=== PATIENT | female | born 1930 | race Caucasian/White ===

== ENCOUNTER 2017-04-05 16:43 | Emergency (ER) | payer MEDICARE, MEDICAID ==
[2017-04-05 16:43] VITALS: PULSE 71; BMI 23.8
[2017-04-05 16:47] VITALS: BP 130/72; TEMP 97.9; O2SAT 98
--- NOTE | 2017-04-05 17:04 | C.PDOC ---
History Of Present Illness 86 y/o female presents to ED with complaints of left ankle pain for 5 days. Patient states she twisted ankle, has been taking Aleve and applying ice to area. Patients states pain is worse when walking and noted swelling which prompted visit to ED today. Patient denies numbness, calf pain, other injury or any other associated complaints at this time. Time Seen by Provider: 04/05/17 16:59 Chief Complaint (Nursing): Lower Extremity Problem/Injury History Per: Patient History/Exam Limitations: no limitations Onset/Duration Of Symptoms: Days Current Symptoms Are (Timing): Still Present - Ankle/Foot Description Of Injury: Twisted Alleviating Factor(s): Ice Therapy, OTC Pain Medication Past Medical History Reviewed: Historical Data, Nursing Documentation, Vital Signs Vital Signs: Last Vital Signs Temp 97.9 F 04/05/17 16:44 Pulse 75 04/05/17 18:44 Resp 18 04/05/17 18:44 BP 130/72 04/05/17 16:44 Pulse Ox 98 04/05/17 20:04 - Medical History PMH: Asthma, Atrial Fibrillation, CHF, Diabetes, HTN, Hypercholesterolemia Surgical History: Coronary Stent - [facility] Procedures ASSISTANCE WITH RESPIRATORY VENTILATION, 24-96 HRS, CPAP (11/17/15) ASSISTANCE WITH RESPIRATORY VENTILATION, <24 HRS, CPAP (05/02/16) Family History: States: Unknown Family Hx - Social History Hx Tobacco Use: No Hx Alcohol Use: No Hx Substance Use: No - Immunization History Hx Tetanus Toxoid Vaccination: No Hx Influenza Vaccination: Yes Hx Pneumococcal Vaccination: No Review Of Systems Eyes: Negative for: Vision Change Respiratory: Negative for: Shortness of Breath Musculoskeletal: Positive for: Leg Pain, Foot Pain. Negative for: Back Pain Skin: Negative for: Rash Physical Exam - Physical Exam Appears: Non-toxic, No Acute Distress Skin: Warm, Dry, No Rash, No Ecchymosis Head: Atraumatic, Normacephalic Eye(s): bilateral: Normal Inspection Neck: Normal ROM Chest: Symmetrical Extremity: Normal ROM, Tenderness (To left ankle below lateral malleolus), No Calf Tenderness, Capillary Refill (<2 seconds), No Deformity, Swelling (To left lateral ankle) Pulses: Left Dorsalis Pedis: Normal, Right Dorsalis Pedis: Normal Neurological/Psych: Oriented x3, Normal Speech, Normal Motor, Normal Sensation Gait: Other (uses cane) ED Course And Treatment O2 Sat by Pulse Oximetry: 98 (RA) Pulse Ox Interpretation: Normal Orthopedic Time Out: Side verified, Site verified Procedure: Splint Type: Posterior Location: Left, Leg Consent obtained: Verbal Performed by: Mid-level Provider Diagnosis: Fracture Type: Closed, Non-displaced Location: Left, Distal Bone: Fibula Capillary refill: Normal Distal Sensation: Normal Compartment: Normal Distal Sensation: Normal Patient tolerated procedure: Well Medical Decision Making Medical Decision Making: Impression: Ankle injury, suspect fx Plan: * Ankle xray Progress, Reassess and Dispo: Ankle xray shows comminuted distal fibula fx. Posterior splint applied by me. Rx given for walker, she does not want crutches. Patient instructed on follow up care with podiatry or orthopedic in timely manner. Family member at bedside accompany patient and understands importance of follow up Disposition Counseled Patient/Family Regarding: Studies Performed, Diagnosis, Need For Followup, Rx Given - Disposition Referrals: Podiatry Clinic [Outside] Elaine Wolfe DPM [Staff Provider] - Catrachita Patel MD [Staff Provider] - Disposition: HOME/ ROUTINE Disposition Time: 17:49 Condition: STABLE Additional Instructions: Your xray shows a fracture. It is very important you follow up with orthopedic within 1-4 days. A splint has been applied which is a temporary cast. Do not wet splint, keep out of bath, and consider plastic bag. Take pain medication as needed. Seek medical attention if develop any numbness or pins and needle sensation. Prescriptions: Walker [Rolling Walker] 1 dev XX PRN #1 dev Instructions: Ankle Fracture (ED), Splint Care (ED) Forms: [facility] (Greek) - POA Present On Arrival: None - Clinical Impression Clinical Impression: Ankle fracture, left - PA / INDEPENDENT DRIVER / Resident Statement MD/DO has reviewed & agrees with the documentation as recorded. - Scribe Statement The provider has reviewed the documentation as recorded by the Aric Mclain All medical record entries made by the Kaceyibcelestine were at my direction and personally dictated by me. I have reviewed the chart and agree that the record accurately reflects my personal performance of the history, physical exam, medical decision making, and the department course for this patient. I have also personally directed, reviewed, and agree with the discharge instructions and disposition.
[2017-04-05 18:44] VITALS: PULSE 75; RESP 18
--- NOTE | 2017-04-05 18:57 | RAD ---
PROCEDURE: Left Ankle Radiographs. HISTORY: pain to ankle s.p injury COMPARISON: None available. FINDINGS: BONES: Intra-articular comminuted fracture of the distal fibula. Degenerative changes. Calcaneal enthesophyte. Heel spur. JOINTS: No dislocation. SOFT TISSUES: Soft tissue swelling. No evidence of radiopaque foreign body. OTHER FINDINGS: None. IMPRESSION: Intra-articular comminuted fracture of the distal fibula with associated soft tissue swelling.
== END 2017-04-05 18:45 | disposition home or self-care (01) ==
LOC: C.ER 16:43
DX: S82.452A Displaced comminuted fracture of shaft of left fibula, initial encounter for closed fracture (principal); X50.1XXA Overexertion from prolonged static or awkward postures, initial encounter; Y92.9 Unspecified place or not applicable

== ENCOUNTER 2017-05-19 02:47 | Inpatient (IN) | payer MEDICARE, MEDICAID ==
[2017-05-19 02:47] VITALS: PULSE 71; BMI 23.8
--- NOTE | 2017-05-19 03:09 | C.PDOC ---
History Of Present Illness 86 year old female was brought to the ED by family for evaluation of left sided weakness for two days. Patient denies any pain, nausea, or vomiting. Chief Complaint (Nursing): Weakness/Neurological Deficit History Per: Family History/Exam Limitations: no limitations Onset/Duration Of Symptoms: Days (2 days ) Current Symptoms Are (Timing): Still Present Seizure Or Post-ictal Symptoms: None Fall Associated With With Symptoms: No Severity: None Pain Scale Rating Of: 0 Recent travel outside of the [place]: No Additional History Per: Patient Past Medical History Reviewed: Historical Data, Nursing Documentation, Vital Signs Vital Signs: Last Vital Signs Temp 97.7 F 05/19/17 07:30 Pulse 71 05/19/17 15:20 Resp 14 05/19/17 15:20 BP 125/63 05/19/17 15:20 Pulse Ox 95 05/19/17 17:56 - Medical History PMH: Asthma, Atrial Fibrillation, CHF, Diabetes, HTN, Hypercholesterolemia Surgical History: Coronary Stent - [facility] Procedures ASSISTANCE WITH RESPIRATORY VENTILATION, 24-96 HRS, CPAP (11/17/15) ASSISTANCE WITH RESPIRATORY VENTILATION, <24 HRS, CPAP (05/02/16) Family History: States: Unknown Family Hx - Social History Hx Tobacco Use: No Hx Alcohol Use: No Hx Substance Use: No - Immunization History Hx Tetanus Toxoid Vaccination: No Hx Influenza Vaccination: Yes Hx Pneumococcal Vaccination: No Review Of Systems Constitutional: Negative for: Fever, Chills Cardiovascular: Negative for: Chest Pain, Palpitations Respiratory: Negative for: Cough, Shortness of Breath Gastrointestinal: Negative for: Nausea, Vomiting, Abdominal Pain, Diarrhea Neurological: Positive for: Weakness (left sided ) Physical Exam - Physical Exam Appears: Non-toxic, No Acute Distress Skin: Warm, Dry Head: Atraumatic, Normacephalic Eye(s): bilateral: Normal Inspection, PERRL, EOMI Oral Mucosa: Moist Neck: Supple Chest: Symmetrical, No Deformity Cardiovascular: Rhythm Regular, No Murmur Respiratory: Normal Breath Sounds, No Rales, No Rhonchi, No Wheezing Gastrointestinal/Abdominal: Soft, No Tenderness, No Distention, No Guarding, No Rebound Extremity: Normal ROM, No Tenderness, No Pedal Edema, No Calf Tenderness, Capillary Refill (good capillary refill, less than two seconds ), No Deformity, No Swelling Neurological/Psych: Oriented x3, Normal Speech, Normal Cognition, Normal Cranial Nerves, No Cerebellar Signs, Normal Motor, Normal Sensation Gait: Steady ED Course And Treatment - Laboratory Results Result Diagrams: 05/19/17 03:25 05/19/17 03:25 O2 Sat by Pulse Oximetry: 95 (RA ) - CT Scan/US CT Head Without Intravenous Contrast Other Rad Studies (CT/US): Read By Radiologist, Radiology Report Reviewed CT/US Interpretation: FINDINGS: Brain: Moderate atrophy. No intracranial hemorrhage. No mass. Few scattered subtle foci of. decreased attenuation within periventricular/subcortical white matter. Chronic lacunar infarct within. RIGHT basal ganglia. No definite edema. Ventricles: No hydrocephalus. Bones/joints: No acute fracture. Soft tissues: Unremarkable. Vasculature: Atherosclerotic disease of intracranial arteries. Sinuses: No acute sinusitis. Mastoid air cells: No mastoid effusion. Orbits: Unremarkable as visualized. IMPRESSION: 1. Nonspecific white matter changes. Acute infarction may be CT occult within first 24 hours. If a. focal deficit persists, consider followup CT or MRI for further evaluation. 2. Incidental/non-acute findings are described above. Chest CT Other Rad Studies (CT/US): Read By Radiologist, Radiology Report Reviewed Progress Note: Head Ct, EKG, and labs were ordered. Patient was given IV fluids. NIHSS Stroke Scale - Date/Time Evaluation Performed Date Performed: 05/19/17 Time Performed: 03:17 When Was NIHSS Performed: Baseline - How Severe is the Stoke Level of Consciousness: 0=Alert LOC to Questions: 0=Both comments correct LOC to commands: 0=Obeys both correctly Best Gaze: 0=Normal Visual: 0=No visual loss Facial: 0=Normal Motor Arm - Left: 0=No drift Motor Arm - Right: 0=No drift Motor Leg - Left: 0=No drift Motor Leg - Right: 0=No drift Limb Ataxia: 0=Absent Sensory: 0=Normal Best Language: 0=No aphasia Dysarthia: 0=Normal articulation Extinction & Inattention (Neglect): 0=Normal, no object Score: 0 Severity Of Stroke: 0= No Stroke Disposition Discussed With : Garcia Menendez Doctor Will See Patient In The: Hospital Counseled Patient/Family Regarding: Diagnosis - Disposition Disposition: HOSPITALIZED Disposition Time: 06:20 Condition: STABLE - POA Present On Arrival: None - Clinical Impression Clinical Impression: TIA (transient ischemic attack), Respiratory infection - Scribe Statement The provider has reviewed the documentation as recorded by the Scribe Christine Kelley All medical record entries made by the Kaceyibcelestine were at my direction and personally dictated by me. I have reviewed the chart and agree that the record accurately reflects my personal performance of the history, physical exam, medical decision making, and the department course for this patient. I have also personally directed, reviewed, and agree with the discharge instructions and disposition.
[2017-05-19] MEDS ORDERED: Sodium Chloride 0.9% 1,000 ML IV ONE (03:15)
[2017-05-19] MEDS ORDERED: Sodium Chloride 0.9% 1,000 ML ONE (03:22)
[2017-05-19 03:28] LABS: BASO # 0.1 K/uL (0.0-0.2); BASO % 0.3 % (0.0-2.0); EOS # 0.1 K/uL (0.0-0.7); EOS % 0.4 % (0.0-4.0); LYMPH # 2.8 K/uL (1.0-4.3); LYMPH % 14.6 % (20.0-40.0); MEAN CELL VOLUME 75.6 fL (81.0-99.0); MEAN CORPUSCULAR HEMOGLOBIN 23.6 pg (27.0-31.0); MEAN CORPUSCULAR HGB CONC 31.3 g/dL (33.0-37.0); MEAN PLATELET VOLUME 10.4 fL (7.2-11.7); MONO # 1.3 K/uL (0.0-0.8); MONO % 6.9 % (0.0-10.0); RED CELL DISTRIBUTION WIDTH 18.3 % (11.5-14.5); WHITE BLOOD COUNT 18.8 K/uL (4.8-10.8)
[2017-05-19 03:38] LABS: POTASSIUM 4.6 mmol/L (3.6-5.2)
[2017-05-19 03:40] LABS: BILIRUBIN,TOTAL 0.6 mg/dL (0.2-1.3)
[2017-05-19 03:41] LABS: ALB/GLOB RATIO 1.3 (1.0-2.1); CALCIUM 8.8 mg/dl (8.6-10.4); TOTAL PROTEIN 6.4 g/dL (6.3-8.3)
--- NOTE | 2017-05-19 05:05 | CT ---
EXAM: CT Head Without Intravenous Contrast CLINICAL HISTORY: 86 years old, female; Pain; Headache TECHNIQUE: Axial computed tomography images of the head/brain without intravenous contrast. All CT scans at this facility use one or more dose reduction techniques, viz.: automated exposure control; ma/kV adjustment per patient size (including targeted exams where dose is matched to indication; i.e. head); or iterative reconstruction technique. Coronal and sagittal reformatted images were created and reviewed. COMPARISON: No relevant prior studies available. FINDINGS: Brain: Moderate atrophy. No intracranial hemorrhage. No mass. Few scattered subtle foci of decreased attenuation within periventricular/subcortical white matter. Chronic lacunar infarct within RIGHT basal ganglia. No definite edema. Ventricles: No hydrocephalus. Bones/joints: No acute fracture. Soft tissues: Unremarkable. Vasculature: Atherosclerotic disease of intracranial arteries. Sinuses: No acute sinusitis. Mastoid air cells: No mastoid effusion. Orbits: Unremarkable as visualized. IMPRESSION: 1. Nonspecific white matter changes. Acute infarction may be CT occult within first 24 hours. If a focal deficit persists, consider followup CT or MRI for further evaluation. 2. Incidental/non-acute findings are described above.
--- NOTE | 2017-05-19 05:20 | CT ---
EXAM: CT Chest Without Intravenous Contrast CLINICAL HISTORY: 86 years old, female; Pain; Chest pain; Patient HX: 06-19-16. Images sent already; Additional info: Leucocytosis TECHNIQUE: Axial computed tomography images of the chest without intravenous contrast. All CT scans at this facility use one or more dose reduction techniques, viz.: automated exposure control; ma/kV adjustment per patient size (including targeted exams where dose is matched to indication; i.e. head); or iterative reconstruction technique. Coronal and sagittal reformatted images were created and reviewed. COMPARISON: CT - CHEST W/O CONTRAST 06/19/2016 10:17:59 AM FINDINGS: Limitations: Lack of intravenous contrast. Motion artifact - mild. Lungs: Minimal mosaic pattern of lung parenchyma. Minimal atelectasis/scarring. No consolidation. Pleural space: No pneumothorax. No significant effusion. Heart: No cardiomegaly. No significant pericardial effusion. Bones/joints: Degenerative changes of spine. No acute fracture. Soft tissues: Unremarkable. Vasculature: Hhsd-he-olhsrvze atherosclerotic disease. No aneurysm. Enlargement pulmonary trunk. Lymph nodes: No pathologically enlarged lymph nodes. Adrenals: Mild hypertrophy of adrenal glands. IMPRESSION: 1. Minimal mosaic pattern of lung parenchyma, nonspecific. 2. Incidental/non-acute findings are described above.
[2017-05-19 06:00] LABS: URINE COLOR YELLOW (YELLOW); URINE GLUCOSE (UA) NEGATIVE (Normal)
[2017-05-19 06:01] LABS: PH,URINE 5.5 (5.0-8.0); RBC URINE 1 /hpf (0-3); URINE BILIRUBIN NEGATIVE (NEGATIVE); URINE BLOOD NEGATIVE (NEGATIVE); URINE KETONE NEGATIVE (NEGATIVE); URINE LEUKOCYTE ESTERASE NEGATIVE Leu/uL (Negative); URINE PROTEIN NEGATIVE (NEGATIVE); URINE UROBILINOGEN 0.2 mg/dL (0.2-1.0)
[2017-05-19 06:02] LABS: WBC URINE 1 /hpf (0-5)
[2017-05-19] MEDS ORDERED: Azithromycin 500mg/250ML NS 500 MG/250 ML BAG IV STA (06:19)
[2017-05-19] MEDS ORDERED: cefTRIAXone IV 1 gm in Dextros 50 ML IVPB ONE (06:29)
[2017-05-19 08:17] LABS: IRON 18 ug/dL (37-170)
[2017-05-19 09:24] LABS: FOLATE 8.3 ng/mL
[2017-05-19] MEDS ORDERED: cefTRIAXone IV 1 gm in Dextros 50 ML IVPB SCH (10:00)
[2017-05-19] MEDS: Azithromycin 500mg/250ML NS 500 MG/250 ML BAG IVPB SCH (13:51)
--- NOTE | 2017-05-19 14:32 | CP.PCM.HP ---
History of Present Illness - History of Present Illness History of Present Illness: An 86-year-old female with PMHasthma, atrial fibrillation, CHF, DM, HTN and hypercholesterolemia presents to the ER for C/O - left-sided weakness for 2 days. C/O - weakness of left side of the body for 2 days, acute in onset, occurred when she was doing routine activities, all of a sudden had dropping the order for left hand and leg. Since then she has slight improvement in power, but still feels her hands and legs are weak. No C/Oheadache, vertigo, tinnitus, vomiting, fever, no other disturbance. Past Patient History - Infectious Disease Hx of Infectious Diseases: None - Past Medical History & Family History Past Medical History?: Yes - Past Social History Smoking Status: Never Smoked - CARDIAC Hx Atrial Fibrillation: Yes Hx Congestive Heart Failure: Yes Hx Hypercholesterolemia: Yes Hx Hypertension: Yes - PULMONARY Hx Asthma: Yes - NEUROLOGICAL Hx Neurological Disorder: Yes - HEENT Hx HEENT Problems: No - RENAL Hx Chronic Kidney Disease: No - ENDOCRINE/METABOLIC Hx Endocrine Disorders: Yes Hx Diabetes Mellitus Type 2: Yes - HEMATOLOGICAL/ONCOLOGICAL Hx Blood Disorders: No - INTEGUMENTARY Hx Dermatological Problems: No - MUSCULOSKELETAL/RHEUMATOLOGICAL Hx Falls: No - GASTROINTESTINAL Hx Gastrointestinal Disorders: No - GENITOURINARY/GYNECOLOGICAL Hx Genitourinary Disorders: No - PSYCHIATRIC Hx Substance Use: No - SURGICAL HISTORY Hx Coronary Stent: Yes - ANESTHESIA Hx Anesthesia: No Hx Anesthesia Reactions: No Meds Home Medications: Home Medication List Medication Instructions Recorded Confirmed Type Apixaban [Eliquis] 2.5 mg PO BID #60 tab 05/22/17 Rx Allergies/Adverse Reactions: Allergies Allergy/AdvReac Type Severity Reaction Status Date / Time diltiazem HCl [From Cardizem] Allergy RASH Verified 05/19/17 02:58 Physical Exam - Constitutional Appears: Well - Head Exam Head Exam: ATRAUMATIC, NORMAL INSPECTION, NORMOCEPHALIC - Eye Exam Eye Exam: EOMI, Normal appearance, PERRL Pupil Exam: NORMAL ACCOMODATION, PERRL - ENT Exam ENT Exam: Mucous Membranes Moist, Normal Exam - Neck Exam Neck exam: Positive for: Normal Inspection - Respiratory Exam Respiratory Exam: Decreased Breath Sounds - Cardiovascular Exam Cardiovascular Exam: REGULAR RHYTHM, +S1, +S2 - GI/Abdominal Exam GI & Abdominal Exam: Diminished Bowel Sounds, Soft - Rectal Exam Rectal Exam: Deferred Results - Vital Signs Recent Vital Signs: Last Vital Signs Temp 97.7 F 05/19/17 07:30 Pulse 83 05/19/17 11:57 Resp 15 05/19/17 11:57 BP 122/59 L 05/19/17 11:57 Pulse Ox 99 05/19/17 11:57 - Labs Result Diagrams: 05/22/17 11:59 05/22/17 11:59 Labs: Laboratory Results - last 24 hr 05/19/17 05/19/17 05/19/17 03:25 03:25 04:58 WBC 18.8 H RBC 3.70 L Hgb 8.7 L Hct 28.0 L MCV 75.6 L D MCH 23.6 L MCHC 31.3 L RDW 18.3 H Plt Count 184 MPV 10.4 Neut % (Auto) 77.8 H Lymph % (Auto) 14.6 L [place] % (Auto) 6.9 Eos % (Auto) 0.4 Baso % (Auto) 0.3 Neut # 14.6 H Lymph # 2.8 [place] # 1.3 H Eos # 0.1 Baso # 0.1 Sodium 138 Potassium 4.6 Chloride 98 Carbon Dioxide 23 Anion Gap 21 H BUN 46 H Creatinine 1.6 H Est GFR ( Amer) 37 Est GFR (Non-Af Amer) 31 POC Glucose (mg/dL) Random Glucose 120 H Calcium 8.8 Iron TIBC % Saturation Total Bilirubin 0.6 AST 17 ALT 25 Alkaline Phosphatase 48 Total Protein 6.4 Albumin 3.6 Globulin 2.8 Albumin/Globulin Ratio 1.3 Vitamin B12 Folate Urine Color Yellow Urine Clarity Clear Urine pH 5.5 Ur Specific [place] 1.010 Urine Protein Negative Urine Glucose (UA) Negative Urine Ketones Negative Urine Blood Negative Urine Nitrate Negative Urine Bilirubin Negative Urine Urobilinogen 0.2 Ur Leukocyte Esterase Negative Urine WBC (Auto) 1 Urine RBC (Auto) 1 Ur Squamous Epith Cells 1 Stool Occult Blood Blood Type Blood Type Confirm Antibody Screen 05/19/17 05/19/17 05/19/17 07:12 07:12 07:12 WBC RBC Hgb Hct MCV MCH MCHC RDW Plt Count MPV Neut % (Auto) Lymph % (Auto) [place] % (Auto) Eos % (Auto) Baso % (Auto) Neut # Lymph # [place] # Eos # Baso # Sodium Potassium Chloride Carbon Dioxide Anion Gap BUN Creatinine Est GFR ( Amer) Est GFR (Non-Af Amer) POC Glucose (mg/dL) Random Glucose Calcium Iron 18 L TIBC 408 % Saturation 4 L Total Bilirubin AST ALT Alkaline Phosphatase Total Protein Albumin Globulin Albumin/Globulin Ratio Vitamin B12 420 Folate 8.3 Urine Color Urine Clarity Urine pH Ur Specific [place] Urine Protein Urine Glucose (UA) Urine Ketones Urine Blood Urine Nitrate Urine Bilirubin Urine Urobilinogen Ur Leukocyte Esterase Urine WBC (Auto) Urine RBC (Auto) Ur Squamous Epith Cells Stool Occult Blood Blood Type A POSITIVE Blood Type Confirm A POSITIVE Antibody Screen Negative 05/19/17 05/19/17 05/19/17 07:18 07:39 11:29 WBC RBC Hgb Hct MCV MCH MCHC RDW Plt Count MPV Neut % (Auto) Lymph % (Auto) [place] % (Auto) Eos % (Auto) Baso % (Auto) Neut # Lymph # [place] # Eos # Baso # Sodium Potassium Chloride Carbon Dioxide Anion Gap BUN Creatinine Est GFR ( Amer) Est GFR (Non-Af Amer) POC Glucose (mg/dL) 163 H 177 H Random Glucose Calcium Iron TIBC % Saturation Total Bilirubin AST ALT Alkaline Phosphatase Total Protein Albumin Globulin Albumin/Globulin Ratio Vitamin B12 Folate Urine Color Urine Clarity Urine pH Ur Specific [place] Urine Protein Urine Glucose (UA) Urine Ketones Urine Blood Urine Nitrate Urine Bilirubin Urine Urobilinogen Ur Leukocyte Esterase Urine WBC (Auto) Urine RBC (Auto) Ur Squamous Epith Cells Stool Occult Blood Negative Blood Type Blood Type Confirm Antibody Screen
[2017-05-19] MEDS: Ranolazine 500 mg Extended Release Tablets PO SCH (18:13)
[2017-05-20 08:58] LABS: CHOLESTEROL 130 mg/dL (0-199)
[2017-05-20] MEDS: cefTRIAXone IV 1 gm in Dextros 50 ML IVPB SCH (09:30)
[2017-05-20] MEDS ORDERED: Home Med 1 UNIT (Metformin 500 mg) PO SCH (10:00)
[2017-05-20] MEDS: Ranolazine 500 mg Extended Release Tablets PO SCH ×2 (10:30→18:33)
[2017-05-20] MEDS: Potassium Chloride 10 mEq ER Tab PO SCH (11:13)
[2017-05-20] MEDS: Azithromycin 500mg/250ML NS 500 MG/250 ML BAG IVPB SCH (13:55)
--- NOTE | 2017-05-20 20:33 | CP.PCM.PN ---
Subjective - Date & Time of Evaluation Date of Evaluation: 05/20/17 Time of Evaluation: 12:20 - Subjective Subjective: clinically same Objective - Vital Signs/Intake and Output Vital Signs (last 24 hours): Temp Pulse Resp BP Pulse Ox 98.2 F 77 18 161/83 H 98 05/20/17 16:00 05/20/17 16:00 05/20/17 16:00 05/20/17 18:34 05/20/17 16:00 - Medications Medications: Current Medications Apixaban (Eliquis) 2.5 mg PO BID [facility] Last Admin: 05/20/17 18:33 Dose: 2.5 mg Aspirin (Ecotrin) 81 mg PO DAILY [facility] Last Admin: 05/20/17 11:13 Dose: 81 mg Carvedilol (Coreg) 12.5 mg PO BID [facility] Last Admin: 05/20/17 18:34 Dose: 12.5 mg Furosemide (Lasix) 40 mg PO BID [facility] Last Admin: 05/20/17 18:34 Dose: 40 mg Home Med (Dexlansoprazole [Dexilant]) 60 mg PO DAILY [facility] Home Med (Metformin) 500 mg PO DAILY [facility] Ceftriaxone Sodium (Rocephin Iv 1 Gm Duplex) 50 mls @ 100 mls/hr IVPB DAILY [facility] Last Admin: 05/20/17 09:30 Dose: 100 mls/hr Azithromycin (Zithromax 500mg In Ns Addvantage) 500 mg in 250 mls @ 167 mls/hr IVPB Q24H [facility] Last Admin: 05/20/17 13:55 Dose: 167 mls/hr Losartan Potassium (Cozaar) 50 mg PO BID [facility] Last Admin: 05/20/17 18:33 Dose: 50 mg Potassium Chloride (Klor-Con 10) 10 meq PO DAILY [facility] Last Admin: 05/20/17 11:13 Dose: 10 meq Ranolazine (Ranexa) 500 mg PO BID [facility] Last Admin: 05/20/17 18:33 Dose: 500 mg Rosuvastatin Calcium (Crestor) 5 mg PO HS [facility] Last Admin: 05/19/17 22:26 Dose: 5 mg - Labs Labs: 05/19/17 03:25 05/19/17 03:25 - Constitutional Appears: Well - Head Exam Head Exam: ATRAUMATIC, NORMAL INSPECTION, NORMOCEPHALIC - Eye Exam Eye Exam: EOMI, Normal appearance, PERRL Pupil Exam: NORMAL ACCOMODATION, PERRL - ENT Exam ENT Exam: Mucous Membranes Moist, Normal Exam - Neck Exam Neck Exam: Full ROM, Normal Inspection. absent: Lymphadenopathy - Respiratory Exam Respiratory Exam: Decreased Breath Sounds - Cardiovascular Exam Cardiovascular Exam: REGULAR RHYTHM, +S1, +S2 - GI/Abdominal Exam GI & Abdominal Exam: Soft, Diminished Bowel Sounds - Rectal Exam Rectal Exam: Deferred - Back Exam Back Exam: NORMAL INSPECTION - Neurological Exam Neurological Exam: Alert, Awake, CN II-XII Intact, Normal Gait, Oriented x3 - Psychiatric Exam Psychiatric exam: Normal Affect, Normal Mood - Skin Skin Exam: Dry, Intact, Normal Color, Warm Assessment and Plan (1) Ankle fracture, left Status: Acute (2) Atrial fibrillation with RVR Status: Acute (3) Atrial fibrillation with slow ventricular response Status: Acute (4) Chronic obstructive lung disease Status: Acute (5) Flash pulmonary edema Status: Acute (6) Prophylactic measure Status: Acute (7) Respiratory distress Status: Acute (8) Respiratory infection Status: Acute (9) TIA (transient ischemic attack) Status: Acute (10) Atrial fibrillation Status: Chronic (11) CHF (congestive heart failure) Status: Chronic (12) Chronic congestive heart failure Status: Chronic (13) Diabetes Status: Chronic (14) HTN (hypertension) Status: Chronic (15) Hyperlipidemia Status: Chronic - Assessment and Plan (Free Text) Plan: CT scan chest suggestive of minimal mosaic pattern of lung parenchyma. Nonspecific changes. CT scan had suggestive of nonspecific white matter changes. EKG suggestive of AF with premature ventricle contractions or aberrantly conducted complexes. Low voltage QRS complex. Left posterior fascicular block. Possible inferior infarct. Continue aspirin, ranolazine, supportive medications.
--- NOTE | 2017-05-21 03:56 | CON ---
DATE: HISTORY OF PRESENT ILLNESS: An 86-year-old female brought to the hospital with left-sided weakness. The patient is complaining of a little shaking of the left upper extremity. Denies any weakness. CAT scan of the head was done, which was reported negative. Called to evaluate the patient. PAST MEDICAL HISTORY: Asthma, atrial fibrillation, CHF, diabetes, hypertension, high cholesterol, status post coronary stents. REVIEW OF SYSTEMS: A 10-point review of systems was negative. PHYSICAL EXAMINATION: VITAL SIGNS: Blood pressure was 125/53. HEENT: Normocephalic and atraumatic. NECK: Supple. NEUROLOGIC: Alert, awake, and oriented x3. No aphasia. Cranial nerves II through XII are tested. Pupils reactive to light. EOM intact. Visual lira full. No facial asymmetry. Tongue midline. Motor examination, moves all the extremities equally. Tone normal. Deep tendon reflexes 1+. Both plantars are downgoing. Sensory appears intact. Cerebellar and gait was deferred. IMPRESSION: Headache, possibly migraine-type headache and possibly transient ischemic attack. CAT scan of the head was negative. We will do carotid Doppler and continue present management. We will follow up. Pedro Logan MD
[2017-05-21] MEDS: Ranolazine 500 mg Extended Release Tablets PO SCH ×2 (09:30→22:40)
[2017-05-21] MEDS: cefTRIAXone IV 1 gm in Dextros 50 ML IVPB SCH (09:31)
[2017-05-21] MEDS: Potassium Chloride 10 mEq ER Tab PO SCH (09:33)
--- NOTE | 2017-05-21 11:01 | CP.PCM.PN ---
<Kike Segal - Last Filed: 05/21/17 13:51> Subjective - Date & Time of Evaluation Date of Evaluation: 05/21/17 Time of Evaluation: 11:01 - Subjective Subjective: Patient seen and examined at bedside this AM; states she slept well and in no pain; will be going for carotid doppler studies today Objective - Vital Signs/Intake and Output Vital Signs (last 24 hours): Temp Pulse Resp BP Pulse Ox 98.3 F 76 18 131/70 95 05/21/17 07:25 05/21/17 09:27 05/21/17 07:25 05/21/17 09:30 05/21/17 07:25 Intake and Output: 05/21/17 05/21/17 06:59 18:59 Intake Total 358 Balance 358 - Medications Medications: Current Medications Apixaban (Eliquis) 2.5 mg PO BID [facility] Last Admin: 05/21/17 09:30 Dose: 2.5 mg Aspirin (Ecotrin) 81 mg PO DAILY [facility] Last Admin: 05/21/17 09:30 Dose: 81 mg Carvedilol (Coreg) 12.5 mg PO BID [facility] Last Admin: 05/21/17 09:30 Dose: 12.5 mg Furosemide (Lasix) 40 mg PO BID [facility] Last Admin: 05/21/17 09:30 Dose: 40 mg Home Med (Dexlansoprazole [Dexilant]) 60 mg PO DAILY [facility] Home Med (Metformin) 500 mg PO DAILY [facility] Ceftriaxone Sodium (Rocephin Iv 1 Gm Duplex) 50 mls @ 100 mls/hr IVPB DAILY [facility] Last Admin: 05/21/17 09:31 Dose: 100 mls/hr Azithromycin (Zithromax 500mg In Ns Addvantage) 500 mg in 250 mls @ 167 mls/hr IVPB Q24H [facility] Last Admin: 05/20/17 13:55 Dose: 167 mls/hr Losartan Potassium (Cozaar) 50 mg PO BID [facility] Last Admin: 05/21/17 09:30 Dose: 50 mg Potassium Chloride (Klor-Con 10) 10 meq PO DAILY [facility] Last Admin: 05/21/17 09:33 Dose: 10 meq Ranolazine (Ranexa) 500 mg PO BID [facility] Last Admin: 05/21/17 09:30 Dose: 500 mg Rosuvastatin Calcium (Crestor) 5 mg PO HS [facility] Last Admin: 05/20/17 21:52 Dose: 5 mg - Labs Labs: 05/19/17 03:25 05/19/17 03:25 - Constitutional Appears: Non-toxic - Head Exam Head Exam: ATRAUMATIC - Eye Exam Eye Exam: EOMI Pupil Exam: PERRL - ENT Exam ENT Exam: Mucous Membranes Moist - Neck Exam Neck Exam: Full ROM. absent: Lymphadenopathy - Respiratory Exam Respiratory Exam: Clear to Ausculation Bilateral, NORMAL BREATHING PATTERN. absent: Rales, Rhonchi, Wheezes - Cardiovascular Exam Cardiovascular Exam: Irregular Rhythm, +S1, +S2, Murmur. absent: REGULAR RHYTHM - GI/Abdominal Exam GI & Abdominal Exam: Soft, Normal Bowel Sounds - Extremities Exam Extremities Exam: Full ROM. absent: Calf Tenderness - Back Exam Back Exam: NORMAL INSPECTION. absent: CVA tenderness (L), CVA tenderness (R) - Neurological Exam Neurological Exam: Alert, Awake, Oriented x3 - Skin Skin Exam: Warm Assessment and Plan - Assessment and Plan (Free Text) Assessment: 86yo F admitted for weakness for 2 days TIA vs Migraine -Neuro Consult; Dr. Guzmán, appreciate recs -patient has multiple risk factors for stroke; HLD, HTN; DM; already on anticoagulation -will f/u carotid doppler ordered and echo results pending -patient has no complaints today; ANOx3, speaking clearly in her language, praying in bed c/w all other medical management for chronic medical issues All management as per Dr. Ester Segal PGY2 <Garcia Menendez - Last Filed: 06/25/17 17:51> Objective - Vital Signs/Intake and Output Vital Signs (last 24 hours): Temp Pulse Resp BP Pulse Ox 98.1 F 73 20 130/74 99 05/22/17 15:01 05/22/17 15:01 05/22/17 15:01 05/22/17 15:01 05/22/17 15:01 - Labs Labs: 05/22/17 11:59 05/22/17 11:59 Attending/Attestation - Attestation I have personally seen and examined this patient.: Yes I have fully participated in the care of the patient.: Yes I have reviewed all pertinent clinical information, including history, physical exam and plan: Yes Notes (Text): Patient. No fresh complaints. Plan carotid Doppler. Continue all supportive medications.
--- NOTE | 2017-05-21 11:42 | CP.PCM.PCO ---
Physician Communication Note - Physician Communication Note Physician Communication Note: c/w with elquis and baby asa. f/u in office.
[2017-05-21] MEDS: Azithromycin 500mg/250ML NS 500 MG/250 ML BAG IVPB SCH (14:00)
[2017-05-21] MEDS: Pantoprazole 40 mg EC Tab PO SCH (14:37)
[2017-05-21 18:54] VITALS: RESP 20
--- NOTE | 2017-05-21 19:43 | CP.PCM.PN ---
Subjective - Date & Time of Evaluation Date of Evaluation: 05/21/17 Time of Evaluation: 12:20 - Subjective Subjective: clinically same Objective - Vital Signs/Intake and Output Vital Signs (last 24 hours): Temp Pulse Resp BP Pulse Ox 98.2 F 74 20 102/62 96 05/21/17 15:10 05/21/17 15:10 05/21/17 15:10 05/21/17 15:10 05/21/17 15:10 Intake and Output: 05/21/17 05/22/17 18:59 06:59 Intake Total 500 Balance 500 - Medications Medications: Current Medications Apixaban (Eliquis) 2.5 mg PO BID [facility] Last Admin: 05/21/17 09:30 Dose: 2.5 mg Aspirin (Ecotrin) 81 mg PO DAILY [facility] Last Admin: 05/21/17 09:30 Dose: 81 mg Carvedilol (Coreg) 12.5 mg PO BID [facility] Last Admin: 05/21/17 09:30 Dose: 12.5 mg Furosemide (Lasix) 40 mg PO BID [facility] Last Admin: 05/21/17 09:30 Dose: 40 mg Ceftriaxone Sodium (Rocephin Iv 1 Gm Duplex) 50 mls @ 100 mls/hr IVPB DAILY [facility] Last Admin: 05/21/17 09:31 Dose: 100 mls/hr Azithromycin (Zithromax 500mg In Ns Addvantage) 500 mg in 250 mls @ 167 mls/hr IVPB Q24H [facility] Last Admin: 05/21/17 14:00 Dose: 167 mls/hr Losartan Potassium (Cozaar) 50 mg PO BID [facility] Last Admin: 05/21/17 09:30 Dose: 50 mg Pantoprazole Sodium (Protonix Ec Tab) 40 mg PO DAILY [facility] Last Admin: 05/21/17 14:37 Dose: 40 mg Potassium Chloride (Klor-Con 10) 10 meq PO DAILY [facility] Last Admin: 05/21/17 09:33 Dose: 10 meq Ranolazine (Ranexa) 500 mg PO BID [facility] Last Admin: 05/21/17 09:30 Dose: 500 mg Rosuvastatin Calcium (Crestor) 5 mg PO HS [facility] Last Admin: 05/20/17 21:52 Dose: 5 mg - Labs Labs: 05/19/17 03:25 05/19/17 03:25 - Constitutional Appears: Well - Head Exam Head Exam: ATRAUMATIC, NORMAL INSPECTION, NORMOCEPHALIC - Eye Exam Eye Exam: EOMI, Normal appearance, PERRL Pupil Exam: NORMAL ACCOMODATION, PERRL - ENT Exam ENT Exam: Mucous Membranes Moist, Normal Exam - Neck Exam Neck Exam: Full ROM, Normal Inspection. absent: Lymphadenopathy - Respiratory Exam Respiratory Exam: Decreased Breath Sounds - Cardiovascular Exam Cardiovascular Exam: REGULAR RHYTHM, +S1, +S2 - GI/Abdominal Exam GI & Abdominal Exam: Soft, Diminished Bowel Sounds - Rectal Exam Rectal Exam: Deferred - Back Exam Back Exam: NORMAL INSPECTION - Neurological Exam Neurological Exam: Alert, Awake, CN II-XII Intact, Normal Gait, Oriented x3 - Psychiatric Exam Psychiatric exam: Normal Affect, Normal Mood - Skin Skin Exam: Dry, Intact, Normal Color, Warm Assessment and Plan (1) Ankle fracture, left Status: Acute (2) Atrial fibrillation with RVR Status: Acute (3) Atrial fibrillation with slow ventricular response Status: Acute (4) Chronic obstructive lung disease Status: Acute (5) Flash pulmonary edema Status: Acute (6) Prophylactic measure Status: Acute (7) Respiratory distress Status: Acute (8) Respiratory infection Status: Acute (9) TIA (transient ischemic attack) Status: Acute (10) Atrial fibrillation Status: Chronic (11) CHF (congestive heart failure) Status: Chronic (12) Chronic congestive heart failure Status: Chronic (13) Diabetes Status: Chronic (14) HTN (hypertension) Status: Chronic (15) Hyperlipidemia Status: Chronic - Assessment and Plan (Free Text) Plan: Patient clinically the same. No fresh complaints. Continue aspirin, carvedilol, ranolazine, supportive medications.
[2017-05-22 09:03] VITALS: O2SAT 99
[2017-05-22] MEDS: Ranolazine 500 mg Extended Release Tablets PO SCH (09:50)
[2017-05-22] MEDS: Pantoprazole 40 mg EC Tab PO SCH (09:50)
--- NOTE | 2017-05-22 10:13 | CP.PCM.PN ---
<Maynor Wharton - Last Filed: 05/22/17 15:23> Subjective - Date & Time of Evaluation Date of Evaluation: 05/22/17 Time of Evaluation: 10:10 - Subjective Subjective: PGY-[address] Menendez's service: Pt seen and examined at bedside. Nursing reports no acute events overnight. Seen with attending, patient resting comfortably in bed eating dinner. Marked for discharge today, will follow up at Dr. Menendez's office on Sunday. Objective - Vital Signs/Intake and Output Vital Signs (last 24 hours): Temp Pulse Resp BP Pulse Ox 98.8 F 87 20 127/73 99 05/22/17 09:01 05/22/17 09:49 05/22/17 09:01 05/22/17 09:50 05/22/17 09:01 - Medications Medications: Current Medications Apixaban (Eliquis) 2.5 mg PO BID [facility] Last Admin: 05/22/17 09:50 Dose: 2.5 mg Aspirin (Ecotrin) 81 mg PO DAILY [facility] Last Admin: 05/22/17 09:50 Dose: 81 mg Carvedilol (Coreg) 12.5 mg PO BID [facility] Last Admin: 05/22/17 09:50 Dose: 12.5 mg Furosemide (Lasix) 40 mg PO BID [facility] Last Admin: 05/22/17 09:50 Dose: 40 mg Ceftriaxone Sodium (Rocephin Iv 1 Gm Duplex) 50 mls @ 100 mls/hr IVPB DAILY [facility] Last Admin: 05/21/17 09:31 Dose: 100 mls/hr Azithromycin (Zithromax 500mg In Ns Addvantage) 500 mg in 250 mls @ 167 mls/hr IVPB Q24H [facility] Last Admin: 05/21/17 14:00 Dose: 167 mls/hr Losartan Potassium (Cozaar) 50 mg PO BID [facility] Last Admin: 05/21/17 22:43 Dose: Not Given Pantoprazole Sodium (Protonix Ec Tab) 40 mg PO DAILY [facility] Last Admin: 05/22/17 09:50 Dose: 40 mg Potassium Chloride (Klor-Con 10) 10 meq PO DAILY [facility] Last Admin: 05/21/17 09:33 Dose: 10 meq Ranolazine (Ranexa) 500 mg PO BID [facility] Last Admin: 05/22/17 09:50 Dose: 500 mg Rosuvastatin Calcium (Crestor) 5 mg PO HS [facility] Last Admin: 05/21/17 22:39 Dose: 5 mg - Labs Labs: 05/19/17 03:25 05/19/17 03:25 - Constitutional Appears: Non-toxic, No Acute Distress - Head Exam Head Exam: ATRAUMATIC - Eye Exam Eye Exam: EOMI, PERRL - ENT Exam ENT Exam: Mucous Membranes Moist - Neck Exam Neck Exam: Full ROM - Respiratory Exam Respiratory Exam: Clear to Ausculation Bilateral, NORMAL BREATHING PATTERN. absent: Rales, Rhonchi, Wheezes - Cardiovascular Exam Cardiovascular Exam: Irregular Rhythm, +S1, +S2, Murmur - GI/Abdominal Exam GI & Abdominal Exam: Soft, Normal Bowel Sounds. absent: Tenderness - Extremities Exam Extremities Exam: Normal Inspection. absent: Pedal Edema - Neurological Exam Neurological Exam: Alert, Awake, Oriented x3 - Psychiatric Exam Psychiatric exam: Normal Affect, Normal Mood - Skin Skin Exam: Normal Color, Warm Assessment and Plan - Assessment and Plan (Free Text) Plan: 86yo F admitted for weakness for 2 days TIA vs Migraine -Neuro Consult; Dr. Logan, appreciate recs - pt on eliquis 2.5mg PO BID, and baby ASA; f/u in office -patient has multiple risk factors for stroke; HLD, HTN; DM; already on anticoagulation -carotid doppler: WNL - echo results pending -patient has no complaints today; ANOx3, speaking clearly in her language, praying in bed c/w all other medical management for chronic medical issues Maynor Wharton PGY-2 All management as per Dr. Ester Menendez <Garcia Menendez - Last Filed: 06/25/17 15:31> Objective - Vital Signs/Intake and Output Vital Signs (last 24 hours): Temp Pulse Resp BP Pulse Ox 98.1 F 73 20 130/74 99 05/22/17 15:01 05/22/17 15:01 05/22/17 15:01 05/22/17 15:01 05/22/17 15:01 - Labs Labs: 05/22/17 11:59 05/22/17 11:59 Attending/Attestation - Attestation I have personally seen and examined this patient.: Yes I have fully participated in the care of the patient.: Yes I have reviewed all pertinent clinical information, including history, physical exam and plan: Yes Notes (Text): patient currently asymptomatic. Discharge today. Patient on Eliquis 2.5 mg oral twice daily and baby aspirin. Continue antihypertensive and other supportive medications.
[2017-05-22] MEDS: cefTRIAXone IV 1 gm in Dextros 50 ML IVPB SCH (11:00)
[2017-05-22 12:10] LABS: BASO # 0.1 K/uL (0.0-0.2); BASO % 0.8 % (0.0-2.0); EOS # 0.2 K/uL (0.0-0.7); EOS % 1.8 % (0.0-4.0); HEMATOCRIT 29.9 % (34.0-47.0); LYMPH # 3.5 K/uL (1.0-4.3); LYMPH % 38.4 % (20.0-40.0); MEAN CORPUSCULAR HGB CONC 31.5 g/dL (33.0-37.0); MEAN PLATELET VOLUME 11.4 fL (7.2-11.7); MONO # 0.8 K/uL (0.0-0.8); MONO % 8.4 % (0.0-10.0); NRBC % 0.1 % (0.0-2.0); RED CELL DISTRIBUTION WIDTH 18.1 % (11.5-14.5)
[2017-05-22 12:31] LABS: WHITE BLOOD COUNT 9.1 K/uL (4.8-10.8)
[2017-05-22 12:40] LABS: POTASSIUM 4.5 mmol/L (3.6-5.2)
[2017-05-22 12:42] LABS: ALB/GLOB RATIO 1.2 (1.0-2.1); BILIRUBIN,TOTAL 0.5 mg/dL (0.2-1.3); CALCIUM 9.2 mg/dl (8.6-10.4); TOTAL PROTEIN 7.2 g/dL (6.3-8.3)
[2017-05-22 12:43] LABS: MAGNESIUM 1.8 mg/dL (1.6-2.3)
[2017-05-22] MEDS: Potassium Chloride 10 mEq ER Tab PO SCH (14:00)
[2017-05-22] MEDS: Azithromycin 500mg/250ML NS 500 MG/250 ML BAG IVPB SCH (14:00)
--- NOTE | 2017-05-22 14:03 | CARD ---
APPROVED REPORT EKG Measurement Heart [id number] <Conclusion> Atrial fibrillation with premature ventricular or aberrantly conducted complexes Low voltage QRS Left posterior fascicular block Possible Inferior infarct, age undetermined Cannot rule out Anteroseptal infarct, age undetermined Abnormal ECG
--- NOTE | 2017-05-22 15:42 | VASCLAB ---
PROCEDURE: HISTORY: TIA COMPARISON: None available. TECHNIQUE: Grayscale and duplex Doppler evaluation of the cervical carotid and vertebral arteries were performed. The common carotid, carotid bifurcations and cervical Internal Carotid Artery (ICA) and proximal External Carotid Artery (ECA) were evaluated. The vertebral arteries were evaluated for gross patency and flow direction. Report prepared by GO Flores FINDINGS: RIGHT CAROTID ARTERIES: 1. Common Carotid Artery: No significant focal plaque formation of the right common carotid artery. Maximum Peak Systolic velocity: 59 cm/sec: End-diastolic velocity 10 cm/sec. 2. Carotid Bifurcation: plaque formation. Maximum Peak Systolic velocity: 37 cm/sec: End-diastolic velocity 8 cm/sec. 3. Internal Carotid Artery: Plaque description: Minimal calcific 3.1. Proximal Segment: Peak systolic velocity 71 cm/sec: End-diastolic velocity 15 cm/sec - % stenosis 0-15% 3.2. Middle Segment: Peak systolic velocity 71 cm/sec: End-diastolic velocity 19 cm/sec - % stenosis 0-15% 3.3. Distal Segment: Peak systolic velocity 47 cm/sec: End-diastolic velocity 10 cm/sec - % stenosis 0-15% 4. External Carotid Artery: No significant focal plaque formation. Peak systolic velocity 56 cm/sec 5. ICA/CCA Ratio: 1.4 LEFT CAROTID ARTERIES: 1. Common Carotid Artery: No significant focal plaque formation of the left common carotid artery. Maximum Peak Systolic velocity: 77 cm/sec: End-diastolic velocity 12 cm/sec. 2. Carotid Bifurcation: Calcific plaque formation. Maximum Peak Systolic velocity: 63 cm/sec: End-diastolic velocity 11 cm/sec. 3. Internal Carotid Artery: Plaque description: Calcific 3.1. Proximal Segment: Peak systolic velocity 77 cm/sec: End-diastolic velocity 22 cm/sec - % stenosis 0-15% 3.2. Middle Segment: Peak systolic velocity 99 cm/sec: End-diastolic velocity 25 cm/sec - % stenosis 0-15% 3.3. Distal Segment: Peak systolic velocity 97 cm/sec: End-diastolic velocity 25 cm/sec - % stenosis 0-15% 4. External Carotid Artery: No significant focal plaque formation. Peak systolic velocity 60 cm/sec 5. ICA/CCA Ratio: 1.6 VERTEBRAL ARTERIES: 1. Right Vertebral Artery: The right vertebral artery flow direction is antegrade. 2. Left Vertebral Artery: The left vertebral artery flow direction is antegrade. OTHER FINDINGS: 1. Right Brachial Blood pressure: 100 mmHg. 2. Left Brachial Blood pressure: 110 mmHg. IMPRESSION: RIGHT: Duplex scan does not suggest hemodynamically significant stenosis of the right extracranial carotid arteries. LEFT: Duplex scan does not suggest hemodynamically significant stenosis of the left extracranial carotid arteries.
[2017-05-22 18:02] VITALS: BP 130/74; PULSE 73; TEMP 98.1
== END 2017-05-22 16:45 | disposition home or self-care (01) | DRG 69 ==
LOC: C.ER 02:47 → C.9E 06:21 → C.6T 18:47
PROVIDERS: ADMIT Internal Medicine Nephrology; ATTEND Internal Medicine Nephrology
DX: G45.9 Transient cerebral ischemic attack, unspecified (principal); I11.0 Hypertensive heart disease with heart failure; I48.91 Unspecified atrial fibrillation; I50.9 Heart failure, unspecified; E11.9 Type 2 diabetes mellitus without complications; J45.909 Unspecified asthma, uncomplicated; J98.8 Other specified respiratory disorders; G43.909 Migraine, unspecified, not intractable, without status migrainosus; R53.1 Weakness; E78.00 Pure hypercholesterolemia, unspecified; Z95.5 Presence of coronary angioplasty implant and graft; Z79.01 Long term (current) use of anticoagulants

== ENCOUNTER 2017-12-22 08:41 | Observation (INO) | payer MEDICARE, MEDICAID ==
[2017-12-22 08:41] VITALS: PULSE 71
[2017-12-22 08:45] VITALS: BMI 15.4
--- NOTE | 2017-12-22 08:52 | C.PDOC ---
History Of Present Illness As per Family, [id number] female presents to ED for recurrence of SOB onset [employer]. Patient has Hx of CHF with similar prior episodes. Per EMS, patient had severe SOB retractions tripod. S/P lasix 40, NG x2, BIPAP and has not improved. Denies fever or chest pain. Patient is complaint with medication. LIMITED DUE TO CLIN COND HX PER EMS, FAMILY RECUR SOB ONSET [employer]. HO CHF, SIM PRIOR EPISODES. PER EMS, PT SEVERE SOB RETRACTIONS TRIPOD. S/P LASIX 40, NG X 2, BIPAP NOW MUCH IMPROVED PER EMS. NO FEVER, CP. COMPLIANT W MEDS. ROS LIMITED EXAM MOD RESP DIST NONTOXIC BIPAP IN PROGRESS LUNGS RETRACTIONS B/L BASILAR RALES EXP WHEEZE NO EDEMA WARM DRY REMAINDER NEG Time Seen by Provider: 12/22/17 08:48 Chief Complaint (Nursing): Respiratory Distress History Per: EMS, Family History/Exam Limitations: clinical condition Onset/Duration Of Symptoms: Hrs Current Symptoms Are (Timing): Still Present Current Respiratory Medications: See Home Med List Associated Symptoms: denies: Fever, Chills, Chest Pain Recent travel outside of the [place]: No Past Medical History Reviewed: Historical Data, Nursing Documentation, Vital Signs Vital Signs: Last Vital Signs Temp 98.3 F 12/22/17 08:45 Pulse 78 12/22/17 12:00 Resp 20 12/22/17 12:00 BP 116/62 12/22/17 12:00 Pulse Ox 100 12/22/17 12:00 - Medical History PMH: Asthma, Atrial Fibrillation, CHF, Diabetes, HTN, Hypercholesterolemia Surgical History: Coronary Stent - [facility] Procedures ASSISTANCE WITH RESPIRATORY VENTILATION, 24-96 HRS, CPAP (11/17/15) ASSISTANCE WITH RESPIRATORY VENTILATION, <24 HRS, CPAP (05/02/16) Family History: States: Unknown Family Hx - Social History Hx Tobacco Use: No Hx Alcohol Use: No Hx Substance Use: No - Immunization History Hx Tetanus Toxoid Vaccination: No Hx Influenza Vaccination: Yes Hx Pneumococcal Vaccination: No Review Of Systems Review Of Systems: ROS cannot be obtained secondary to pt's inabilty to answer questions. (Limited due to clinical condition) Physical Exam - Physical Exam Appears: Non-toxic Skin: Warm, Dry Head: Atraumatic, Normacephalic Eye(s): bilateral: Normal Inspection, PERRL, EOMI Oral Mucosa: Moist Neck: Supple Chest: Symmetrical, No Tenderness Cardiovascular: Rhythm Regular Respiratory: Rales (Basilar), No Rhonchi, Wheezing (Expiratory), Other ( Moderate distention; Lungs retractions B/L ) Gastrointestinal/Abdominal: Soft, No Tenderness Extremity: Normal ROM, No Pedal Edema, No Deformity Neurological/Psych: Oriented x3, Normal Speech, Normal Cognition ED Course And Treatment - Laboratory Results Result Diagrams: 12/22/17 09:23 12/22/17 10:15 - Radiology CXR: Interpreted by Me CXR Interpretation: Yes: Other (CHF) - Other Rad CXR X-Ray: Viewed By Me, Read By Radiologist Interpretation: PROCEDURE: CHEST RADIOGRAPH, 1 VIEW. HISTORY: SOB. COMPARISON: Comparison chest dated 07/10/2016. FINDINGS: LUNGS: Findings in most likely represent mild asymmetric pulmonary vascular congestive changes left greater than right. There may also be small bilateral effusions left larger than right. PLEURA: As above. No apparent pneumothorax. CARDIOVASCULAR : Mild cardiomegaly. OSSEOUS STRUCTURES: No significant abnormalities. VISUALIZED UPPER ABDOMEN: Normal. OTHER FINDINGS: None. IMPRESSION: Findings in most likely represent mild asymmetric pulmonary vascular congestive changes left greater than right. There may also be small bilateral effusions left larger than right Progress - Re-Evaluation Re-evaluation Note: 12/22/17 11:00 IMPROVED COMPARED TO INITIAL. VSS NARD ON VAPOTHERM. D/W DR Ester COSTA C/F PMD AWARE OF ER FINDINGS WILL ADMIT - Data Reviewed Data Reviewed: Lab, Diagnostic imaging, EKG, Old records - Critical Care Citical Care: Excluding Proc Time Critical Care Time: 90 minutes - Continuity of Care Discussed patient case with:: Patient, Family-HIPPA compliant Medical Decision Making Medical Decision Making: Ordered EKG, blood work, and CXR. Administered Albuterol Nebulizer. EKG Results: - Afib at 81 bpm Disposition Counseled Patient/Family Regarding: Studies Performed, Diagnosis - Disposition Disposition: HOSPITALIZED Disposition Time: 11:01 Condition: STABLE - POA Present On Arrival: None - Clinical Impression Clinical Impression: Atrial fibrillation, CHF, acute - Scribe Statement The provider has reviewed the documentation as recorded by the Aric Balderas All medical record entries made by the Kaceyibcelestine were at my direction and personally dictated by me. I have reviewed the chart and agree that the record accurately reflects my personal performance of the history, physical exam, medical decision making, and the department course for this patient. I have also personally directed, reviewed, and agree with the discharge instructions and disposition. Decision To Admit - Pt Status Changed To: Hospital Disposition Of: Observation - . Bed Request Type: Telemetry Admitting Physician: Garcia Costa Patient Diagnosis: Atrial fibrillation, CHF, acute
[2017-12-22] MEDS ORDERED: Albuterol 0.083% Inhal Sol (2.5 mg/3 mL) UD ONE (09:01)
[2017-12-22] MEDS: Albuterol 0.083% Inhal Sol (2.5 mg/3 mL) UD INH SCH ×3 (09:05→09:35)
[2017-12-22 09:30] LABS: BASO # 0.1 K/uL (0.0-0.2); BASO % 0.8 % (0.0-2.0); EOS # 0.2 K/uL (0.0-0.7); EOS % 1.4 % (0.0-4.0); HEMOGLOBIN 8.8 g/dL (11.0-16.0); LYMPH # 2.2 K/uL (1.0-4.3); LYMPH % 18.2 % (20.0-40.0); MEAN CELL VOLUME 69.1 fL (81.0-99.0); MEAN CORPUSCULAR HEMOGLOBIN 21.2 pg (27.0-31.0); MEAN CORPUSCULAR HGB CONC 30.7 g/dL (33.0-37.0); MEAN PLATELET VOLUME 10.6 fL (7.2-11.7); MONO # 0.8 K/uL (0.0-0.8); MONO % 6.5 % (0.0-10.0); NEUT # 8.7 K/uL (1.8-7.0); NEUT % 73.1 % (50.0-75.0); RBC 4.13 Mil/uL (3.80-5.20); RED CELL DISTRIBUTION WIDTH 22.4 % (11.5-14.5); WHITE BLOOD COUNT 11.9 K/uL (4.8-10.8)
[2017-12-22 10:33] LABS: ALB/GLOB RATIO 1.3 (1.0-2.1); ALBUMIN 4.2 g/dL (3.5-5.0); ALT/SGPT 27 U/L (9-52); AST/SGOT 45 U/L (14-36); BLOOD UREA NITROGEN 25 mg/dL (7-17); CALCIUM 9.2 mg/dl (8.6-10.4); GFR AFRICAN-AMERICAN 52; GFR NON-AFRICAN AMERICAN 43
[2017-12-22 10:45] LABS: B-TYPE NATRIURETIC PEPTIDE 2030 pg/mL (0-900)
--- NOTE | 2017-12-22 12:40 | RAD ---
PROCEDURE: CHEST RADIOGRAPH, 1 VIEW HISTORY: SOB COMPARISON: Comparison chest dated 07/10/2016 FINDINGS: LUNGS: Findings in most likely represent mild asymmetric pulmonary vascular congestive changes left greater than right. There may also be small bilateral effusions left larger than right PLEURA: As above. No apparent pneumothorax CARDIOVASCULAR: Mild cardiomegaly OSSEOUS STRUCTURES: No significant abnormalities. VISUALIZED UPPER ABDOMEN: Normal. OTHER FINDINGS: None. IMPRESSION: Findings in most likely represent mild asymmetric pulmonary vascular congestive changes left greater than right. There may also be small bilateral effusions left larger than right
[2017-12-22] MEDS: Albuterol-Ipratrop 3 mg / 0.5 (3 ml) UD INH SCH ×2 (14:00→19:56)
--- NOTE | 2017-12-22 16:29 | CP.PCM.CON ---
History of Present Illness - History of Present Illness History of Present Illness: 87 y/o woman + SOB acute since 1 week Overall activity is mild at baseline and mostly indoors. Denies fevers, chills, CP, N/V or change in bowel/bladder habits. Cardiac: No Hx of TX or CVA Reports history of valve problems in past Review of Systems - Review of Systems All systems: reviewed and no additional remarkable complaints except Past Patient History - Infectious Disease Hx of Infectious Diseases: None - Past Medical History & Family History Past Medical History?: Yes - Past Social History Smoking Status: Never Smoked - CARDIAC Hx Atrial Fibrillation: Yes Hx Congestive Heart Failure: Yes Hx Hypercholesterolemia: Yes Hx Hypertension: Yes - PULMONARY Hx Asthma: Yes - NEUROLOGICAL Hx Neurological Disorder: Yes - HEENT Hx HEENT Problems: No - RENAL Hx Chronic Kidney Disease: No - ENDOCRINE/METABOLIC Hx Endocrine Disorders: Yes Hx Diabetes Mellitus Type 2: Yes - HEMATOLOGICAL/ONCOLOGICAL Hx Blood Disorders: No - INTEGUMENTARY Hx Dermatological Problems: No - MUSCULOSKELETAL/RHEUMATOLOGICAL Hx Falls: Yes - GASTROINTESTINAL Hx Gastrointestinal Disorders: No - GENITOURINARY/GYNECOLOGICAL Hx Genitourinary Disorders: No - PSYCHIATRIC Hx Substance Use: No - SURGICAL HISTORY Hx Coronary Stent: Yes - ANESTHESIA Hx Anesthesia: No Hx Anesthesia Reactions: No Meds Allergies/Adverse Reactions: Allergies Allergy/AdvReac Type Severity Reaction Status Date / Time diltiazem HCl [From Cardizem] Allergy RASH Verified 12/22/17 13:10 - Medications Medications: Current Medications Albuterol/Ipratropium (Duoneb 3 Mg/0.5 Mg (3 Ml) Ud) 3 ml INH RQ6 [facility] Last Admin: 12/22/17 14:00 Dose: 3 ml Amlodipine Besylate (Norvasc) 5 mg PO DAILY [facility] Aspirin (Ecotrin) 81 mg PO DAILY [facility] Furosemide (Lasix) 40 mg IVP BID [facility] Heparin Sodium (Porcine) (Heparin) 5,000 units SC Q12 [facility] Isosorbide Mononitrate (Imdur Er) 30 mg PO DAILY [facility] Losartan Potassium (Cozaar) 50 mg PO BID [facility] Metformin HCl (Glucophage) 500 mg PO BIDCC [facility] Pantoprazole Sodium (Protonix Ec Tab) 40 mg PO DAILY [facility] Pregabalin (Lyrica) 50 mg PO BID [facility] Ranolazine (Ranexa) 500 mg PO BID [facility] Physical Exam - Constitutional Appears: No Acute Distress, Chronically Ill - Head Exam Head Exam: ATRAUMATIC, NORMAL INSPECTION, NORMOCEPHALIC - Eye Exam Eye Exam: EOMI, Normal appearance, PERRL - ENT Exam ENT Exam: Mucous Membranes Moist, Normal Oropharynx - Neck Exam Neck exam: Positive for: Full Rom. Negative for: Tenderness - Respiratory Exam Respiratory Exam: Clear to Auscultation Bilateral, NORMAL BREATHING PATTERN. absent: Rhonchi, Wheezes - Cardiovascular Exam Cardiovascular Exam: Diastolic murmur, Irregular Rhythm, +S1, +S2, Systolic Murmur - GI/Abdominal Exam GI & Abdominal Exam: Normal Bowel Sounds, Soft. absent: Tenderness - Extremities Exam Extremities exam: Positive for: normal inspection. Negative for: calf tenderness, pedal edema - Neurological Exam Neurological exam: Alert, Oriented x3 - Psychiatric Exam Psychiatric exam: Normal Affect, Normal Mood - Skin Skin Exam: Normal Color, Warm Results - Vital Signs Recent Vital Signs: Last Vital Signs Temp 97.7 F 12/22/17 13:28 Pulse 89 12/22/17 13:36 Resp 18 12/22/17 13:53 BP 135/72 12/22/17 13:28 Pulse Ox 97 12/22/17 13:28 - Labs Result Diagrams: 12/22/17 09:23 12/22/17 10:15 Labs: Laboratory Results - last 24 hr 12/22/17 12/22/17 09:23 10:15 WBC 11.9 H RBC 4.13 Hgb 8.8 L Hct 28.5 L MCV 69.1 L D MCH 21.2 L MCHC 30.7 L RDW 22.4 H Plt Count 212 MPV 10.6 Neut % (Auto) 73.1 Lymph % (Auto) 18.2 L [place] % (Auto) 6.5 Eos % (Auto) 1.4 Baso % (Auto) 0.8 Neut # (Auto) 8.7 H Lymph # (Auto) 2.2 [place] # (Auto) 0.8 Eos # (Auto) 0.2 Baso # (Auto) 0.1 Sodium 145 Potassium 5.2 Chloride 106 Carbon Dioxide 27 Anion Gap 17 BUN 25 H Creatinine 1.2 Est GFR ( Amer) 52 Est GFR (Non-Af Amer) 43 Random Glucose 122 H Calcium 9.2 Total Bilirubin 0.5 AST 45 H D ALT 27 Alkaline Phosphatase 70 Troponin I < 0.0120 NT-Pro-B Natriuret Pep 2030 H Total Protein 7.5 Albumin 4.2 Globulin 3.3 Albumin/Globulin Ratio 1.3 - EKG Data EKG Interpreted by: Myself - Imaging and Cardiology Chest x-ray Status: Image reviewed by me Assessment & Plan - Assessment and Plan (Free Text) Assessment: 87 y/o PROBLEMS SOB AFIB (although 12/21/17 EKG of poor quality) CXR: Mild congestion, small effusions leukocytosis mild Anemia with low MCV PLAN - echo 05/2016: directly viewed by me: Normal EF, LVH, MAC, aortic calcification : Mild MS, Mild (V,ax 2.41 m/s) Repeat echo to eval for progression of MILD MS and Mild (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 * Rate is controlled: will add metoprolol 25 if rate control needed.
[2017-12-22] MEDS: Ranolazine 500 mg Extended Release Tablets PO SCH (17:23)
--- NOTE | 2017-12-22 19:38 | CP.PCM.HP ---
Past Patient History - Infectious Disease Hx of Infectious Diseases: None - Past Medical History & Family History Past Medical History?: Yes - Past Social History Smoking Status: Never Smoked - CARDIAC Hx Atrial Fibrillation: Yes Hx Congestive Heart Failure: Yes Hx Hypercholesterolemia: Yes Hx Hypertension: Yes - PULMONARY Hx Asthma: Yes - NEUROLOGICAL Hx Neurological Disorder: Yes - HEENT Hx HEENT Problems: No - RENAL Hx Chronic Kidney Disease: No - ENDOCRINE/METABOLIC Hx Endocrine Disorders: Yes Hx Diabetes Mellitus Type 2: Yes - HEMATOLOGICAL/ONCOLOGICAL Hx Blood Disorders: No - INTEGUMENTARY Hx Dermatological Problems: No - MUSCULOSKELETAL/RHEUMATOLOGICAL Hx Falls: Yes - GASTROINTESTINAL Hx Gastrointestinal Disorders: No - GENITOURINARY/GYNECOLOGICAL Hx Genitourinary Disorders: No - PSYCHIATRIC Hx Substance Use: No - SURGICAL HISTORY Hx Coronary Stent: Yes - ANESTHESIA Hx Anesthesia: No Hx Anesthesia Reactions: No Meds Allergies/Adverse Reactions: Allergies Allergy/AdvReac Type Severity Reaction Status Date / Time diltiazem HCl [From Cardizem] Allergy RASH Verified 12/22/17 13:10 Physical Exam - Constitutional Appears: Well - Head Exam Head Exam: ATRAUMATIC, NORMAL INSPECTION, NORMOCEPHALIC - Eye Exam Eye Exam: EOMI, Normal appearance, PERRL Pupil Exam: NORMAL ACCOMODATION, PERRL - ENT Exam ENT Exam: Mucous Membranes Moist, Normal Exam - Neck Exam Neck exam: Positive for: Normal Inspection - Respiratory Exam Respiratory Exam: Decreased Breath Sounds - Cardiovascular Exam Cardiovascular Exam: REGULAR RHYTHM, +S1, +S2 - GI/Abdominal Exam GI & Abdominal Exam: Diminished Bowel Sounds, Soft - Rectal Exam Rectal Exam: Deferred Results - Vital Signs Recent Vital Signs: Last Vital Signs Temp 97.9 F 12/22/17 15:00 Pulse 84 12/22/17 15:00 Resp 20 12/22/17 15:00 BP 135/69 12/22/17 17:23 Pulse Ox 100 12/22/17 15:00 - Labs Result Diagrams: 12/22/17 09:23 12/22/17 10:15 Labs: Laboratory Results - last 24 hr 12/22/17 12/22/17 12/22/17 09:23 10:15 16:32 WBC 11.9 H RBC 4.13 Hgb 8.8 L Hct 28.5 L MCV 69.1 L D MCH 21.2 L MCHC 30.7 L RDW 22.4 H Plt Count 212 MPV 10.6 Neut % (Auto) 73.1 Lymph % (Auto) 18.2 L [place] % (Auto) 6.5 Eos % (Auto) 1.4 Baso % (Auto) 0.8 Neut # (Auto) 8.7 H Lymph # (Auto) 2.2 [place] # (Auto) 0.8 Eos # (Auto) 0.2 Baso # (Auto) 0.1 Sodium 145 Potassium 5.2 Chloride 106 Carbon Dioxide 27 Anion Gap 17 BUN 25 H Creatinine 1.2 Est GFR ( Amer) 52 Est GFR (Non-Af Amer) 43 POC Glucose (mg/dL) 168 H Random Glucose 122 H Calcium 9.2 Total Bilirubin 0.5 AST 45 H D ALT 27 Alkaline Phosphatase 70 Troponin I < 0.0120 NT-Pro-B Natriuret Pep 2030 H Total Protein 7.5 Albumin 4.2 Globulin 3.3 Albumin/Globulin Ratio 1.3
[2017-12-23] MEDS: Albuterol-Ipratrop 3 mg / 0.5 (3 ml) UD INH SCH ×4 (01:03→19:36)
[2017-12-23 07:53] LABS: BASO # 0.1 K/uL (0.0-0.2); BASO % 0.7 % (0.0-2.0); EOS # 0.2 K/uL (0.0-0.7); EOS % 1.8 % (0.0-4.0); HEMOGLOBIN 8.6 g/dL (11.0-16.0); LYMPH # 2.9 K/uL (1.0-4.3); MEAN CELL VOLUME 68.9 fL (81.0-99.0); MEAN CORPUSCULAR HEMOGLOBIN 21.7 pg (27.0-31.0); MEAN CORPUSCULAR HGB CONC 31.5 g/dL (33.0-37.0); MEAN PLATELET VOLUME 11.1 fL (7.2-11.7); MONO # 0.7 K/uL (0.0-0.8); MONO % 7.6 % (0.0-10.0); NEUT # 5.4 K/uL (1.8-7.0); NEUT % 58.9 % (50.0-75.0); NRBC % 0.1 % (0.0-2.0); RBC 3.97 Mil/uL (3.80-5.20); RED CELL DISTRIBUTION WIDTH 21.6 % (11.5-14.5); WHITE BLOOD COUNT 9.2 K/uL (4.8-10.8)
[2017-12-23 08:00] LABS: CALCIUM 9.3 mg/dl (8.6-10.4)
[2017-12-23] MEDS: Pantoprazole 40 mg EC Tab PO SCH (09:40)
[2017-12-23] MEDS: Ranolazine 500 mg Extended Release Tablets PO SCH ×2 (09:40→17:46)
--- NOTE | 2017-12-23 16:36 | CP.PCM.PN ---
Subjective - Date & Time of Evaluation Date of Evaluation: 12/23/17 Time of Evaluation: 11:00 - Subjective Subjective: clinically same Objective - Vital Signs/Intake and Output Vital Signs (last 24 hours): Temp Pulse Resp BP Pulse Ox 98.4 F 120 H 18 113/53 L 98 12/23/17 07:50 12/23/17 14:17 12/23/17 07:50 12/23/17 09:41 12/23/17 13:17 Intake and Output: 12/23/17 12/23/17 06:59 18:59 Intake Total 250 480 Output Total 200 Balance 250 280 - Medications Medications: Current Medications Albuterol/Ipratropium (Duoneb 3 Mg/0.5 Mg (3 Ml) Ud) 3 ml INH RQ6 [facility] Last Admin: 12/23/17 13:31 Dose: 3 ml Amlodipine Besylate (Norvasc) 5 mg PO DAILY [facility] Last Admin: 12/23/17 09:40 Dose: 5 mg Aspirin (Ecotrin) 81 mg PO DAILY [facility] Last Admin: 12/23/17 09:43 Dose: 81 mg Furosemide (Lasix) 40 mg IVP BID [facility] Last Admin: 12/23/17 09:41 Dose: 40 mg Heparin Sodium (Porcine) (Heparin) 5,000 units SC Q12 [facility] Last Admin: 12/23/17 09:41 Dose: 5,000 units Isosorbide Mononitrate (Imdur Er) 30 mg PO DAILY [facility] Last Admin: 12/23/17 09:40 Dose: 30 mg Losartan Potassium (Cozaar) 50 mg PO BID [facility] Last Admin: 12/23/17 09:40 Dose: 50 mg [facility] Last Admin: 12/23/17 09:40 Dose: 500 mg Metoprolol Tartrate (Lopressor) 25 mg PO DAILY [facility] Last Admin: 12/23/17 09:41 Dose: 25 mg Pantoprazole Sodium (Protonix Ec Tab) 40 mg PO DAILY [facility] Last Admin: 12/23/17 09:40 Dose: 40 mg Pregabalin (Lyrica) 50 mg PO BID [facility] Last Admin: 12/23/17 09:41 Dose: 50 mg Ranolazine (Ranexa) 500 mg PO BID [facility] Last Admin: 12/23/17 09:40 Dose: 500 mg - Labs Labs: 12/23/17 07:39 12/23/17 07:39 - Constitutional Appears: Well - Head Exam Head Exam: ATRAUMATIC, NORMAL INSPECTION, NORMOCEPHALIC - Eye Exam Eye Exam: EOMI, Normal appearance, PERRL Pupil Exam: NORMAL ACCOMODATION, PERRL - ENT Exam ENT Exam: Mucous Membranes Moist, Normal Exam - Neck Exam Neck Exam: Full ROM, Normal Inspection. absent: Lymphadenopathy - Respiratory Exam Respiratory Exam: Decreased Breath Sounds - Cardiovascular Exam Cardiovascular Exam: REGULAR RHYTHM, +S1, +S2 - GI/Abdominal Exam GI & Abdominal Exam: Soft, Diminished Bowel Sounds - Rectal Exam Rectal Exam: Deferred
[2017-12-24] MEDS: Albuterol-Ipratrop 3 mg / 0.5 (3 ml) UD INH SCH ×4 (06:41→19:11)
[2017-12-24 07:32] LABS: BASO # 0.1 K/uL (0.0-0.2); BASO % 0.8 % (0.0-2.0); EOS # 0.3 K/uL (0.0-0.7); EOS % 2.7 % (0.0-4.0); HEMOGLOBIN 8.7 g/dL (11.0-16.0); LYMPH # 3.1 K/uL (1.0-4.3); LYMPH % 31.5 % (20.0-40.0); MEAN CELL VOLUME 68.8 fL (81.0-99.0); MEAN CORPUSCULAR HEMOGLOBIN 21.7 pg (27.0-31.0); MEAN CORPUSCULAR HGB CONC 31.6 g/dL (33.0-37.0); MEAN PLATELET VOLUME 11.5 fL (7.2-11.7); MONO # 0.8 K/uL (0.0-0.8); MONO % 7.8 % (0.0-10.0); NEUT # 5.7 K/uL (1.8-7.0); NEUT % 57.2 % (50.0-75.0); RBC 3.99 Mil/uL (3.80-5.20); RED CELL DISTRIBUTION WIDTH 21.8 % (11.5-14.5); WHITE BLOOD COUNT 9.9 K/uL (4.8-10.8)
[2017-12-24 08:15] LABS: CALCIUM 9.7 mg/dl (8.6-10.4)
[2017-12-24] MEDS: Ranolazine 500 mg Extended Release Tablets PO SCH ×2 (10:10→18:18)
--- NOTE | 2017-12-24 12:14 | CP.PCM.PN ---
Subjective - Date & Time of Evaluation Date of Evaluation: 12/24/17 Time of Evaluation: 08:10 - Subjective Subjective: PGY2 Resident - Medicine Progress Note Patient seen and examined at bedside. No acute distress. No overnight events. Patient reports mild lethargy. Still with mild SOB, although she admits she is breathing better than when first admitted. Last BM yesterday. Denies f/c, chest pain, overt SOB, palpitations, n/v, or d/c. 12-point review of systems is otherwise negative without any additional acute complaints. Objective - Vital Signs/Intake and Output Vital Signs (last 24 hours): Temp Pulse Resp BP Pulse Ox 97.5 F L 73 18 138/72 100 12/24/17 07:15 12/24/17 09:11 12/24/17 07:15 12/24/17 10:10 12/24/17 09:11 Intake and Output: 12/24/17 12/24/17 06:59 18:59 Intake Total 120 Output Total 500 Balance -380 - Medications Medications: Current Medications Albuterol/Ipratropium (Duoneb 3 Mg/0.5 Mg (3 Ml) Ud) 3 ml INH RQ6 [facility] Last Admin: 12/24/17 07:35 Dose: 3 ml Amlodipine Besylate (Norvasc) 5 mg PO DAILY [facility] Last Admin: 12/24/17 10:10 Dose: 5 mg Aspirin (Ecotrin) 81 mg PO DAILY [facility] Last Admin: 12/24/17 10:10 Dose: 81 mg Furosemide (Lasix) 40 mg IVP BID [facility] Last Admin: 12/24/17 10:10 Dose: 40 mg Heparin Sodium (Porcine) (Heparin) 5,000 units SC Q12 [facility] Last Admin: 12/24/17 10:10 Dose: 5,000 units Isosorbide Mononitrate (Imdur Er) 30 mg PO DAILY [facility] Last Admin: 12/24/17 10:11 Dose: 30 mg Losartan Potassium (Cozaar) 50 mg PO BID [facility] Last Admin: 12/24/17 10:10 Dose: 50 mg Metformin HCl (Glucophage) 500 mg PO BIDCC [facility] Last Admin: 12/24/17 08:15 Dose: 500 mg Metoprolol Tartrate (Lopressor) 25 mg PO DAILY [facility] Last Admin: 12/24/17 10:10 Dose: 25 mg Pantoprazole Sodium (Protonix Ec Tab) 40 mg PO DAILY [facility] Last Admin: 12/23/17 09:40 Dose: 40 mg Pregabalin (Lyrica) 50 mg PO BID [facility] Last Admin: 12/24/17 10:10 Dose: 50 mg Ranolazine (Ranexa) 500 mg PO BID [facility] Last Admin: 12/24/17 10:10 Dose: 500 mg - Labs Labs: 12/24/17 06:58 12/24/17 06:58 - Additional Findings Additional findings: - Constitutional Appears: No Acute Distress - Head Exam Head Exam: ATRAUMATIC, NORMAL INSPECTION, NORMOCEPHALIC - Eye Exam Eye Exam: EOMI, Normal appearance, PERRL - ENT Exam ENT Exam: Mucous Membranes Moist, Normal Oropharynx - Neck Exam Neck Exam: Full ROM. absent: Tenderness - Respiratory Exam Respiratory Exam: Clear to Ausculation Bilateral, NORMAL BREATHING PATTERN. absent: Rhonchi, Wheezes - Cardiovascular Exam Cardiovascular Exam: Irregular Rhythm, +S1, +S2, Murmur (SM 2/6 RUSB normal A2) - GI/Abdominal Exam GI & Abdominal Exam: Normal Bowel Sounds. absent: Guarding, Organomegaly, Rebound - Extremities Exam Extremities Exam: Normal Inspection. absent: Calf Tenderness, Pedal Edema - Neurological Exam Neurological Exam: Alert, Awake, Oriented x3 - Psychiatric Exam Psychiatric exam: Normal Affect, Normal Mood - Skin Skin Exam: Normal Color, Warm Assessment and Plan - Assessment and Plan (Free Text) Assessment: CHF Exacerbation Cardio consult, Dr. 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 ------> There is no surgical indication at this point, ideally coumadin given rheumatic MS but inability to monitor INR and concerns can use eliquis 2.5 BID for CVA risk reduction ( [id number] score >5) Lasix) 40 mg IVP BID [facility] Ranexa) 500 mg PO BID [facility] Imdur Er) 30 mg PO DAILY [facility] Atrial Fibrillation 12/24: start eliquis 2.5mg PO BID TELE suggest AFIB with controlled rate on current meds. Lopressor) 25 mg PO DAILY [facility] Hypertension Norvasc) 5 mg PO DAILY [facility] Cozaar) 50 mg PO BID [facility] Lopressor) 25 mg PO DAILY [facility] Dyspnea likely 2/2 CHF exacerbation Duoneb 3 Mg/0.5 Mg (3 Ml) Ud) 3 ml INH RQ6 [facility] Diabetes Glucophage) 500 mg PO BIDCC [facility] Anemia 12/24: f/u FE, TIBC, %Sat, Ferritin anemia of chronic dz, low MCV Stable, Hgb 8.7 Patient reports no GI/ bleeding and MCV is low: iron fortified diet. Prophylaxis Heparin) 5,000 units SC Q12 [facility] Protonix Ec Tab) 40 mg PO DAILY [facility] Lyrica) 50 mg PO BID [facility] Disposition: possible DC tomorrow pending echo results and BW. Case discussed with attending. All medical management as per Dr. Ester Menendez.
[2017-12-24] MEDS: Pantoprazole 40 mg EC Tab PO SCH (12:18)
--- NOTE | 2017-12-24 12:23 | CP.PCM.PN ---
Subjective - Date & Time of Evaluation Date of Evaluation: 12/24/17 Time of Evaluation: 12:32 - Subjective Subjective: Patient comfortable No cardiopulmonary distress Denies any CP, SOB, fevers, chills, cough Eating by self. No edema patient denies any history of prior /GI bleeding Objective - Vital Signs/Intake and Output Vital Signs (last 24 hours): Temp Pulse Resp BP Pulse Ox 97.5 F L 73 18 138/72 100 12/24/17 07:15 12/24/17 09:11 12/24/17 07:15 12/24/17 10:10 12/24/17 09:11 Intake and Output: 12/24/17 12/24/17 06:59 18:59 Intake Total 120 Output Total 500 Balance -380 - Medications Medications: Current Medications Albuterol/Ipratropium (Duoneb 3 Mg/0.5 Mg (3 Ml) Ud) 3 ml INH RQ6 [facility] Last Admin: 12/24/17 07:35 Dose: 3 ml Amlodipine Besylate (Norvasc) 5 mg PO DAILY [facility] Last Admin: 12/24/17 10:10 Dose: 5 mg Aspirin (Ecotrin) 81 mg PO DAILY [facility] Last Admin: 12/24/17 10:10 Dose: 81 mg Furosemide (Lasix) 40 mg IVP BID [facility] Last Admin: 12/24/17 10:10 Dose: 40 mg Heparin Sodium (Porcine) (Heparin) 5,000 units SC Q12 [facility] Last Admin: 12/24/17 10:10 Dose: 5,000 units Isosorbide Mononitrate (Imdur Er) 30 mg PO DAILY [facility] Last Admin: 12/24/17 10:11 Dose: 30 mg Losartan Potassium (Cozaar) 50 mg PO BID [facility] Last Admin: 12/24/17 10:10 Dose: 50 mg Metformin HCl (Glucophage) 500 mg PO BIDCC [facility] Last Admin: 12/24/17 08:15 Dose: 500 mg Metoprolol Tartrate (Lopressor) 25 mg PO DAILY [facility] Last Admin: 12/24/17 10:10 Dose: 25 mg Pantoprazole Sodium (Protonix Ec Tab) 40 mg PO DAILY [facility] Last Admin: 12/24/17 12:18 Dose: 40 mg Pregabalin (Lyrica) 50 mg PO BID [facility] Last Admin: 12/24/17 10:10 Dose: 50 mg Ranolazine (Ranexa) 500 mg PO BID [facility] Last Admin: 12/24/17 10:10 Dose: 500 mg - Labs Labs: 12/24/17 06:58 12/24/17 06:58 - Constitutional Appears: No Acute Distress - Head Exam Head Exam: ATRAUMATIC, NORMAL INSPECTION, NORMOCEPHALIC - Eye Exam Eye Exam: EOMI, Normal appearance, PERRL - ENT Exam ENT Exam: Mucous Membranes Moist, Normal Oropharynx - Neck Exam Neck Exam: Full ROM. absent: Tenderness - Respiratory Exam Respiratory Exam: Clear to Ausculation Bilateral, NORMAL BREATHING PATTERN. absent: Rhonchi, Wheezes - Cardiovascular Exam Cardiovascular Exam: Irregular Rhythm, +S1, +S2, Murmur (SM 2/6 RUSB normal A2) - GI/Abdominal Exam GI & Abdominal Exam: Normal Bowel Sounds. absent: Guarding, Organomegaly, Rebound - Extremities Exam Extremities Exam: Normal Inspection. absent: Calf Tenderness, Pedal Edema - Neurological Exam Neurological Exam: Alert, Awake, Oriented x3 Neuro motor strength exam: Left Upper Extremity: 5, Right Upper Extremity: 5, Left Lower Extremity: 5, Right Lower Extremity: 5 - Psychiatric Exam Psychiatric exam: Normal Affect, Normal Mood - Skin Skin Exam: Normal Color, Warm Assessment and Plan - Assessment and Plan (Free Text) Assessment: 87 y/o PROBLEMS SOB AFIB (although 12/21/17 EKG of poor quality) CXR: Mild congestion, small effusions leukocytosis mild Anemia with low MCV PLAN - echo 05/2016: directly viewed by me: Normal EF, LVH, MAC, aortic calcification : Mild MS, Mild (V,ax 2.41 m/s) Repeat echo 12/22/17 continues to show 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 ------> There is no surgical indication at this point, ideally coumadin given rheumatic MS but inability to monitor INR and concerns can use eliquis 2.5 BID for CVA risk reduction ( [id number] score >5) w/u anemia as cause of SOB---> most likely JEROME: Patient reports no GI/ bleeding and MCV is low: iron fortified diet. TELE suggest AFIB with controlled rate on current meds. * Rate is controlled: D/C planning, PT
--- NOTE | 2017-12-24 12:26 | CARD ---
APPROVED REPORT EKG Measurement Heart [id number] <Conclusion> Atrial fibrillation with premature ventricular or aberrantly conducted complexes Low voltage QRS Septal infarct, age undetermined Possible Lateral infarct, age undetermined Abnormal ECG
--- NOTE | 2017-12-24 17:36 | CARD ---
APPROVED REPORT EXAM: Two-dimensional and M-mode echocardiogram with Doppler and color Doppler. Other Information Quality : GoodRhythm : INDICATION CVA/TIA Atrial Fibrillation HX OF MS, RISK FACTORS Hypertension Hyperlipidemia Diabetes 2D DIMENSIONS IVSd1.1 (0.7-1.1cm)LVDd3.0 (3.9-5.9cm) LVOT Diameter2.0 (1.8-2.4cm)PWd1.1 (0.7-1.1cm) LVDs2.1 (2.5-4.0cm)FS (%) 29.3 % LVEF (%)57.7 (>50%) M-Mode DIMENSIONS Left Atrium (MM)5.53 (2.5-4.0cm)Aortic Root2.89 (2.2-3.7cm) Aortic Cusp Exc.1.78 (1.5-2.0cm) Aortic Valve AoV Peak Tktqyltv958.1cm/sAoV VTI43.1cmAO Peak GR.22mmHg LVOT Peak Cnqqumzs992.9cm/sLVOT VTI22.19cmAO Mean GR.12mmHg ALEKSANDAR (VMAX)1.27cp6TPC (VTI)1.58cm2 Mitral Valve MV E Potuousc251.6cm/sMV E Peak Gr.18mmHgMV A Cucwsvzs21.3cm/s MV E Mean Gr.6mmHgMV DLE48beJ/A ratio3.7 MVA (PHT)2.22cm2 TDI E/Lateral E'0.0E/Medial E'0.0 Tricuspid Valve TR Peak Qaecmvqn626ih/sTR Peak Gr.40mmHg LEFT VENTRICLE The left ventricle is normal size. There is normal left ventricular wall thickness. The Ejection Fraction is 65-70%. There is normal LV segmental wall motion. Transmitral Doppler flow pattern is Grade III-reversible restrictive diastolic dysfunction. The left atrial pressure is severely elevated. moderately elevated la volume index. RIGHT VENTRICLE The right ventricle is normal size. The right ventricular systolic function is normal. ATRIA The left atrium is severely dilated. The right atrium size is normal. The interatrial septum is intact with no evidence for an atrial septal defect. AORTIC VALVE The aortic valve is trileaflet. The aortic valve is moderately sclerotic. There is mild aortic regurgitation. MITRAL VALVE The mitral valve leaflets are thickened and calcified. anterior mitral leaflet appears partialy flail. Mitral regurgitation is atleast moderate. TRICUSPID VALVE The tricuspid valve is normal in structure. There is moderate tricuspid regurgitation. Right ventricular systolic pressure is estimated at 50 mmHg. There is moderate pulmonary hypertension. PULMONIC VALVE The pulmonary valve is normal in structure. There is trace pulmonic valvular regurgitation. GREAT VESSELS The aortic root is normal size. The aortic root displays moderate sclerocalcific changes of the aortic root. The IVC is normal in size and collapses >50% with inspiration. PERICARDIAL EFFUSION There is no pericardial effusion. <Conclusion> The left ventricle is normal size. There is normal left ventricular wall thickness. The Ejection Fraction is 65-70%. Transmitral Doppler flow pattern is Grade III-reversible restrictive diastolic dysfunction. The left atrial pressure is severely elevated. moderately elevated la volume index. The left atrium is severely dilated. The aortic valve is trileaflet. The aortic valve is moderately sclerotic. There is mild aortic regurgitation. The mitral valve leaflets are thickened and calcified. anterior mitral leaflet appears partialy flail. Mitral regurgitation is atleast moderate. There is moderate tricuspid regurgitation. Right ventricular systolic pressure is estimated at 50 mmHg. There is moderate pulmonary hypertension. The aortic root is normal size. The aortic root displays moderate sclerocalcific changes of the aortic root. suggest [place].
--- NOTE | 2017-12-24 21:38 | CP.PCM.PN ---
Subjective - Date & Time of Evaluation Date of Evaluation: 12/24/17 Time of Evaluation: 11:40 - Subjective Subjective: clinically same Objective - Vital Signs/Intake and Output Vital Signs (last 24 hours): Temp Pulse Resp BP Pulse Ox 97.5 F L 77 20 115/65 100 12/24/17 15:20 12/24/17 15:20 12/24/17 15:20 12/24/17 18:21 12/24/17 15:20 Intake and Output: 12/24/17 12/25/17 18:59 06:59 Intake Total 600 Balance 600 - Medications Medications: Current Medications Albuterol/Ipratropium (Duoneb 3 Mg/0.5 Mg (3 Ml) Ud) 3 ml INH RQ6 [facility] Last Admin: 12/24/17 19:11 Dose: 3 ml Amlodipine Besylate (Norvasc) 5 mg PO DAILY [facility] Last Admin: 12/24/17 10:10 Dose: 5 mg Apixaban (Eliquis) 2.5 mg PO BID [facility] Last Admin: 12/24/17 18:18 Dose: 2.5 mg Aspirin (Ecotrin) 81 mg PO DAILY [facility] Last Admin: 12/24/17 10:10 Dose: 81 mg Furosemide (Lasix) 40 mg IVP BID [facility] Last Admin: 12/24/17 18:21 Dose: 40 mg Isosorbide Mononitrate (Imdur Er) 30 mg PO DAILY [facility] Last Admin: 12/24/17 10:11 Dose: 30 mg Losartan Potassium (Cozaar) 50 mg PO BID [facility] Last Admin: 12/24/17 10:10 Dose: [facility] mg [facility] Admin: 12/24/17 18:00 Dose: 500 mg Metoprolol Tartrate (Lopressor) 25 mg PO DAILY [facility] Last Admin: 12/24/17 10:10 Dose: 25 mg Pantoprazole Sodium (Protonix Ec Tab) 40 mg PO DAILY [facility] Last Admin: 12/24/17 12:18 Dose: 40 mg Pregabalin (Lyrica) 50 mg PO BID [facility] Last Admin: 12/24/17 18:18 Dose: 50 mg Ranolazine (Ranexa) 500 mg PO BID [facility] Last Admin: 12/24/17 18:18 Dose: 500 mg - Labs Labs: 12/24/17 06:58 12/24/17 06:58 - Constitutional Appears: Well - Head Exam Head Exam: ATRAUMATIC, NORMAL INSPECTION, NORMOCEPHALIC - Eye Exam Eye Exam: EOMI, Normal appearance, PERRL Pupil Exam: NORMAL ACCOMODATION, PERRL - ENT Exam ENT Exam: Mucous Membranes Moist, Normal Exam - Neck Exam Neck Exam: Full ROM, Normal Inspection. absent: Lymphadenopathy - Respiratory Exam Respiratory Exam: Decreased Breath Sounds - Cardiovascular Exam Cardiovascular Exam: REGULAR RHYTHM, +S1, +S2 - GI/Abdominal Exam GI & Abdominal Exam: Soft, Diminished Bowel Sounds - Rectal Exam Rectal Exam: Deferred
[2017-12-25] MEDS: Albuterol-Ipratrop 3 mg / 0.5 (3 ml) UD INH SCH ×3 (01:12→13:14)
[2017-12-25 07:19] LABS: BASO # 0.1 K/uL (0.0-0.2); BASO % 0.5 % (0.0-2.0); EOS # 0.3 K/uL (0.0-0.7); EOS % 2.9 % (0.0-4.0); HEMOGLOBIN 8.6 g/dL (11.0-16.0); LYMPH # 2.5 K/uL (1.0-4.3); MEAN CELL VOLUME 68.9 fL (81.0-99.0); MEAN CORPUSCULAR HEMOGLOBIN 21.5 pg (27.0-31.0); MEAN CORPUSCULAR HGB CONC 31.2 g/dL (33.0-37.0); MEAN PLATELET VOLUME 10.3 fL (7.2-11.7); MONO # 0.8 K/uL (0.0-0.8); MONO % 7.7 % (0.0-10.0); NEUT # 6.5 K/uL (1.8-7.0); NEUT % 63.9 % (50.0-75.0); RBC 3.98 Mil/uL (3.80-5.20); RED CELL DISTRIBUTION WIDTH 21.9 % (11.5-14.5); WHITE BLOOD COUNT 10.2 K/uL (4.8-10.8)
[2017-12-25 07:33] LABS: IRON 20 ug/dL (37-170)
[2017-12-25 07:35] LABS: ALB/GLOB RATIO 1.3 (1.0-2.1); ALBUMIN 3.9 g/dL (3.5-5.0); ALT/SGPT < 6 U/L (9-52); AST/SGOT 21 U/L (14-36); BLOOD UREA NITROGEN 27 mg/dL (7-17); CALCIUM 9.2 mg/dl (8.6-10.4); GFR AFRICAN-AMERICAN 52; GFR NON-AFRICAN AMERICAN 43
[2017-12-25 07:44] LABS: % IRON SATURATION 5 (20-55); TOTAL IRON BINDING CAPACITY 391 ug/dL (250-450)
--- NOTE | 2017-12-25 07:46 | CP.PCM.PN ---
Subjective - Date & Time of Evaluation Date of Evaluation: 12/25/17 Time of Evaluation: 08:30 - Subjective Subjective: PGY2 Resident - Medicine Progress Note Patient seen and examined at bedside. No acute distress. No overnight events. Starting Iron and Vit C 2/2 iron deficient anemia. Patient reports she is feeling better today with improvement in breathing. Last BM 2 days ago, will give laxative. Denies f/c, chest pain, overt SOB, palpitations, n/v, or d/c. 12- point review of systems is otherwise negative without any additional acute complaints. ----- Patient is stable for discharge per Dr. Ester Menendez. Patient should resume all medications as outlined in this document. Additionally, patient should take the new medications listed below (scripts provided). 1. Please make an appointment and follow up with your Primary Doctor, Dr. Ester Menendez within one week of discharge. 2. Please follow up with your cotton stripper Dr. Martinez within one week of discharge. 3. Due to low iron in your blood, please take your prescribed Iron with Vitamin C as this help you to better absorb the iron. Iron may cause constipation. If this occurs, please take an OTC laxative such as Colace (you can buy this from any pharmacy). Patient should return to ED immediately if symptoms return or worsen. Instructions discussed with patient who understood and agreed. Newly prescribed medications: Elequis 2.5mg PO BID #60 Lasix 40mg Oral Once a day #30 (used to be twice a day) Metoprolol 25mg PO daily #30 Feosol 325mg PO daily #30 Vitamin C 500mg PO daily #30 Objective - Vital Signs/Intake and Output Vital Signs (last 24 hours): Temp Pulse Resp BP Pulse Ox 97.6 F 101 H 20 131/76 97 12/24/17 23:35 12/24/17 23:35 12/24/17 23:35 12/24/17 23:35 12/24/17 23:35 Intake and Output: 12/25/17 12/25/17 06:59 18:59 Intake Total 480 Output Total 600 Balance -120 - Medications Medications: Current Medications Albuterol/Ipratropium (Duoneb 3 Mg/0.5 Mg (3 Ml) Ud) 3 ml INH RQ6 [facility] Last Admin: 12/25/17 07:35 Dose: 3 ml Amlodipine Besylate (Norvasc) 5 mg PO DAILY [facility] Last Admin: 12/24/17 10:10 Dose: 5 mg Apixaban (Eliquis) 2.5 mg PO BID [facility] Last Admin: 12/24/17 18:18 Dose: 2.5 mg Aspirin (Ecotrin) 81 mg PO DAILY [facility] Last Admin: 12/24/17 10:10 Dose: 81 mg Furosemide (Lasix) 40 mg IVP BID [facility] Last Admin: 12/24/17 18:21 Dose: 40 mg Isosorbide Mononitrate (Imdur Er) 30 mg PO DAILY [facility] Last Admin: 12/24/17 10:11 Dose: 30 mg Losartan Potassium (Cozaar) 50 mg PO BID [facility] Last Admin: 12/24/17 22:15 Dose: 50 mg [facility] Last Admin: 12/24/17 18:00 Dose: 500 mg Metoprolol Tartrate (Lopressor) 25 mg PO DAILY [facility] Last Admin: 12/24/17 10:10 Dose: 25 mg Pantoprazole Sodium (Protonix Ec Tab) 40 mg PO DAILY [facility] Last Admin: 12/24/17 12:18 Dose: 40 mg Pregabalin (Lyrica) 50 mg PO BID [facility] Last Admin: 12/24/17 18:18 Dose: 50 mg Ranolazine (Ranexa) 500 mg PO BID [facility] Last Admin: 12/24/17 18:18 Dose: 500 mg - Labs Labs: 12/25/17 07:12 12/25/17 07:12 - Additional Findings Additional findings: - Constitutional Appears: No Acute Distress - Head Exam Head Exam: ATRAUMATIC, NORMAL INSPECTION, NORMOCEPHALIC - Eye Exam Eye Exam: EOMI, Normal appearance, PERRL - ENT Exam ENT Exam: Mucous Membranes Moist, Normal Oropharynx - Neck Exam Neck Exam: Full ROM. absent: Tenderness - Respiratory Exam Respiratory Exam: Clear to Ausculation Bilateral, NORMAL BREATHING PATTERN. absent: Rhonchi, Wheezes - Cardiovascular Exam Cardiovascular Exam: Regular Rhythm, +S1, +S2, Murmur - GI/Abdominal Exam GI & Abdominal Exam: Normal Bowel Sounds. absent: Guarding, Organomegaly, Rebound - Extremities Exam Extremities Exam: Normal Inspection. absent: Calf Tenderness, Pedal Edema - Neurological Exam Neurological Exam: Alert, Awake, Oriented x3 - Psychiatric Exam Psychiatric exam: Normal Affect, Normal Mood - Skin Skin Exam: Normal Color, Warm Assessment and Plan - Assessment and Plan (Free Text) Assessment: CHF Exacerbation Cardio consult, Dr. 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 ------> There is no surgical indication at this point, ideally coumadin given rheumatic MS but inability to monitor INR and concerns can use eliquis 2.5 BID for CVA risk reduction ( [id number] score >5) Lasix) 40 mg IVP BID [facility] Ranexa) 500 mg PO BID [facility] Imdur Er) 30 mg PO DAILY [facility] Echo 12/22/17 official read - EF 65-70%, L atrium severely dilated, mild aortic regurg, mod mitral regurg, moderate pulm HTN, see full report. Atrial Fibrillation 12/25: continue eliquis 12/24: start eliquis 2.5mg PO BID TELE suggest AFIB with controlled rate on current meds. Lopressor) 25 mg PO DAILY [facility] Hypertension Norvasc) 5 mg PO DAILY [facility] Cozaar) 50 mg PO BID [facility] Lopressor) 25 mg PO DAILY [facility] Dyspnea likely 2/2 CHF exacerbation Duoneb 3 Mg/0.5 Mg (3 Ml) Ud) 3 ml INH RQ6 [facility] Iron Deficient Anemia 12/25: Fe 20L, %Sat 5L - start feosol and vit C. 12/24: f/u FE, TIBC, %Sat, Ferritin anemia of chronic dz, low MCV Stable, Hgb 8.7 Patient reports no GI/ bleeding and MCV is low: iron fortified diet. Prophylaxis Heparin) 5,000 units SC Q12 [facility] Protonix Ec Tab) 40 mg PO DAILY [facility] Lyrica) 50 mg PO BID [facility] Disposition: possible DC tomorrow pending echo results and BW. Case discussed with attending. All medical management as per Dr. Ester Menendez.
[2017-12-25 08:15] LABS: FERRITIN 6.8 ng/mL
[2017-12-25] MEDS: Pantoprazole 40 mg EC Tab PO SCH (09:37)
[2017-12-25] MEDS: Ranolazine 500 mg Extended Release Tablets PO SCH (09:37)
[2017-12-25] MEDS ORDERED: POLYETHYLENE GLYCOL 3350 17 GM/Dose PACKET PO ONE (11:08)
--- NOTE | 2017-12-25 13:26 | CP.PCM.PN ---
Subjective - Date & Time of Evaluation Date of Evaluation: 12/25/17 Time of Evaluation: 10:20 - Subjective Subjective: clinically same Objective - Vital Signs/Intake and Output Vital Signs (last 24 hours): Temp Pulse Resp BP Pulse Ox 97.8 F 88 18 122/75 96 12/25/17 07:15 12/25/17 09:35 12/25/17 09:35 12/25/17 09:37 12/25/17 07:15 Intake and Output: 12/25/17 12/25/17 06:59 18:59 Intake Total 480 Output Total 600 Balance -120 - Medications Medications: Current Medications Albuterol/Ipratropium (Duoneb 3 Mg/0.5 Mg (3 Ml) Ud) 3 ml INH RQ6 [facility] Last Admin: 12/25/17 13:14 Dose: 3 ml Amlodipine Besylate (Norvasc) 5 mg PO DAILY [facility] Last Admin: 12/25/17 09:37 Dose: 5 mg Apixaban (Eliquis) 2.5 mg PO BID [facility] Last Admin: 12/25/17 10:02 Dose: 2.5 mg Ascorbic Acid (Vitamin C 500 Mg Tab) 500 mg PO DAILY [facility] Aspirin (Ecotrin) 81 mg PO DAILY [facility] Last Admin: 12/25/17 09:37 Dose: 81 mg Ferrous Sulfate (Feosol) 325 mg PO DAILY [facility] Furosemide (Lasix) 40 mg IVP BID [facility] Last Admin: 12/25/17 09:37 Dose: 40 mg Isosorbide Mononitrate (Imdur Er) 30 mg PO DAILY [facility] Last Admin: 12/25/17 10:02 Dose: 30 mg Losartan Potassium (Cozaar) 50 mg PO BID [facility] Last Admin: 12/25/17 09:37 Dose: 50 mg Metformin HCl (Glucophage) 500 mg PO BIDCC [facility] Last Admin: 12/25/17 08:31 Dose: 500 mg Metoprolol Tartrate (Lopressor) 25 mg PO DAILY [facility] Last Admin: 12/25/17 09:37 Dose: 25 mg Pantoprazole Sodium (Protonix Ec Tab) 40 mg PO DAILY [facility] Last Admin: 12/25/17 09:37 Dose: 40 mg Pregabalin (Lyrica) 50 mg PO BID [facility] Last Admin: 12/25/17 09:37 Dose: 50 mg Ranolazine (Ranexa) 500 mg PO BID [facility] Last Admin: 12/25/17 09:37 Dose: 500 mg - Labs Labs: 12/25/17 07:12 12/25/17 07:12 - Constitutional Appears: Well - Head Exam Head Exam: ATRAUMATIC, NORMAL INSPECTION, NORMOCEPHALIC - Eye Exam Eye Exam: EOMI, Normal appearance, PERRL Pupil Exam: NORMAL ACCOMODATION, PERRL - ENT Exam ENT Exam: Mucous Membranes Moist, Normal Exam - Neck Exam Neck Exam: Full ROM, Normal Inspection. absent: Lymphadenopathy - Respiratory Exam Respiratory Exam: Decreased Breath Sounds - Cardiovascular Exam Cardiovascular Exam: REGULAR RHYTHM, +S1, +S2 - GI/Abdominal Exam GI & Abdominal Exam: Soft, Diminished Bowel Sounds - Rectal Exam Rectal Exam: Deferred
[2017-12-25 16:00] VITALS: BP 113/67; RESP 20; TEMP 98; O2SAT 100
[2017-12-25 16:26] VITALS: PULSE 156
== END 2017-12-25 17:45 | disposition home or self-care (01) ==
LOC: C.ER 08:41 → C.9E 11:01 → C.6T 12:13
PROVIDERS: ADMIT Internal Medicine Nephrology; ATTEND Internal Medicine Nephrology
DX: I11.0 Hypertensive heart disease with heart failure (principal); I48.91 Unspecified atrial fibrillation; D50.9 Iron deficiency anemia, unspecified; D72.829 Elevated white blood cell count, unspecified; I50.9 Heart failure, unspecified; E11.9 Type 2 diabetes mellitus without complications; E78.00 Pure hypercholesterolemia, unspecified; I08.0 Rheumatic disorders of both mitral and aortic valves; I27.20 Pulmonary hypertension, unspecified; J45.909 Unspecified asthma, uncomplicated; I25.10 Atherosclerotic heart disease of native coronary artery without angina pectoris; Z95.5 Presence of coronary angioplasty implant and graft; Z79.01 Long term (current) use of anticoagulants; Z79.84 Long term (current) use of oral hypoglycemic drugs
CPT/HCPCS: 36415; 71045; 80048; 80053; 82728; 82948; 83540; 83550; 83735; 83880; 84100; 84484; 85025; 93005; 93306; 94640; 94660; 97110; 97116; 97162; 97166; 97530; 99285; G0378; G8978; G8979; G8987; G8988; J1644; J1940

== ENCOUNTER 2017-12-27 04:04 | Inpatient (IN) | payer MEDICARE, MEDICAID ==
--- NOTE | 2017-12-27 04:10 | C.PDOC ---
History Of Present Illness Pt woke up short of breath. No chest pain. Received 3 sl ntg by ems. Speaking in 1-2 word sentences. No f/c/n/v. Pt was just discharged from [facility] yesterday Time Seen by Provider: 12/27/17 04:09 History Per: Patient, EMS, Family History/Exam Limitations: no limitations Onset/Duration Of Symptoms: Hrs Current Symptoms Are (Timing): Still Present Initiating Event: Other Quality: Dull Exacerbating Factor(s): Exertion, Laying Flat Current Respiratory Medications: See Home Med List Severity: Severe Pain Scale Rating Of: 8 Associated Symptoms: denies: Chest Pain Reports Recently: Seen In ED, Treated By A Physician, Hospitalized Recent travel outside of the [place]: No Additional History Per: Family Past Medical History Reviewed: Historical Data, Nursing Documentation, Vital Signs Vital Signs: Last Vital Signs Temp 98.1 F 12/27/17 04:12 Pulse 76 12/27/17 05:01 Resp 22 12/27/17 05:01 BP 122/42 L 12/27/17 05:01 Pulse Ox 100 12/27/17 05:07 - Medical History PMH: Asthma, Atrial Fibrillation, CHF, Diabetes, HTN, Hypercholesterolemia Denies: Chronic Kidney Disease Surgical History: Coronary Stent - [facility] Procedures ASSISTANCE WITH RESPIRATORY VENTILATION, 24-96 HRS, CPAP (11/17/15) ASSISTANCE WITH RESPIRATORY VENTILATION, <24 HRS, CPAP (05/02/16) Family History: States: Unknown Family Hx - Social History Hx Tobacco Use: No Hx Alcohol Use: No Hx Substance Use: No - Immunization History Hx Tetanus Toxoid Vaccination: No Hx Influenza Vaccination: Yes Hx Pneumococcal Vaccination: No Physical Exam - Physical Exam Appears: In Acute Distress Skin: Diaphoretic Head: Normacephalic Eye(s): bilateral: Normal Inspection Oral Mucosa: Moist Neck: Supple Chest: Symmetrical Cardiovascular: Rhythm Irregular Respiratory: Rales, No Rhonchi, No Wheezing Gastrointestinal/Abdominal: Soft, No Tenderness, No Distention Back: No CVA Tenderness Extremity: Pedal Edema (trace) Extremity: Bilateral: Atraumatic Pulses: Left Dorsalis Pedis: Normal, Right Dorsalis Pedis: Normal Neurological/Psych: Oriented x3 Gait: Unable To Assess ED Course And Treatment - Laboratory Results Result Diagrams: 12/27/17 04:43 12/27/17 04:43 ECG: Interpreted By Me, Viewed By Me ECG Rhythm: Atrial Fibrillation (90), Nonspecific Changes O2 Sat by Pulse Oximetry: 100 Pulse Ox Interpretation: Normal - Radiology CXR: Interpreted by Me, Viewed By Me CXR Interpretation: Yes: Cardiomegaly, Other (mild chf). No: Infiltrates, Fracture Critical Care Time - Critical Care Note Total Time (in mins): 30 Documented critical care: time excludes all time spent performing seperately billable procedures. Disposition Discussed With Dr.: Garcia Menendez Comment: accepted the pt on his service and took over the care at 5:17AM Doctor Will See Patient In The: Hospital Counseled Patient/Family Regarding: Studies Performed, Diagnosis - Disposition Disposition: HOSPITALIZED Disposition Time: 04:10 Condition: FAIR - POA Present On Arrival: Poor Glycemic Control - Clinical Impression Clinical Impression: Dyspnea, Respiratory distress, CHF, acute Decision To Admit - Pt Status Changed To: Hospital Disposition Of: Inpatient - Admit Certification Admit to Inpatient:: After my assessment, the patient will require hospitalization for at least two midnights. This is because of the severity of symptoms shown, intensity of services needed, and/or the medical risk in this patient being treated as an outpatient. - InPatient: Physician Admission Certification: I certify that this patient requires 2 or more midnights of care for the following reason:: After my assessment, the patient will require hospitalization for at least two midnights. This is because of the severity of symptoms shown, intensity of services needed, and/or the medical risk in this patient being treated as an outpatient. - . Bed Request Type: Telemetry Admitting Physician: Garcia Menendez Patient Diagnosis: Dyspnea, Respiratory distress, CHF, acute
[2017-12-27 04:11] VITALS: BMI 36.6
[2017-12-27] MEDS ORDERED: Aspirin 325 mg EC Tablets PO STA (04:16)
[2017-12-27] MEDS ORDERED: Aspirin 325 mg EC Tablets PO ONE (04:22)
[2017-12-27 04:36] LABS: ABG ALLEN TEST POS; ARTERIAL BLOOD GAS HCO3 24.8 mmol/L (21-28); ARTERIAL BLOOD GAS O2 SAT 100.2 % (95-98); ARTERIAL BLOOD GAS PCO2 47 mm/Hg (35-45); ARTERIAL BLOOD GAS PH 7.35 (7.35-7.45); ARTERIAL BLOOD GAS PO2 190 mm/Hg (80-100); ARTERIAL BLOOD GAS TCO2 27.3 mmol/L (22-28)
[2017-12-27 04:52] LABS: BASO # 0.1 K/uL (0.0-0.2); BASO % 0.8 % (0.0-2.0); EOS # 0.2 K/uL (0.0-0.7); EOS % 1.8 % (0.0-4.0); HEMOGLOBIN 8.6 g/dL (11.0-16.0); LYMPH # 2.5 K/uL (1.0-4.3); LYMPH % 20.1 % (20.0-40.0); MEAN CELL VOLUME 69.7 fL (81.0-99.0); MEAN CORPUSCULAR HEMOGLOBIN 21.1 pg (27.0-31.0); MEAN CORPUSCULAR HGB CONC 30.3 g/dL (33.0-37.0); MEAN PLATELET VOLUME 10.7 fL (7.2-11.7); MONO # 0.9 K/uL (0.0-0.8); MONO % 7.4 % (0.0-10.0); NEUT # 8.5 K/uL (1.8-7.0); NEUT % 69.9 % (50.0-75.0); NRBC % 0.1 % (0.0-2.0); RBC 4.05 Mil/uL (3.80-5.20); RED CELL DISTRIBUTION WIDTH 22.2 % (11.5-14.5); WHITE BLOOD COUNT 12.2 K/uL (4.8-10.8)
[2017-12-27 04:53] LABS: INR 1.2; PROTHROMBIN TIME 13.2 SECONDS (9.7-12.2)
[2017-12-27 05:11] LABS: B-TYPE NATRIURETIC PEPTIDE 2460 pg/mL (0-900)
[2017-12-27 05:12] LABS: ALB/GLOB RATIO 1.2 (1.0-2.1); ALBUMIN 4.1 g/dL (3.5-5.0); ALT/SGPT 74 U/L (9-52); AST/SGOT 141 U/L (14-36); BLOOD UREA NITROGEN 28 mg/dL (7-17); CALCIUM 9.2 mg/dl (8.6-10.4); GFR AFRICAN-AMERICAN 52; GFR NON-AFRICAN AMERICAN 43
[2017-12-27 06:00] LABS: SQUAMOUS EPITHIAL < 1 /hpf (0-5); URINE BACTERIA RARE (<OCC); URINE BILIRUBIN NEGATIVE (NEGATIVE); URINE BLOOD NEGATIVE (NEGATIVE); URINE CLARITY Clear (Clear); URINE COLOR Straw (YELLOW); URINE GLUCOSE (UA) NORMAL (Normal); URINE LEUKOCYTE ESTERASE NEG Leu/uL (Negative); URINE PROTEIN NEGATIVE (NEGATIVE); URINE UROBILINOGEN NORMAL mg/dL (0.2-1.0)
--- NOTE | 2017-12-27 08:18 | RAD ---
Chest x-ray single frontal History: Shortness of breath. Comparison: 07/10/2016 Findings: Diffuse increased interstitial lung markings suggestive for edema versus infiltrate versus venous congestion. Right hilar prominence. Biapical pleural thickening with upper lobe granulomatous changes. Patchy increased markings at the left lung base. Question trace bilateral pleural effusions. Tortuous ectatic aorta. Mild cardiomegaly. Degenerative changes in the spine and shoulders. Impression: Diffuse increased interstitial lung markings suggestive for edema versus infiltrate versus venous congestion. Right hilar prominence. Biapical pleural thickening with upper lobe granulomatous changes. Patchy increased markings at the left lung base. Question trace bilateral pleural effusions. Tortuous ectatic aorta. Mild cardiomegaly. Degenerative changes in the spine and shoulders.
[2017-12-27] MEDS ORDERED: Home Med 1 UNIT (Dexlansoprazole [Dexilant] 60 MG) PO SCH (10:00)
[2017-12-27] MEDS: Potassium Chloride 10 mEq ER Tab PO SCH (10:21)
[2017-12-27] MEDS: Multiple Vitamins Tab PO SCH (10:29)
[2017-12-27] MEDS: Pantoprazole 40 mg EC Tab PO SCH (10:30)
[2017-12-27] MEDS: Ranolazine 500 mg Extended Release Tablets PO SCH ×2 (10:30→17:27)
--- NOTE | 2017-12-27 15:05 | CP.PCM.HP ---
Past Patient History - Infectious Disease Hx of Infectious Diseases: None - Past Medical History & Family History Past Medical History?: Yes - Past Social History Smoking Status: Never Smoked - CARDIAC Hx Atrial Fibrillation: Yes Hx Congestive Heart Failure: Yes Hx Hypercholesterolemia: Yes Hx Hypertension: Yes - PULMONARY Hx Asthma: Yes - NEUROLOGICAL Hx Neurological Disorder: Yes - HEENT Hx HEENT Problems: No - RENAL Hx Chronic Kidney Disease: No - ENDOCRINE/METABOLIC Hx Diabetes Mellitus Type 2: Yes - HEMATOLOGICAL/ONCOLOGICAL Hx Blood Disorders: No - INTEGUMENTARY Hx Dermatological Problems: No - MUSCULOSKELETAL/RHEUMATOLOGICAL Hx Falls: No - GASTROINTESTINAL Hx Gastrointestinal Disorders: No - GENITOURINARY/GYNECOLOGICAL Hx Genitourinary Disorders: No - PSYCHIATRIC Hx Substance Use: No - SURGICAL HISTORY Hx Coronary Stent: Yes - ANESTHESIA Hx Anesthesia: No Hx Anesthesia Reactions: No Hx Malignant Hyperthermia: No Has any member of the family had a problem w/ anesthesia?: No Meds Allergies/Adverse Reactions: Allergies Allergy/AdvReac Type Severity Reaction Status Date / Time diltiazem HCl [From Cardizem] Allergy RASH Verified 12/27/17 04:10 garlic AdvReac Verified 12/27/17 04:33 onion AdvReac Verified 12/27/17 04:33 Physical Exam - Constitutional Appears: Well - Head Exam Head Exam: ATRAUMATIC, NORMAL INSPECTION, NORMOCEPHALIC - Eye Exam Eye Exam: EOMI, Normal appearance, PERRL Pupil Exam: NORMAL ACCOMODATION, PERRL - ENT Exam ENT Exam: Mucous Membranes Moist, Normal Exam - Neck Exam Neck exam: Positive for: Normal Inspection - Respiratory Exam Respiratory Exam: Decreased Breath Sounds - Cardiovascular Exam Cardiovascular Exam: REGULAR RHYTHM, +S1, +S2 - GI/Abdominal Exam GI & Abdominal Exam: Diminished Bowel Sounds, Soft - Rectal Exam Rectal Exam: Deferred Results - Vital Signs Recent Vital Signs: Last Vital Signs Temp 98.1 F 12/27/17 10:00 Pulse 83 12/27/17 14:00 Resp 22 12/27/17 14:00 BP 117/65 12/27/17 14:00 Pulse Ox 100 12/27/17 14:00 - Labs Result Diagrams: 12/27/17 04:43 12/27/17 04:43 Labs: Laboratory Results - last 24 hr 12/27/17 12/27/17 12/27/17 04:13 04:30 04:43 WBC 12.2 H RBC 4.05 Hgb 8.6 L Hct 28.2 L MCV 69.7 L MCH 21.1 L MCHC 30.3 L RDW 22.2 H Plt Count 214 MPV 10.7 Neut % (Auto) 69.9 Lymph % (Auto) 20.1 [place] % (Auto) 7.4 Eos % (Auto) 1.8 Baso % (Auto) 0.8 Neut # (Auto) 8.5 H Lymph # (Auto) 2.5 [place] # (Auto) 0.9 H Eos # (Auto) 0.2 Baso # (Auto) 0.1 PT INR APTT Puncture Site R rad pCO2 47 H pO2 190 H HCO3 24.8 ABG pH 7.35 ABG Total CO2 27.3 ABG O2 Saturation 100.2 H ABG Base Excess -0.2 Benitez Test Pos ABG Potassium 4.8 A-a O2 Difference 108.0 Respiratory Index 0.6 Sodium 140.0 Chloride 110.0 H Glucose 134 H Lactate 1.0 Vent Mode Bipap FiO2 50.0 Inspiratory BiPAP 10 Expiratory BiPAP 5 Potassium Carbon Dioxide Anion Gap BUN Creatinine Est GFR ( Amer) Est GFR (Non-Af Amer) POC Glucose (mg/dL) 119 H Random Glucose Calcium Magnesium Total Bilirubin AST ALT Alkaline Phosphatase Troponin I NT-Pro-B Natriuret Pep Total Protein Albumin Globulin Albumin/Globulin Ratio Arterial Blood Potassium 4.8 Urine Color Urine Clarity Urine pH Ur Specific [place] Urine Protein Urine Glucose (UA) Urine Ketones Urine Blood Urine Nitrate Urine Bilirubin Urine Urobilinogen Ur Leukocyte Esterase Urine WBC (Auto) Ur Squamous Epith Cells Urine Bacteria 12/27/17 12/27/17 12/27/17 04:43 04:43 05:55 WBC RBC Hgb Hct MCV MCH MCHC RDW Plt Count MPV Neut % (Auto) Lymph % (Auto) [place] % (Auto) Eos % (Auto) Baso % (Auto) Neut # (Auto) Lymph # (Auto) [place] # (Auto) Eos # (Auto) Baso # (Auto) PT 13.2 H INR 1.2 APTT 39 H Puncture Site pCO2 pO2 HCO3 ABG pH ABG Total CO2 ABG O2 Saturation ABG Base Excess Benitez Test ABG Potassium A-a O2 Difference Respiratory Index Sodium 143 Chloride 105 Glucose Lactate Vent Mode FiO2 Inspiratory BiPAP Expiratory BiPAP Potassium 5.8 H Carbon Dioxide 28 Anion Gap 16 BUN 28 H Creatinine 1.2 Est GFR ( Amer) 52 Est GFR (Non-Af Amer) 43 POC Glucose (mg/dL) Random Glucose 119 H Calcium 9.2 Magnesium 2.1 Total Bilirubin 0.5 AST 141 H D ALT 74 H D Alkaline Phosphatase 99 Troponin I < 0.0120 NT-Pro-B Natriuret Pep 2460 H Total Protein 7.4 Albumin 4.1 Globulin 3.3 Albumin/Globulin Ratio 1.2 Arterial Blood Potassium Urine Color Straw Urine Clarity Clear Urine pH 5.0 Ur Specific [place] 1.005 Urine Protein Negative Urine Glucose (UA) Normal Urine Ketones Negative Urine Blood Negative Urine Nitrate Negative Urine Bilirubin Negative Urine Urobilinogen Normal Ur Leukocyte Esterase Neg Urine WBC (Auto) < 1 Ur Squamous Epith Cells < 1 Urine Bacteria Rare 12/27/17 12:47 WBC RBC Hgb Hct MCV MCH MCHC RDW Plt Count MPV Neut % (Auto) Lymph % (Auto) [place] % (Auto) Eos % (Auto) Baso % (Auto) Neut # (Auto) Lymph # (Auto) [place] # (Auto) Eos # (Auto) Baso # (Auto) PT INR APTT Puncture Site pCO2 pO2 HCO3 ABG pH ABG Total CO2 ABG O2 Saturation ABG Base Excess Benitez Test ABG Potassium A-a O2 Difference Respiratory Index Sodium Chloride Glucose Lactate Vent Mode FiO2 Inspiratory BiPAP Expiratory BiPAP Potassium Carbon Dioxide Anion Gap BUN Creatinine Est GFR ( Amer) Est GFR (Non-Af Amer) POC Glucose (mg/dL) 142 H Random Glucose Calcium Magnesium Total Bilirubin AST ALT Alkaline Phosphatase Troponin I NT-Pro-B Natriuret Pep Total Protein Albumin Globulin Albumin/Globulin Ratio Arterial Blood Potassium Urine Color Urine Clarity Urine pH Ur Specific [place] Urine Protein Urine Glucose (UA) Urine Ketones Urine Blood Urine Nitrate Urine Bilirubin Urine Urobilinogen Ur Leukocyte Esterase Urine WBC (Auto) Ur Squamous Epith Cells Urine Bacteria
[2017-12-27] MEDS: (Novolog) Insulin Aspart, Recombinant 100 u/ml 10 ml vial SC SCH ×2 (16:38→22:00)
--- NOTE | 2017-12-27 20:08 | CP.PCM.CON ---
History of Present Illness - History of Present Illness History of Present Illness: Recently dc'd from hospital Returns with c/o acute SOB with exertion Patient with Mild /MS Moderate Pulmonary HTN Afib recently started on eliquis Anemia Currently feeling better Clear lungs no LE edema AFIB with controlled VR No fever or chills Normal appetite No CP, N/V A&O x3 Past Patient History - Infectious Disease Hx of Infectious Diseases: None - Past Medical History & Family History Past Medical History?: Yes - Past Social History Smoking Status: Never Smoked - CARDIAC Hx Atrial Fibrillation: Yes Hx Congestive Heart Failure: Yes Hx Hypercholesterolemia: Yes Hx Hypertension: Yes - PULMONARY Hx Asthma: Yes - NEUROLOGICAL Hx Neurological Disorder: Yes - HEENT Hx HEENT Problems: No - RENAL Hx Chronic Kidney Disease: No - ENDOCRINE/METABOLIC Hx Diabetes Mellitus Type 2: Yes - HEMATOLOGICAL/ONCOLOGICAL Hx Blood Disorders: No - INTEGUMENTARY Hx Dermatological Problems: No - MUSCULOSKELETAL/RHEUMATOLOGICAL Hx Falls: No - GASTROINTESTINAL Hx Gastrointestinal Disorders: No - GENITOURINARY/GYNECOLOGICAL Hx Genitourinary Disorders: No - PSYCHIATRIC Hx Substance Use: No - SURGICAL HISTORY Hx Coronary Stent: Yes - ANESTHESIA Hx Anesthesia: No Hx Anesthesia Reactions: No Hx Malignant Hyperthermia: No Has any member of the family had a problem w/ anesthesia?: No Meds Allergies/Adverse Reactions: Allergies Allergy/AdvReac Type Severity Reaction Status Date / Time diltiazem HCl [From [facility]] Allergy RASH Verified 12/27/17 04:10 garlic AdvReac Verified 12/27/17 04:33 onion AdvReac Verified 12/27/17 04:33 - Medications Medications: Current Medications Amlodipine Besylate (Norvasc) 5 mg PO DAILY [facility] Last Admin: 12/27/17 10:29 Dose: 5 mg Apixaban (Eliquis) 2.5 mg PO BID [facility] Last Admin: 12/27/17 17:27 Dose: 2.5 mg Ascorbic Acid (Vitamin C 500 Mg Tab) 500 mg PO DAILY [facility] Last Admin: 12/27/17 10:30 Dose: 500 mg Aspirin (Ecotrin) 81 mg PO DAILY [facility] Last Admin: 12/27/17 10:20 Dose: Not Given Ferrous Sulfate (Feosol) 325 mg PO DAILY [facility] Last Admin: 12/27/17 10:28 Dose: 325 mg Furosemide (Lasix) 40 mg IVP DAILY [facility] Last Admin: 12/27/17 10:21 Dose: Not Given Insulin Aspart (Novolog) 0 unit SC ACHS [facility] PRN Reason: Protocol Last Admin: 12/27/17 16:38 Dose: Not Given Isosorbide Mononitrate (Imdur Er) 30 mg PO DAILY [facility] Last Admin: 12/27/17 10:29 Dose: 30 mg Losartan Potassium (Cozaar) 50 mg PO BID [facility] Last Admin: 12/27/17 17:29 Dose: 50 mg [facility] Last Admin: 12/27/17 17:27 Dose: 500 mg Metoprolol Tartrate (Lopressor) 25 mg PO DAILY [facility] Last Admin: 12/27/17 10:29 Dose: 25 mg Multivitamins (Hexavitamin) 1 tab PO DAILY [facility] Last Admin: 12/27/17 10:29 Dose: 1 tab Pantoprazole Sodium (Protonix Ec Tab) 40 mg PO DAILY [facility] Last Admin: 12/27/17 10:30 Dose: 40 mg Potassium Chloride (Klor-Con 10) 10 meq PO DAILY [facility] Last Admin: 12/27/17 10:21 Dose: Not Given Pregabalin (Lyrica) 50 mg PO BID [facility] Last Admin: 12/27/17 17:27 Dose: 50 mg Ranolazine (Ranexa) 500 mg PO BID [facility] Last Admin: 12/27/17 17:27 Dose: 500 mg Rosuvastatin Calcium (Crestor) 5 mg PO [facility] Physical Exam - Constitutional Appears: No Acute Distress - Head Exam Head Exam: ATRAUMATIC, NORMAL INSPECTION, NORMOCEPHALIC - Eye Exam Eye Exam: EOMI, Normal appearance, PERRL - ENT Exam ENT Exam: Mucous Membranes Moist, Normal Oropharynx - Neck Exam Neck exam: Positive for: Normal Inspection. Negative for: Tenderness, Thyromegaly - Respiratory Exam Respiratory Exam: Clear to Auscultation Bilateral. absent: Rhonchi, Wheezes - Cardiovascular Exam Cardiovascular Exam: Irregular Rhythm, +S1, +S2, Systolic Murmur. absent: Gallop, Rubs - GI/Abdominal Exam GI & Abdominal Exam: Normal Bowel Sounds, Soft. absent: Tenderness - Extremities Exam Extremities exam: Positive for: normal inspection, pedal pulses present. Negative for: calf tenderness, pedal edema, tenderness - Neurological Exam Neurological exam: Alert, CN II-XII Intact, Oriented x3 - Psychiatric Exam Psychiatric exam: Normal Affect, Normal Mood - Skin Skin Exam: Normal Color, Warm Results - Vital Signs Recent Vital Signs: Last Vital Signs Temp 98.1 F 12/27/17 10:00 Pulse 90 12/27/17 18:00 Resp 22 12/27/17 14:00 BP 117/65 12/27/17 14:00 Pulse Ox 100 12/27/17 14:00 - Labs Result Diagrams: 12/28/17 06:16 12/28/17 06:17 Labs: Laboratory Results - last 24 hr 12/27/17 12/27/17 12/27/17 04:13 04:30 04:43 WBC 12.2 H RBC 4.05 Hgb 8.6 L Hct 28.2 L MCV 69.7 L MCH 21.1 L MCHC 30.3 L RDW 22.2 H Plt Count 214 MPV 10.7 Neut % (Auto) 69.9 Lymph % (Auto) 20.1 [place] % (Auto) 7.4 Eos % (Auto) 1.8 Baso % (Auto) 0.8 Neut # (Auto) 8.5 H Lymph # (Auto) 2.5 [place] # (Auto) 0.9 H Eos # (Auto) 0.2 Baso # (Auto) 0.1 PT INR APTT Puncture Site R rad pCO2 47 H pO2 190 H HCO3 24.8 ABG pH 7.35 ABG Total CO2 27.3 ABG O2 Saturation 100.2 H ABG Base Excess -0.2 Benitez Test Pos ABG Potassium 4.8 A-a O2 Difference 108.0 Respiratory Index 0.6 Sodium 140.0 Chloride 110.0 H Glucose 134 H Lactate 1.0 Vent Mode Bipap FiO2 50.0 Inspiratory BiPAP 10 Expiratory BiPAP 5 Potassium Carbon Dioxide Anion Gap BUN Creatinine Est GFR ( Amer) Est GFR (Non-Af Amer) POC Glucose (mg/dL) 119 H Random Glucose Calcium Magnesium Total Bilirubin AST ALT Alkaline Phosphatase Troponin I NT-Pro-B Natriuret Pep Total Protein Albumin Globulin Albumin/Globulin Ratio Arterial Blood Potassium 4.8 Urine Color Urine Clarity Urine pH Ur Specific [place] Urine Protein Urine Glucose (UA) Urine Ketones Urine Blood Urine Nitrate Urine Bilirubin Urine Urobilinogen Ur Leukocyte Esterase Urine WBC (Auto) Ur Squamous Epith Cells Urine Bacteria 12/27/17 12/27/17 12/27/17 04:43 04:43 05:55 WBC RBC Hgb Hct MCV MCH MCHC RDW Plt Count MPV Neut % (Auto) Lymph % (Auto) [place] % (Auto) Eos % (Auto) Baso % (Auto) Neut # (Auto) Lymph # (Auto) [place] # (Auto) Eos # (Auto) Baso # (Auto) PT 13.2 H INR 1.2 APTT 39 H Puncture Site pCO2 pO2 HCO3 ABG pH ABG Total CO2 ABG O2 Saturation ABG Base Excess Benitez Test ABG Potassium A-a O2 Difference Respiratory Index Sodium 143 Chloride 105 Glucose Lactate Vent Mode FiO2 Inspiratory BiPAP Expiratory BiPAP Potassium 5.8 H Carbon Dioxide 28 Anion Gap 16 BUN 28 H Creatinine 1.2 Est GFR ( Amer) 52 Est GFR (Non-Af Amer) 43 POC Glucose (mg/dL) Random Glucose 119 H Calcium 9.2 Magnesium 2.1 Total Bilirubin 0.5 AST 141 H D ALT 74 H D Alkaline Phosphatase 99 Troponin I < 0.0120 NT-Pro-B Natriuret Pep 2460 H Total Protein 7.4 Albumin 4.1 Globulin 3.3 Albumin/Globulin Ratio 1.2 Arterial Blood Potassium Urine Color Straw Urine Clarity Clear Urine pH 5.0 Ur Specific [place] 1.005 Urine Protein Negative Urine Glucose (UA) Normal Urine Ketones Negative Urine Blood Negative Urine Nitrate Negative Urine Bilirubin Negative Urine Urobilinogen Normal Ur Leukocyte Esterase Neg Urine WBC (Auto) < 1 Ur Squamous Epith Cells < 1 Urine Bacteria Rare 12/27/17 12/27/17 12:47 16:35 WBC RBC Hgb Hct MCV MCH MCHC RDW Plt Count MPV Neut % (Auto) Lymph % (Auto) [place] % (Auto) Eos % (Auto) Baso % (Auto) Neut # (Auto) Lymph # (Auto) [place] # (Auto) Eos # (Auto) Baso # (Auto) PT INR APTT Puncture Site pCO2 pO2 HCO3 ABG pH ABG Total CO2 ABG O2 Saturation ABG Base Excess [place]z Test ABG Potassium A-a O2 Difference Respiratory Index Sodium Chloride Glucose Lactate Vent Mode FiO2 Inspiratory BiPAP Expiratory BiPAP Potassium Carbon Dioxide Anion Gap BUN Creatinine Est GFR ( Amer) Est GFR (Non-Af Amer) POC Glucose (mg/dL) 142 H 139 H Random Glucose Calcium Magnesium Total Bilirubin AST ALT Alkaline Phosphatase Troponin I NT-Pro-B Natriuret Pep Total Protein Albumin Globulin Albumin/Globulin Ratio Arterial Blood Potassium Urine Color Urine Clarity Urine pH Ur Specific [place] Urine Protein Urine Glucose (UA) Urine Ketones Urine Blood Urine Nitrate Urine Bilirubin Urine Urobilinogen Ur Leukocyte Esterase Urine WBC (Auto) Ur Squamous Epith Cells Urine Bacteria - EKG Data EKG Interpreted by: Myself (AFIB, no acute ischemic changes) Assessment & Plan - Assessment and Plan (Free Text) Assessment: - echo 05/2016: directly viewed by me: Normal EF, LVH, MAC, aortic calcification : Mild MS, Mild (V,ax 2.41 m/s) Repeat echo 12/22/17 continues to show 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 ------> There is no surgical indication at this point, ideally coumadin given rheumatic MS but inability to monitor INR and concerns can use eliquis 2.5 BID for CVA risk reduction ( [id number] score >5) w/u anemia as cause of SOB---> most likely JEROME: Patient reports no GI/ bleeding and MCV is low: iron fortified diet. TELE suggest AFIB with controlled rate on current meds Meds reviewed Add digoxin 0.125 daily Cont metoprolol 25 consider inc to 50 if tolerated cont eliquis 2.5 BID cont lasix 20-40md po daily ---> I have though of trying amiodarone 200 daily but feel it may be to aggressive for her at this age and with associated CXRAY findings...therfeore DIG and metoprolol may be a reasonable option for now...monitor for slow heart rates After 1-2 weeks of rate control and AC will discuss R&B of electrical cardioversion with JOSE DANIEL gudance as an outpatient. D/c planning
[2017-12-28 06:22] LABS: BASO % 0.5 % (0.0-2.0); EOS # 0.2 K/uL (0.0-0.7); EOS % 2.5 % (0.0-4.0); HEMOGLOBIN 8.2 g/dL (11.0-16.0); LYMPH # 3.1 K/uL (1.0-4.3); LYMPH % 34.6 % (20.0-40.0); MEAN CORPUSCULAR HEMOGLOBIN 21.6 pg (27.0-31.0); MEAN CORPUSCULAR HGB CONC 30.9 g/dL (33.0-37.0); MEAN PLATELET VOLUME 11.3 fL (7.2-11.7); MONO # 0.7 K/uL (0.0-0.8); MONO % 7.5 % (0.0-10.0); NEUT # 4.9 K/uL (1.8-7.0); NEUT % 54.9 % (50.0-75.0); NRBC % 0.1 % (0.0-2.0); RBC 3.81 Mil/uL (3.80-5.20); RED CELL DISTRIBUTION WIDTH 21.9 % (11.5-14.5); WHITE BLOOD COUNT 8.9 K/uL (4.8-10.8)
[2017-12-28 06:40] LABS: ALB/GLOB RATIO 1.2 (1.0-2.1); ALBUMIN 3.5 g/dL (3.5-5.0); CALCIUM 9.2 mg/dl (8.6-10.4)
[2017-12-28] MEDS: (Novolog) Insulin Aspart, Recombinant 100 u/ml 10 ml vial SC SCH ×4 (07:52→21:23)
[2017-12-28] MEDS: Multiple Vitamins Tab PO SCH (09:02)
[2017-12-28] MEDS: Ranolazine 500 mg Extended Release Tablets PO SCH ×2 (09:03→17:05)
[2017-12-28] MEDS: Pantoprazole 40 mg EC Tab PO SCH (09:03)
[2017-12-28] MEDS: Potassium Chloride 10 mEq ER Tab PO SCH (09:04)
--- NOTE | 2017-12-28 15:47 | CP.PCM.PN ---
Subjective - Date & Time of Evaluation Date of Evaluation: 12/28/17 Time of Evaluation: 13:40 - Subjective Subjective: clinically same Objective - Vital Signs/Intake and Output Vital Signs (last 24 hours): Temp Pulse Resp BP Pulse Ox 97.8 F 79 20 138/66 99 12/28/17 12:00 12/28/17 12:00 12/28/17 12:00 12/28/17 12:00 12/28/17 12:00 Intake and Output: 12/28/17 12/28/17 06:59 18:59 Intake Total 480 Output Total 650 Balance -170 - Medications Medications: Current Medications Amlodipine Besylate (Norvasc) 5 mg PO DAILY [facility] Last Admin: 12/28/17 09:02 Dose: 5 mg Apixaban (Eliquis) 2.5 mg PO BID [facility] Last Admin: 12/28/17 09:03 Dose: 2.5 mg Ascorbic Acid (Vitamin C 500 Mg Tab) 500 mg PO DAILY [facility] Last Admin: 12/28/17 09:02 Dose: 500 mg Aspirin (Ecotrin) 81 mg PO DAILY [facility] Last Admin: 12/28/17 09:02 Dose: 81 mg Digoxin (Digoxin) 0.125 mg PO DAILY@1800 [facility] Ferrous Sulfate (Feosol) 325 mg PO DAILY [facility] Last Admin: 12/28/17 09:02 Dose: 325 mg Furosemide (Lasix) 40 mg IVP DAILY [facility] Last Admin: 12/28/17 09:02 Dose: 40 mg Insulin Aspart (Novolog) 0 unit SC [facility] PRN Reason: Protocol Last Admin: 12/28/17 12:00 Dose: Not Given Isosorbide Mononitrate (Imdur Er) 30 mg PO DAILY [facility] Last Admin: 12/28/17 09:02 Dose: 30 mg Losartan Potassium (Cozaar) 50 mg PO BID [facility] Last Admin: 12/28/17 09:03 Dose: 50 mg [facility] Admin: 12/28/17 09:00 Dose: 500 mg Metoprolol Tartrate (Lopressor) 25 mg PO DAILY [facility] Last Admin: 12/28/17 09:03 Dose: 25 mg Multivitamins (Hexavitamin) 1 tab PO DAILY [facility] Last Admin: 12/28/17 09:02 Dose: 1 tab Pantoprazole Sodium (Protonix Ec Tab) 40 mg PO DAILY [facility] Last Admin: 12/28/17 09:03 Dose: 40 mg Potassium Chloride (Klor-Con 10) 10 meq PO DAILY [facility] Last Admin: 12/28/17 09:04 Dose: Not Given Pregabalin (Lyrica) 50 mg PO BID [facility] Last Admin: 12/28/17 09:03 Dose: 50 mg Ranolazine (Ranexa) 500 mg PO BID [facility] Last Admin: 12/28/17 09:03 Dose: 500 mg Rosuvastatin Calcium (Crestor) 5 mg PO [facility] Last Admin: 12/27/17 21:11 Dose: 5 mg - Labs Labs: 12/28/17 06:16 12/28/17 06:17 PT 13.2 SECONDS (9.7-12.2) H 12/27/17 04:43 INR 1.2 12/27/17 04:43 APTT 39 SECONDS (21-34) H 12/27/17 04:43 - Constitutional Appears: Well - Head Exam Head Exam: ATRAUMATIC, NORMAL INSPECTION, NORMOCEPHALIC - Eye Exam Eye Exam: EOMI, Normal appearance, PERRL Pupil Exam: NORMAL ACCOMODATION, PERRL - ENT Exam ENT Exam: Mucous Membranes Moist, Normal Exam - Neck Exam Neck Exam: Full ROM, Normal Inspection. absent: Lymphadenopathy - Respiratory Exam Respiratory Exam: Decreased Breath Sounds - Cardiovascular Exam Cardiovascular Exam: REGULAR RHYTHM, +S1, +S2 - GI/Abdominal Exam GI & Abdominal Exam: Soft, Diminished Bowel Sounds - Rectal Exam Rectal Exam: Deferred
[2017-12-28 17:05] VITALS: PULSE 76
[2017-12-28] MEDS ORDERED: Digoxin 125 mcg (0.125 mg) Tab PO SCH (18:00)
--- NOTE | 2017-12-28 19:25 | CARD ---
APPROVED REPORT EKG Measurement Heart [id number] <Conclusion> Atrial fibrillation Right axis deviation Low voltage QRS Cannot rule out Anteroseptal infarct, age undetermined Abnormal ECG
[2017-12-29 06:21] VITALS: O2SAT 100
[2017-12-29] MEDS: (Novolog) Insulin Aspart, Recombinant 100 u/ml 10 ml vial SC SCH (08:00)
[2017-12-29 08:18] VITALS: PULSE 70; RESP 18; TEMP 98.4
[2017-12-29 08:34] VITALS: BP 124/72
[2017-12-29] MEDS: Ranolazine 500 mg Extended Release Tablets PO SCH (09:00)
[2017-12-29] MEDS: Pantoprazole 40 mg EC Tab PO SCH (09:01)
[2017-12-29] MEDS: Multiple Vitamins Tab PO SCH (09:01)
[2017-12-29] MEDS: Potassium Chloride 10 mEq ER Tab PO SCH (09:09)
== END 2017-12-29 11:42 | disposition home or self-care (01) | DRG 293 ==
LOC: C.ER 04:04 → C.9E 05:16 → C.9I 09:28 → C.6T 12-29 10:22
PROVIDERS: ADMIT Internal Medicine Nephrology; ATTEND Internal Medicine Nephrology
DX: I11.0 Hypertensive heart disease with heart failure (principal); I50.9 Heart failure, unspecified; E11.9 Type 2 diabetes mellitus without complications; E78.00 Pure hypercholesterolemia, unspecified; I27.20 Pulmonary hypertension, unspecified; I48.91 Unspecified atrial fibrillation; J45.909 Unspecified asthma, uncomplicated; Z95.5 Presence of coronary angioplasty implant and graft; D64.9 Anemia, unspecified; I08.0 Rheumatic disorders of both mitral and aortic valves

== ENCOUNTER 2018-02-27 06:16 | Inpatient (IN) | payer MEDICARE, MEDICAID ==
[2018-02-27 06:16] VITALS: PULSE 76; BMI 36.6
--- NOTE | 2018-02-27 06:19 | C.PDOC ---
History Of Present Illness <Devan Salazar - Last Filed: 02/27/18 06:41> <Ebony Carrillo - Last Filed: 03/02/18 02:32> Patient presents to the ER via EMS after waking up SOB. Patient is currently speaking in 1-2 word sentences. Denies chest pain, fever, chills, nausea, or vomiting. Patient received 20 lasix and 2 sublingual nitro in the field. (Devan Salazar) History Per: Patient History/Exam Limitations: no limitations Onset/Duration Of Symptoms: Hrs Current Symptoms Are (Timing): Still Present Initiating Event: Other (Not known) Current Respiratory Medications: See Home Med List Severity: Moderate Pain Scale Rating Of: 4 Associated Symptoms: denies: Fever, Chills, Chest Pain, Other (Nausea, vomiting) Recent travel outside of the [place]: No <Devan Salazar - Last Filed: 02/27/18 06:41> <Ebony Carrillo - Last Filed: 03/02/18 02:32> Time Seen by Provider: 02/27/18 06:18 Chief Complaint (Nursing): Shortness Of Breath Past Medical History Reviewed: Historical Data, Nursing Documentation, Vital Signs - Medical History PMH: Asthma, Atrial Fibrillation, CHF, Diabetes, HTN, Hypercholesterolemia Surgical History: Coronary Stent Family History: States: No Known Family Hx - Social History Hx Tobacco Use: No Hx Alcohol Use: No Hx Substance Use: No - Immunization History Hx Tetanus Toxoid Vaccination: No Hx Influenza Vaccination: Yes Hx Pneumococcal Vaccination: No <Devan Salazar - Last Filed: 02/27/18 06:41> Vital Signs: Last Vital Signs Temp 97.9 F 03/01/18 07:00 Pulse 68 03/01/18 12:04 Resp 18 03/01/18 07:00 BP 143/81 03/01/18 11:21 Pulse Ox 100 03/01/18 07:00 - [facility] Procedures ASSISTANCE WITH RESPIRATORY VENTILATION, 24-96 HRS, CPAP (11/17/15) ASSISTANCE WITH RESPIRATORY VENTILATION, <24 HRS, CPAP (05/02/16) Review Of Systems Constitutional: Negative for: Fever, Chills Cardiovascular: Negative for: Chest Pain Respiratory: Positive for: Shortness of Breath Gastrointestinal: Negative for: Nausea, Vomiting Genitourinary: Negative for: Dysuria, Hematuria Neurological: Negative for: Weakness, Numbness <MartinMerlynno - Last Filed: 02/27/18 06:41> Physical Exam - Physical Exam Appears: Non-toxic Skin: Warm, Dry Head: Normacephalic Oral Mucosa: Moist Chest: Symmetrical, No Tenderness Cardiovascular: Rhythm Irregular Respiratory: Rales (At bases), No Rhonchi, No Wheezing Gastrointestinal/Abdominal: Soft, No Tenderness, No Distention Back: No CVA Tenderness Extremity: No Pedal Edema Neurological/Psych: Oriented x3 <MartinMerlynno - Last Filed: 02/27/18 06:41> ED Course And Treatment ECG: Interpreted By Me, Viewed By Me ECG Rhythm: Atrial Fibrillation (77), Nonspecific Changes (unchanged from ) Pulse Ox Interpretation: Normal (100) - Radiology CXR: Interpreted by Me, Viewed By Me CXR Interpretation: Yes: Cardiomegaly, Other (chf). No: Infiltrates, Fracture Progress Note: EKG, blood work, CXR, and urinalysis ordered. <Devan Salazar - Last Filed: 02/27/18 06:41> - Laboratory Results Result Diagrams: 02/28/18 08:32 02/28/18 08:32 <Ebony Carrillo - Last Filed: 03/02/18 02:32> Critical Care Time - Critical Care Note Total Time (in mins): 30 Documented critical care: time excludes all time spent performing seperately billable procedures. <MartinMerlynno - Last Filed: 02/27/18 06:41> Disposition Counseled Patient/Family Regarding: Studies Performed, Diagnosis - Disposition Disposition Time: 06:18 <MartinMerlynno - Last Filed: 02/27/18 06:41> <Ebony Carrillo A - Last Filed: 03/02/18 02:32> - Disposition Disposition: HOSPITALIZED Condition: GUARDED - Clinical Impression Clinical Impression: Atrial fibrillation, Respiratory distress, CHF, acute - Scribe Statement The provider has reviewed the documentation as recorded by the Scribe <Devan Salazar - Last Filed: 02/27/18 06:41> <Ebony Carrillo - Last Filed: 03/02/18 02:32> - Scribe Statement Fernando Ferrer All medical record entries made by the Scribe were at my direction and personally dictated by me. I have reviewed the chart and agree that the record accurately reflects my personal performance of the history, physical exam, medical decision making, and the department course for this patient. I have also personally directed, reviewed, and agree with the discharge instructions and disposition. (Devan Salazar) Addendum <Devan Salazar - Last Filed: 02/27/18 06:41> <Ebony Carrillo - Last Filed: 03/02/18 02:32> Addendum: 02/27/18 07:13 Patient K 6.1 with hemolysis, on EKG no peaked T waves, QRS 0.8ms - will give hyperkalemia cocktail. Patient already admitted under Dr. Ester Menendez's service. (Ebony Carrillo)
[2018-02-27 06:41] LABS: BASO % 0.4 % (0.0-2.0); EOS # 0.2 K/uL (0.0-0.7); EOS % 2.2 % (0.0-4.0); HEMOGLOBIN 11.7 g/dL (11.0-16.0); LYMPH # 3.1 K/uL (1.0-4.3); LYMPH % 32.9 % (20.0-40.0); MEAN CELL VOLUME 79.1 fL (81.0-99.0); MEAN CORPUSCULAR HGB CONC 31.7 g/dL (33.0-37.0); MEAN PLATELET VOLUME 11.6 fL (7.2-11.7); MONO # 0.7 K/uL (0.0-0.8); MONO % 7.8 % (0.0-10.0); NEUT # 5.3 K/uL (1.8-7.0); NEUT % 56.7 % (50.0-75.0); NRBC % 0.1 % (0.0-2.0); RBC 4.65 Mil/uL (3.80-5.20); RED CELL DISTRIBUTION WIDTH 24.9 % (11.5-14.5); WHITE BLOOD COUNT 9.4 K/uL (4.8-10.8)
[2018-02-27 06:55] LABS: ALB/GLOB RATIO 1.5 (1.0-2.1); ALT/SGPT 33 U/L (9-52); AST/SGOT 30 U/L (14-36); BLOOD UREA NITROGEN 29 mg/dL (7-17); CALCIUM 9.8 mg/dl (8.6-10.4); GFR AFRICAN-AMERICAN 52; GFR NON-AFRICAN AMERICAN 43
[2018-02-27 06:56] LABS: PROTHROMBIN TIME 10.8 SECONDS (9.7-12.2)
[2018-02-27 07:02] LABS: ABG ALLEN TEST POS; ARTERIAL BLOOD GAS O2 SAT 100.6 % (95-98); ARTERIAL BLOOD GAS PCO2 43 mm/Hg (35-45); ARTERIAL BLOOD GAS PH 7.38 (7.35-7.45); ARTERIAL BLOOD GAS PO2 541 mm/Hg (80-100); ARTERIAL BLOOD GAS TCO2 26.7 mmol/L (22-28)
[2018-02-27 07:03] LABS: SQUAMOUS EPITHIAL < 1 /hpf (0-5); URINE BILIRUBIN NEGATIVE (NEGATIVE); URINE BLOOD NEGATIVE (NEGATIVE); URINE CLARITY Clear (Clear); URINE COLOR Straw (YELLOW); URINE GLUCOSE (UA) NORMAL (Normal); URINE LEUKOCYTE ESTERASE NEG Leu/uL (Negative); URINE PROTEIN NEGATIVE (NEGATIVE); URINE UROBILINOGEN NORMAL mg/dL (0.2-1.0)
[2018-02-27 07:06] LABS: B-TYPE NATRIURETIC PEPTIDE 1880 pg/mL (0-900)
[2018-02-27] MEDS ORDERED: Dextrose 50% SYRINGE Inj (50 ml) IVP STA (07:16)
[2018-02-27] MEDS ORDERED: (Novolin R) Insulin Human Regular 100 units/ml vial IV ONE (07:16)
[2018-02-27] MEDS ORDERED: Sod Polystyrene Sulf 15 gm/60 ml Susp PO STA (07:16)
[2018-02-27] MEDS ORDERED: Sod Polystyrene Sulf 15 gm/60 ml Susp ONE (07:47)
[2018-02-27] MEDS ORDERED: (Novolin R) Insulin Human Regular 100 units/ml vial ONE (07:47)
[2018-02-27] MEDS ORDERED: Calcium Gluconate 4.65 mEq/10 ml Inj ONE (07:47)
[2018-02-27] MEDS ORDERED: Dextrose 50% SYRINGE Inj (50 ml) ONE (07:48)
--- NOTE | 2018-02-27 09:48 | RAD ---
Date of service: 02/27/2018 PROCEDURE: CHEST RADIOGRAPH, 1 VIEW HISTORY: SOB COMPARISON: 12/27/2017. FINDINGS: LUNGS: Clear. PLEURA: No pneumothorax or pleural fluid seen. CARDIOVASCULAR: Mild pulmonary vascular congestion. OSSEOUS STRUCTURES: No significant abnormalities. VISUALIZED UPPER ABDOMEN: Normal. OTHER FINDINGS: None. IMPRESSION: Mild CHF, acute a new finding compared to the prior study. Concordant results with the preliminary interpretation rendered by the emergency department physician procedure.
[2018-02-27] MEDS ORDERED: Dextrose 50% SYRINGE Inj (50 ml) IV PRN (13:01)
[2018-02-27] MEDS ORDERED: Glucagon Recombinant 1 mg Inj IM PRN (13:01)
[2018-02-27] MEDS: Ranolazine 500 mg Extended Release Tablets PO SCH (17:17)
[2018-02-27] MEDS: (Novolog) Insulin Aspart, Recombinant 100 u/ml 10 ml vial SC SCH ×2 (17:19→21:47)
--- NOTE | 2018-02-27 20:51 | CP.PCM.HP ---
Past Patient History - Infectious Disease Hx of Infectious Diseases: None - Past Medical History & Family History Past Medical History?: Yes - Past Social History Smoking Status: Never Smoked - CARDIAC Hx Atrial Fibrillation: Yes Hx Congestive Heart Failure: Yes Hx Hypercholesterolemia: Yes Hx Hypertension: Yes - PULMONARY Hx Asthma: Yes - NEUROLOGICAL Hx Neurological Disorder: Yes - HEENT Hx HEENT Problems: No - RENAL Hx Chronic Kidney Disease: No - ENDOCRINE/METABOLIC Hx Endocrine Disorders: Yes Hx Diabetes Mellitus Type 2: Yes - HEMATOLOGICAL/ONCOLOGICAL Hx Blood Disorders: No - INTEGUMENTARY Hx Dermatological Problems: No - MUSCULOSKELETAL/RHEUMATOLOGICAL Hx Falls: No - GASTROINTESTINAL Hx Gastrointestinal Disorders: No - GENITOURINARY/GYNECOLOGICAL Hx Genitourinary Disorders: No - PSYCHIATRIC Hx Substance Use: No - SURGICAL HISTORY Hx Coronary Stent: Yes - ANESTHESIA Hx Anesthesia: No Hx Anesthesia Reactions: No Hx Malignant Hyperthermia: No Has any member of the family had a problem w/ anesthesia?: No Meds Allergies/Adverse Reactions: Allergies Allergy/AdvReac Type Severity Reaction Status Date / Time diltiazem HCl [From Cardizem] Allergy RASH Verified 02/27/18 06:24 garlic AdvReac Verified 02/27/18 06:24 onion AdvReac Verified 02/27/18 06:24 Physical Exam - Constitutional Appears: Well - Head Exam Head Exam: ATRAUMATIC, NORMAL INSPECTION, NORMOCEPHALIC - Eye Exam Eye Exam: EOMI, Normal appearance, PERRL Pupil Exam: NORMAL ACCOMODATION, PERRL - ENT Exam ENT Exam: Mucous Membranes Moist, Normal Exam - Neck Exam Neck exam: Positive for: Normal Inspection - Respiratory Exam Respiratory Exam: Decreased Breath Sounds - Cardiovascular Exam Cardiovascular Exam: REGULAR RHYTHM, +S1, +S2 - GI/Abdominal Exam GI & Abdominal Exam: Diminished Bowel Sounds, Soft - Rectal Exam Rectal Exam: Deferred Results - Vital Signs Recent Vital Signs: Last Vital Signs Temp 97.8 F 02/27/18 15:57 Pulse 79 02/27/18 15:57 Resp 20 02/27/18 15:57 BP 153/74 H 02/27/18 17:54 Pulse Ox 99 02/27/18 15:57 - Labs Result Diagrams: 02/27/18 06:38 02/27/18 06:38 Labs: Laboratory Results - last 24 hr 02/27/18 02/27/18 02/27/18 06:38 06:38 06:38 WBC 9.4 RBC 4.65 Hgb 11.7 D Hct 36.8 MCV 79.1 L D MCH 25.0 L MCHC 31.7 L RDW 24.9 H Plt Count 183 MPV 11.6 Neut % (Auto) 56.7 Lymph % (Auto) 32.9 [place] % (Auto) 7.8 Eos % (Auto) 2.2 Baso % (Auto) 0.4 Neut # (Auto) 5.3 Lymph # (Auto) 3.1 [place] # (Auto) 0.7 Eos # (Auto) 0.2 Baso # (Auto) 0.0 PT 10.8 INR 1.0 APTT 38 H Puncture Site pCO2 pO2 HCO3 ABG pH ABG Total CO2 ABG O2 Saturation ABG Base Excess [place] Test ABG Potassium A-a O2 Difference Respiratory Index Glucose Lactate FiO2 Sodium 142 Potassium 6.1 H Chloride 104 Carbon Dioxide 26 Anion Gap 19 BUN 29 H Creatinine 1.2 Est GFR ( Amer) 52 Est GFR (Non-Af Amer) 43 POC Glucose (mg/dL) Random Glucose 120 H Calcium 9.8 Total Bilirubin 0.9 AST 30 ALT 33 Alkaline Phosphatase 82 Troponin I < 0.0120 NT-Pro-B Natriuret Pep 1880 H Total Protein 8.3 Albumin 5.0 D Globulin 3.3 Albumin/Globulin Ratio 1.5 Arterial Blood Potassium Urine Color Urine Clarity Urine pH Ur Specific [place] Urine Protein Urine Glucose (UA) Urine Ketones Urine Blood Urine Nitrate Urine Bilirubin Urine Urobilinogen Ur Leukocyte Esterase Urine RBC (Auto) Ur Squamous Epith Cells Digoxin 02/27/18 02/27/18 02/27/18 06:44 06:45 07:09 WBC RBC Hgb Hct MCV MCH MCHC RDW Plt Count MPV Neut % (Auto) Lymph % (Auto) [place] % (Auto) Eos % (Auto) Baso % (Auto) Neut # (Auto) Lymph # (Auto) [place] # (Auto) Eos # (Auto) Baso # (Auto) PT INR APTT Puncture Site Rr pCO2 43 pO2 541 H HCO3 25.0 ABG pH 7.38 ABG Total CO2 26.7 ABG O2 Saturation 100.6 H ABG Base Excess 0 Benitez Test Pos ABG Potassium 5.5 H A-a O2 Difference 118.0 Respiratory Index 0.2 Glucose 114 H Lactate 1.0 FiO2 100.0 Sodium 136.0 Potassium Chloride 109.0 H Carbon Dioxide Anion Gap BUN Creatinine Est GFR ( Amer) Est GFR (Non-Af Amer) POC Glucose (mg/dL) Random Glucose Calcium Total Bilirubin AST ALT Alkaline Phosphatase Troponin I NT-Pro-B Natriuret Pep Total Protein Albumin Globulin Albumin/Globulin Ratio Arterial Blood Potassium 5.5 H Urine Color Straw Urine Clarity Clear Urine pH 5.0 Ur Specific [place] 1.005 Urine Protein Negative Urine Glucose (UA) Normal Urine Ketones Negative Urine Blood Negative Urine Nitrate Negative Urine Bilirubin Negative Urine Urobilinogen Normal Ur Leukocyte Esterase Neg Urine RBC (Auto) < 1 Ur Squamous Epith Cells < 1 Digoxin < 0.4 L 02/27/18 16:44 WBC RBC Hgb Hct MCV MCH MCHC RDW Plt Count MPV Neut % (Auto) Lymph % (Auto) [place] % (Auto) Eos % (Auto) Baso % (Auto) Neut # (Auto) Lymph # (Auto) [place] # (Auto) Eos # (Auto) Baso # (Auto) PT INR APTT Puncture Site pCO2 pO2 HCO3 ABG pH ABG Total CO2 ABG O2 Saturation ABG Base Excess [place]itez Test ABG Potassium A-a O2 Difference Respiratory Index Glucose Lactate FiO2 Sodium Potassium Chloride Carbon Dioxide Anion Gap BUN Creatinine Est GFR ( Amer) Est GFR (Non-Af Amer) POC Glucose (mg/dL) 150 H Random Glucose Calcium Total Bilirubin AST ALT Alkaline Phosphatase Troponin I NT-Pro-B Natriuret Pep Total Protein Albumin Globulin Albumin/Globulin Ratio Arterial Blood Potassium Urine Color Urine Clarity Urine pH Ur Specific [place] Urine Protein Urine Glucose (UA) Urine Ketones Urine Blood Urine Nitrate Urine Bilirubin Urine Urobilinogen Ur Leukocyte Esterase Urine RBC (Auto) Ur Squamous Epith Cells Digoxin
[2018-02-27] MEDS: Sod Polystyrene Sulf 15 gm/60 ml Susp PO ONE ×2 (21:46→21:54)
[2018-02-28] MEDS: Albuterol-Ipratrop 3 mg / 0.5 (3 ml) UD INH SCH ×4 (01:26→19:12)
[2018-02-28] MEDS: (Novolog) Insulin Aspart, Recombinant 100 u/ml 10 ml vial SC SCH ×3 (07:27→18:21)
[2018-02-28 08:58] LABS: BASO # 0.1 K/uL (0.0-0.2); BASO % 0.7 % (0.0-2.0); EOS # 0.2 K/uL (0.0-0.7); HEMOGLOBIN 10.6 g/dL (11.0-16.0); LYMPH # 3.4 K/uL (1.0-4.3); LYMPH % 32.5 % (20.0-40.0); MEAN CELL VOLUME 79.1 fL (81.0-99.0); MEAN CORPUSCULAR HEMOGLOBIN 25.5 pg (27.0-31.0); MEAN CORPUSCULAR HGB CONC 32.3 g/dL (33.0-37.0); MONO # 0.9 K/uL (0.0-0.8); MONO % 8.9 % (0.0-10.0); NEUT # 5.8 K/uL (1.8-7.0); NEUT % 55.9 % (50.0-75.0); RBC 4.16 Mil/uL (3.80-5.20); RED CELL DISTRIBUTION WIDTH 24.4 % (11.5-14.5); WHITE BLOOD COUNT 10.4 K/uL (4.8-10.8)
[2018-02-28 09:10] LABS: BLOOD UREA NITROGEN 19 mg/dL (7-17); CALCIUM 8.7 mg/dl (8.6-10.4); GFR AFRICAN-AMERICAN > 60; GFR NON-AFRICAN AMERICAN 53
[2018-02-28] MEDS ORDERED: Pantoprazole 40 mg EC Tab PO SCH (10:00)
[2018-02-28] MEDS ORDERED: Potassium Chloride 10 mEq ER Tab PO SCH (10:00)
[2018-02-28] MEDS: Ranolazine 500 mg Extended Release Tablets PO SCH ×2 (10:20→18:19)
[2018-02-28] MEDS: Multiple Vitamins Tab PO SCH (10:21)
[2018-02-28] MEDS: Pantoprazole 40 mg EC Tab PO SCH (10:21)
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
--- NOTE | 2018-02-28 14:33 | CP.PCM.PN ---
Subjective - Date & Time of Evaluation Date of Evaluation: 02/28/18 Time of Evaluation: 12:00 - Subjective Subjective: clinically same Objective - Vital Signs/Intake and Output Vital Signs (last 24 hours): Temp Pulse Resp BP Pulse Ox 97.6 F 69 18 145/80 97 02/28/18 07:05 02/28/18 11:22 02/28/18 07:05 02/28/18 10:21 02/28/18 07:05 Intake and Output: 02/28/18 02/28/18 06:59 18:59 Intake Total 120 Balance 120 - Medications Medications: Current Medications Albuterol/Ipratropium (Duoneb 3 Mg/0.5 Mg (3 Ml) Ud) 3 ml INH RQ6 [facility] Last Admin: 02/28/18 01:26 Dose: Not Given Amlodipine Besylate (Norvasc) 5 mg PO DAILY [facility] Last Admin: 02/28/18 10:21 Dose: 5 mg Apixaban (Eliquis) 2.5 mg PO BID [facility] Last Admin: 02/28/18 10:20 Dose: 2.5 mg Ascorbic Acid (Vitamin C 500 Mg Tab) 500 mg PO DAILY [facility] Last Admin: 02/28/18 10:21 Dose: 500 mg Aspirin (Ecotrin) 81 mg PO DAILY [facility] Last Admin: 02/28/18 10:21 Dose: 81 mg Dextrose (Dextrose 50% Inj) 0 ml IV STAT PRN; Protocol PRN Reason: Hypoglycemia Protocol Dextrose (Glutose 15) 0 gm PO ONCE PRN; Protocol PRN Reason: Hypoglycemia Protocol Ferrous Sulfate (Feosol) 325 mg PO DAILY [facility] Last Admin: 02/28/18 10:20 Dose: 325 mg Furosemide (Lasix) 40 mg IVP BID [facility] Last Admin: 02/28/18 10:21 Dose: 40 mg Glucagon (Glucagen Diagnostic Kit) 0 mg IM STAT PRN; Protocol PRN Reason: Hypoglycemia Protocol Dextrose (Dextrose 5% In Water 1000 Ml) 1,000 mls @ 0 mls/hr IV .Q0M PRN; Protocol; Per Protocol PRN Reason: Hypoglycemia Protocol Insulin Aspart (Novolog) 0 unit SC ACHS [facility] PRN Reason: Protocol Last Admin: 02/28/18 13:11 Dose: 1 units Isosorbide Mononitrate (Imdur Er) 30 mg PO DAILY [facility] Last Admin: 02/28/18 10:20 Dose: 30 mg Losartan Potassium (Cozaar) 25 mg PO DAILY [facility] Last Admin: 02/28/18 10:20 Dose: 25 mg Metoprolol Tartrate (Lopressor) 25 mg PO DAILY [facility] Last Admin: 02/28/18 10:20 Dose: 25 mg Multivitamins (Hexavitamin) 1 tab PO DAILY [facility] Last Admin: 02/28/18 10:21 Dose: 1 tab Pantoprazole Sodium (Protonix Ec Tab) 40 mg PO DAILY [facility] Last Admin: 02/28/18 10:21 Dose: 40 mg Pantoprazole Sodium (Protonix Ec Tab) 40 mg PO DAILY [facility] Last Admin: 02/28/18 10:21 Dose: Not Given Ranolazine (Ranexa) 500 mg PO BID [facility] Last Admin: 02/28/18 10:20 Dose: 500 mg Rosuvastatin Calcium (Crestor) 5 mg PO HS [facility] Last Admin: 02/27/18 21:50 Dose: 5 mg - Labs Labs: 02/28/18 08:32 02/28/18 08:32 PT 10.8 SECONDS (9.7-12.2) 02/27/18 06:38 INR 1.0 02/27/18 06:38 APTT 38 SECONDS (21-34) H 02/27/18 06:38 - Constitutional Appears: Well - Head Exam Head Exam: ATRAUMATIC, NORMAL INSPECTION, NORMOCEPHALIC - Eye Exam Eye Exam: EOMI, Normal appearance, PERRL Pupil Exam: NORMAL ACCOMODATION, PERRL - ENT Exam ENT Exam: Mucous Membranes Moist, Normal Exam - Neck Exam Neck Exam: Full ROM, Normal Inspection. absent: Lymphadenopathy - Respiratory Exam Respiratory Exam: Decreased Breath Sounds - Cardiovascular Exam Cardiovascular Exam: REGULAR RHYTHM, +S1, +S2 - GI/Abdominal Exam GI & Abdominal Exam: Soft, Diminished Bowel Sounds - Rectal Exam Rectal Exam: Deferred
[2018-03-01] MEDS: Albuterol-Ipratrop 3 mg / 0.5 (3 ml) UD INH SCH ×3 (01:17→13:34)
[2018-03-01 08:06] VITALS: RESP 18; TEMP 97.9; O2SAT 100
[2018-03-01] MEDS: (Novolog) Insulin Aspart, Recombinant 100 u/ml 10 ml vial SC SCH (08:21)
[2018-03-01] MEDS: Ranolazine 500 mg Extended Release Tablets PO SCH (11:21)
[2018-03-01] MEDS: Multiple Vitamins Tab PO SCH (11:21)
[2018-03-01] MEDS: Pantoprazole 40 mg EC Tab PO SCH (11:22)
[2018-03-01 11:30] VITALS: BP 143/81
[2018-03-01 12:18] VITALS: PULSE 68
--- NOTE | 2018-03-01 12:20 | CARD ---
APPROVED REPORT Date of service: 02/27/2018 EKG Measurement Heart [id number] <Conclusion> Atrial fibrillation Right axis deviation Low voltage QRS Cannot rule out Anteroseptal infarct, age undetermined Abnormal ECG
--- NOTE | 2018-03-01 15:33 | IP.NPCORE ---
Heart Failure Core Measure - Heart Failure Ejection Fraction: 40 % or Greater GEORGINA Inhibitor Prescribed: No Contraindication/Reason for not providing: on georgina Beta-Rachel Prescribed: Metoprolol Succinate Angiotensin II Receptor Rachel Prescribed: Yes AnticoagulationTherapy for Atrial Fibrillation/Atrialflutter: Yes Aldosterone Antagonist Prescribed: No Contraindication/Reason for not providing: ef>45 Hydralazine Nitrate Prescribed: No Contraindication/Reason for not providing: ef.45 Implantable Cardioverter Defibrillator Therapy: No Contraindication/Reason for not providing: f>45 - Follow up Will be discharged to: Home Follow Up Date (must be within 7 days from discharge): 03/05/18 Follow Up Time: 09:00
--- NOTE | 2018-03-01 15:33 | CP.PCM.PN ---
Subjective - Date & Time of Evaluation Date of Evaluation: 03/01/18 Time of Evaluation: 11:30 - Subjective Subjective: Patient seen and examined today, denies any cjhest pain, sob, palpitations, dizziness, abdominal pain Objective - Vital Signs/Intake and Output Vital Signs (last 24 hours): Temp Pulse Resp BP Pulse Ox 97.9 F 68 18 143/81 100 03/01/18 07:00 03/01/18 12:04 03/01/18 07:00 03/01/18 11:21 03/01/18 07:00 - Medications Medications: Current Medications Albuterol/Ipratropium (Duoneb 3 Mg/0.5 Mg (3 Ml) Ud) 3 ml INH RQ6 [facility] Last Admin: 03/01/18 13:34 Dose: 3 ml Amlodipine Besylate (Norvasc) 5 mg PO DAILY [facility] Last Admin: 03/01/18 11:21 Dose: 5 mg Apixaban (Eliquis) 2.5 mg PO BID [facility] Last Admin: 03/01/18 11:22 Dose: 2.5 mg Ascorbic Acid (Vitamin C 500 Mg Tab) 500 mg PO DAILY [facility] Last Admin: 03/01/18 11:22 Dose: 500 mg Aspirin (Ecotrin) 81 mg PO DAILY [facility] Last Admin: 03/01/18 11:22 Dose: 81 mg Dextrose (Dextrose 50% Inj) 0 ml IV STAT PRN; Protocol PRN Reason: Hypoglycemia Protocol Dextrose (Glutose 15) 0 gm PO ONCE PRN; Protocol PRN Reason: Hypoglycemia Protocol Ferrous Sulfate (Feosol) 325 mg PO DAILY [facility] Last Admin: 03/01/18 11:22 Dose: 325 mg Furosemide (Lasix) 40 mg IVP DAILY [facility] Last Admin: 03/01/18 11:21 Dose: 40 mg Glucagon (Glucagen Diagnostic Kit) 0 mg IM STAT PRN; Protocol PRN Reason: Hypoglycemia Protocol Dextrose (Dextrose 5% In Water 1000 Ml) 1,000 mls @ 0 mls/hr IV .Q0M PRN; Protocol; Per Protocol PRN Reason: Hypoglycemia Protocol Insulin Aspart (Novolog) 0 unit SC ACHS [facility] PRN Reason: Protocol Last Admin: 03/01/18 08:21 Dose: Not Given Isosorbide Mononitrate (Imdur Er) 30 mg PO DAILY [facility] Last Admin: 03/01/18 11:22 Dose: 30 mg Losartan Potassium (Cozaar) 25 mg PO DAILY [facility] Last Admin: 03/01/18 11:22 Dose: 25 mg Metoprolol Tartrate (Lopressor) 25 mg PO DAILY [facility] Last Admin: 03/01/18 11:21 Dose: 25 mg Multivitamins (Hexavitamin) 1 tab PO DAILY [facility] Last Admin: 03/01/18 11:21 Dose: 1 tab Pantoprazole Sodium (Protonix Ec Tab) 40 mg PO DAILY [facility] Last Admin: 03/01/18 11:22 Dose: 40 mg Ranolazine (Ranexa) 500 mg PO BID [facility] Last Admin: 03/01/18 11:21 Dose: 500 mg Rosuvastatin Calcium (Crestor) 5 mg PO HS [facility] Last Admin: 02/28/18 21:47 Dose: 5 mg Sitagliptin Phosphate (Januvia) 25 mg PO DAILY [facility] Last Admin: 03/01/18 11:22 Dose: 25 mg - Labs Labs: 02/28/18 08:32 02/28/18 08:32 PT 10.8 SECONDS (9.7-12.2) 02/27/18 06:38 INR 1.0 02/27/18 06:38 APTT 38 SECONDS (21-34) H 02/27/18 06:38 Assessment and Plan - Assessment and Plan (Free Text) Assessment: A/P 87 yr old female with pmhx of Asthma, Atrial Fibrillation, CHF, Diabetes, HTN, Hypercholesterolemia admitted with sob/ CHF patient clinically improved with lasix IV seen by Dr. Martinez, cleared fro discharge home today from cardiology stand point and stress out patient seen by Dr. Mike stable for discharge home today and f/u with Dr. Ester corey office in 3-5 days Discharge plan discussed with patient and son at bed side , who understands and agrees with plan
--- NOTE | 2018-03-01 20:45 | CP.PCM.PN ---
Subjective - Date & Time of Evaluation Date of Evaluation: 03/01/18 Time of Evaluation: 12:45 - Subjective Subjective: clinically same Objective - Vital Signs/Intake and Output Vital Signs (last 24 hours): Temp Pulse Resp BP Pulse Ox 97.9 F 68 18 143/81 100 03/01/18 07:00 03/01/18 12:04 03/01/18 07:00 03/01/18 11:21 03/01/18 07:00 - Labs Labs: 02/28/18 08:32 02/28/18 08:32 PT 10.8 SECONDS (9.7-12.2) 02/27/18 06:38 INR 1.0 02/27/18 06:38 APTT 38 SECONDS (21-34) H 02/27/18 06:38
== END 2018-03-01 16:20 | disposition home or self-care (01) | DRG 292 ==
LOC: C.ER 06:16 → C.9E 06:35 → C.6T 10:38
PROVIDERS: ADMIT Internal Medicine Nephrology; ATTEND Internal Medicine Nephrology
DX: I11.0 Hypertensive heart disease with heart failure (principal); J44.1 Chronic obstructive pulmonary disease with (acute) exacerbation; I50.33 Acute on chronic diastolic (congestive) heart failure; I48.91 Unspecified atrial fibrillation; E78.00 Pure hypercholesterolemia, unspecified; E11.9 Type 2 diabetes mellitus without complications

== ENCOUNTER 2018-05-21 04:33 | Observation (INO) | payer MEDICARE, MEDICAID ==
[2018-05-21 04:33] VITALS: PULSE 76; BMI 36.6
[~2018-05-21 04:33] MED LIST: Nitroglycerin 50mg in D5W 50 MG/250 ML BOTTLE IV SCH
[2018-05-21 05:09] LABS: BASO # 0.1 K/uL (0.0-0.2); BASO % 0.9 % (0.0-2.0); EOS # 0.2 K/uL (0.0-0.7); EOS % 2.3 % (0.0-4.0); HEMOGLOBIN 11.4 g/dL (11.0-16.0); LYMPH # 3.9 K/uL (1.0-4.3); LYMPH % 36.2 % (20.0-40.0); MEAN CELL VOLUME 84.5 fL (81.0-99.0); MEAN PLATELET VOLUME 12.1 fL (7.2-11.7); MONO # 0.6 K/uL (0.0-0.8); MONO % 5.5 % (0.0-10.0); NEUT # 5.9 K/uL (1.8-7.0); NEUT % 55.1 % (50.0-75.0); RBC 4.23 Mil/uL (3.80-5.20); RED CELL DISTRIBUTION WIDTH 17.4 % (11.5-14.5); WHITE BLOOD COUNT 10.7 K/uL (4.8-10.8)
[2018-05-21 05:22] LABS: INR 1.2; PROTHROMBIN TIME 12.7 SECONDS (9.7-12.2)
[2018-05-21 05:40] LABS: ALB/GLOB RATIO 1.3 (1.0-2.1); ALBUMIN 4.6 g/dL (3.5-5.0); ALT/SGPT 20 U/L (9-52); AST/SGOT 26 U/L (14-36); BLOOD UREA NITROGEN 18 mg/dL (7-17); CALCIUM 9.7 mg/dl (8.6-10.4); GFR NON-AFRICAN AMERICAN 59
[2018-05-21 05:51] LABS: B-TYPE NATRIURETIC PEPTIDE 2070 pg/mL (0-900)
[2018-05-21] MEDS ORDERED: Sod Polystyrene Sulf 15 gm/60 ml Susp PO STA (06:11)
--- NOTE | 2018-05-21 06:39 | C.PDOC ---
History Of Present Illness 87 y/o female presents to the ED with complaints of SOB, consistent with prior exacerbations of CHF. Patient was given nitro drip and Lasix by EMS in the field. Upon arrival patient reports improvement. Otherwise she denies any chest pain, fever, cough, vomiting, or abdominal pain. Time Seen by Provider: 05/21/18 04:55 Chief Complaint (Nursing): Shortness Of Breath History Per: Patient History/Exam Limitations: no limitations Onset/Duration Of Symptoms: Hrs Current Symptoms Are (Timing): Still Present Past Medical History Reviewed: Historical Data, Nursing Documentation, Vital Signs Vital Signs: Last Vital Signs Temp 98.2 F 05/21/18 06:27 Pulse 79 05/21/18 06:27 Resp 18 05/21/18 06:27 BP 113/60 05/21/18 06:27 Pulse Ox 100 05/21/18 06:27 - Medical History PMH: Asthma, Atrial Fibrillation, CHF, Diabetes, HTN, Hypercholesterolemia Denies: Chronic Kidney Disease Surgical History: Coronary Stent - [facility] Procedures ASSISTANCE WITH RESPIRATORY VENTILATION, 24-96 HRS, CPAP (11/17/15) ASSISTANCE WITH RESPIRATORY VENTILATION, <24 HRS, CPAP (05/02/16) Family History: States: Unknown Family Hx - Social History Hx Tobacco Use: No Hx Alcohol Use: No Hx Substance Use: No - Immunization History Hx Tetanus Toxoid Vaccination: No Hx Influenza Vaccination: Yes Hx Pneumococcal Vaccination: No Review Of Systems Constitutional: Negative for: Fever, Chills Cardiovascular: Negative for: Chest Pain Respiratory: Positive for: Shortness of Breath. Negative for: Cough Gastrointestinal: Negative for: Nausea, Vomiting, Abdominal Pain Neurological: Negative for: Headache, Dizziness Physical Exam - Physical Exam Appears: Non-toxic, No Acute Distress Skin: Normal Color, Warm, Dry Head: Atraumatic, Normacephalic Eye(s): bilateral: Normal Inspection, PERRL, EOMI Neck: Normal ROM, Supple Chest: Symmetrical Cardiovascular: Rhythm Irregular (irregularly irregular) Respiratory: Rales (one quarter of the way up bilaterally ), No Wheezing Gastrointestinal/Abdominal: Soft, No Tenderness, No Distention Extremity: Bilateral: Atraumatic, Normal Color And Temperature, Normal ROM Pulses: Left Dorsalis Pedis: Normal, Right Dorsalis Pedis: Normal Neurological/Psych: Oriented x3, Normal Speech ED Course And Treatment - Laboratory Results Result Diagrams: 05/21/18 05:07 05/21/18 05:07 ECG: Interpreted By Me, Viewed By Me ECG Rhythm: Atrial Fibrillation Rate From EC (bpm) O2 Sat by Pulse Oximetry: 100 (RA) Pulse Ox Interpretation: Normal Medical Decision Making Medical Decision Making: Impression: Shortness of breath Initial Plan: --EKG --labs --chest x-ray --20 mg Pepcid IVP --Lasix 20 mg IVP --Nitro drip --peak flow pre/post neb Progress: Labs reviewed. 6:12am Spoke to Dr. Ester Menendez, accepts patient for admission Disposition Discussed With DrArabella: Garcia Menendez Doctor Will See Patient In The: Hospital Counseled Patient/Family Regarding: Studies Performed, Diagnosis - Disposition Disposition: HOSPITALIZED Disposition Time: 06:12 Condition: STABLE - POA Present On Arrival: None - Clinical Impression Clinical Impression: CHF (congestive heart failure) - Scribe Statement The provider has reviewed the documentation as recorded by the Scribe (Meeta Suarez) Provider Attestation: All medical record entries made by the Scribe were at my direction and personally dictated by me. I have reviewed the chart and agree that the record accurately reflects my personal performance of the history, physical exam, medi harleen decision making, and the department course for this patient. I have also personally directed, reviewed, and agree with the discharge instructions and disposition.
[2018-05-21] MEDS ORDERED: Sod Polystyrene Sulf 15 gm/60 ml Susp ONE (06:45)
[2018-05-21 07:38] LABS: SQUAMOUS EPITHIAL 1 /hpf (0-5); URINE BACTERIA RARE (<OCC); URINE BILIRUBIN NEGATIVE (NEGATIVE); URINE BLOOD NEGATIVE (NEGATIVE); URINE CLARITY Clear (Clear); URINE COLOR Straw (YELLOW); URINE GLUCOSE (UA) NORMAL (Normal); URINE LEUKOCYTE ESTERASE NEG Leu/uL (Negative); URINE PROTEIN 1+ mg/dL (NEGATIVE); URINE UROBILINOGEN NORMAL mg/dL (0.2-1.0)
--- NOTE | 2018-05-21 09:19 | RAD ---
Chest x-ray single frontal view HISTORY: Shortness of breath. COMPARISON: 02/27/2018 Findings: Biapical pleural thickening with upper lobe granulomatous changes. Prominent diffuse increased interstitial lung markings bilaterally suggestive for edema and or infiltrate. Right hilar prominence/consolidation. Patchy increased markings at the left lung base. Few scattered nodular densities in the left hemithorax. Cardiomegaly. Calcification within the aorta and at the aortic knob. Degenerative changes in the spine and shoulders. Impression: Biapical pleural thickening with upper lobe granulomatous changes. Prominent diffuse increased interstitial lung markings bilaterally suggestive for edema and or infiltrate. Right hilar prominence/consolidation. Patchy increased markings at the left lung base. Few scattered nodular densities in the left hemithorax. Cardiomegaly. Calcification within the aorta and at the aortic knob.
--- NOTE | 2018-05-21 15:59 | CP.PCM.HP ---
Past Patient History - Infectious Disease Hx of Infectious Diseases: None - Past Medical History & Family History Past Medical History?: Yes - Past Social History Smoking Status: Never Smoked - CARDIAC Hx Atrial Fibrillation: Yes Hx Congestive Heart Failure: Yes Hx Hypercholesterolemia: Yes Hx Hypertension: Yes - PULMONARY Hx Asthma: Yes - NEUROLOGICAL Hx Neurological Disorder: Yes - HEENT Hx HEENT Problems: No - RENAL Hx Chronic Kidney Disease: No - ENDOCRINE/METABOLIC Hx Endocrine Disorders: Yes Hx Diabetes Mellitus Type 2: Yes - HEMATOLOGICAL/ONCOLOGICAL Hx Blood Disorders: No - INTEGUMENTARY Hx Dermatological Problems: No - MUSCULOSKELETAL/RHEUMATOLOGICAL Hx Falls: No - GASTROINTESTINAL Hx Gastrointestinal Disorders: No - GENITOURINARY/GYNECOLOGICAL Hx Genitourinary Disorders: No - PSYCHIATRIC Hx Substance Use: No - SURGICAL HISTORY Hx Coronary Stent: Yes - ANESTHESIA Hx Anesthesia: No Hx Anesthesia Reactions: No Hx Malignant Hyperthermia: No Meds Allergies/Adverse Reactions: Allergies Allergy/AdvReac Type Severity Reaction Status Date / Time diltiazem HCl [From Cardizem] Allergy RASH Verified 05/21/18 04:56 garlic AdvReac Verified 05/21/18 04:56 onion AdvReac Verified 05/21/18 04:56 Physical Exam - Constitutional Appears: Well - Head Exam Head Exam: ATRAUMATIC, NORMAL INSPECTION, NORMOCEPHALIC - Eye Exam Eye Exam: EOMI, Normal appearance, PERRL Pupil Exam: NORMAL ACCOMODATION, PERRL - ENT Exam ENT Exam: Mucous Membranes Moist, Normal Exam - Neck Exam Neck exam: Positive for: Normal Inspection - Respiratory Exam Respiratory Exam: Decreased Breath Sounds - Cardiovascular Exam Cardiovascular Exam: REGULAR RHYTHM, +S1, +S2 - GI/Abdominal Exam GI & Abdominal Exam: Diminished Bowel Sounds, Soft - Rectal Exam Rectal Exam: Deferred Results - Vital Signs Recent Vital Signs: Last Vital Signs Temp 97.8 F 05/21/18 15:00 Pulse 71 05/21/18 15:51 Resp 18 05/21/18 15:00 BP 149/77 05/21/18 15:00 Pulse Ox 99 05/21/18 15:48 - Labs Result Diagrams: 05/21/18 05:07 05/21/18 05:07 Labs: Laboratory Results - last 24 hr 05/21/18 05/21/18 05/21/18 05:07 05:07 05:07 WBC 10.7 RBC 4.23 Hgb 11.4 Hct 35.7 MCV 84.5 D MCH 27.0 MCHC 32.0 L RDW 17.4 H Plt Count 152 MPV 12.1 H Neut % (Auto) 55.1 Lymph % (Auto) 36.2 Cobb % (Auto) 5.5 Eos % (Auto) 2.3 Baso % (Auto) 0.9 Neut # (Auto) 5.9 Lymph # (Auto) 3.9 Cobb # (Auto) 0.6 Eos # (Auto) 0.2 Baso # (Auto) 0.1 PT 12.7 H INR 1.2 APTT 42 H Sodium 141 Potassium 5.5 H Chloride 106 Carbon Dioxide 26 Anion Gap 15 BUN 18 H Creatinine 0.9 Est GFR ( Amer) > 60 Est GFR (Non-Af Amer) 59 POC Glucose (mg/dL) Random Glucose 110 H Calcium 9.7 Total Bilirubin 0.8 AST 26 ALT 20 Alkaline Phosphatase 82 Troponin I < 0.0120 NT-Pro-B Natriuret Pep 2070 H Total Protein 8.0 Albumin 4.6 Globulin 3.5 Albumin/Globulin Ratio 1.3 Urine Color Urine Clarity Urine pH Ur Specific Rea Urine Protein Urine Glucose (UA) Urine Ketones Urine Blood Urine Nitrate Urine Bilirubin Urine Urobilinogen Ur Leukocyte Esterase Urine WBC (Auto) Urine RBC (Auto) Ur Squamous Epith Cells Urine Bacteria 05/21/18 05/21/18 05:37 07:21 WBC RBC Hgb Hct MCV MCH MCHC RDW Plt Count MPV Neut % (Auto) Lymph % (Auto) Cobb % (Auto) Eos % (Auto) Baso % (Auto) Neut # (Auto) Lymph # (Auto) Cobb # (Auto) Eos # (Auto) Baso # (Auto) PT INR APTT Sodium Potassium Chloride Carbon Dioxide Anion Gap BUN Creatinine Est GFR ( Amer) Est GFR (Non-Af Amer) POC Glucose (mg/dL) 134 H Random Glucose Calcium Total Bilirubin AST ALT Alkaline Phosphatase Troponin I NT-Pro-B Natriuret Pep Total Protein Albumin Globulin Albumin/Globulin Ratio Urine Color Straw Urine Clarity Clear Urine pH 6.0 Ur Specific Rea 1.006 Urine Protein 1+ H Urine Glucose (UA) Normal Urine Ketones Negative Urine Blood Negative Urine Nitrate Negative Urine Bilirubin Negative Urine Urobilinogen Normal Ur Leukocyte Esterase Neg Urine WBC (Auto) 1 Urine RBC (Auto) 1 Ur Squamous Epith Cells 1 Urine Bacteria Rare
--- NOTE | 2018-05-21 17:26 | CP.PCM.CON ---
Past Patient History - Infectious Disease Hx of Infectious Diseases: None - Past Medical History & Family History Past Medical History?: Yes - Past Social History Smoking Status: Never Smoked - CARDIAC Hx Atrial Fibrillation: Yes Hx Congestive Heart Failure: Yes Hx Hypercholesterolemia: Yes Hx Hypertension: Yes - PULMONARY Hx Asthma: Yes - NEUROLOGICAL Hx Neurological Disorder: Yes - HEENT Hx HEENT Problems: No - RENAL Hx Chronic Kidney Disease: No - ENDOCRINE/METABOLIC Hx Endocrine Disorders: Yes Hx Diabetes Mellitus Type 2: Yes - HEMATOLOGICAL/ONCOLOGICAL Hx Blood Disorders: No - INTEGUMENTARY Hx Dermatological Problems: No - MUSCULOSKELETAL/RHEUMATOLOGICAL Hx Falls: No - GASTROINTESTINAL Hx Gastrointestinal Disorders: No - GENITOURINARY/GYNECOLOGICAL Hx Genitourinary Disorders: No - PSYCHIATRIC Hx Substance Use: No - SURGICAL HISTORY Hx Coronary Stent: Yes - ANESTHESIA Hx Anesthesia: No Hx Anesthesia Reactions: No Hx Malignant Hyperthermia: No Meds Allergies/Adverse Reactions: Allergies Allergy/AdvReac Type Severity Reaction Status Date / Time diltiazem HCl [From Cardizem] Allergy RASH Verified 05/21/18 04:56 garlic AdvReac Verified 05/21/18 04:56 onion AdvReac Verified 05/21/18 04:56 - Medications Medications: Current Medications Amlodipine Besylate (Norvasc) 5 mg PO DAILY [facility] Apixaban (Eliquis) 2.5 mg PO BID [facility] Ascorbic Acid (Vitamin C 500 Mg Tab) 500 mg PO DAILY [facility] Aspirin (Ecotrin) 81 mg PO DAILY [facility] Ferrous Sulfate (Feosol) 325 mg PO DAILY [facility] Furosemide (Lasix) 40 mg IVP BID [facility] Influenza Virus Vaccine (Fluzone Quad [id number]) 60 mcg IM .ONCE ONE Stop: 05/23/18 10:01 Isosorbide Mononitrate (Imdur Er) 30 mg PO DAILY [facility] Losartan Potassium (Cozaar) 25 mg PO DAILY [facility] Metoprolol Tartrate (Lopressor) 25 mg PO DAILY [facility] Multivitamins (Hexavitamin) 1 tab PO DAILY [facility] Pantoprazole Sodium (Protonix Ec Tab) 40 mg PO DAILY [facility] Potassium Chloride (Klor-Con 10) 10 meq PO MWF [facility] Ranolazine (Ranexa) 500 mg PO BID [facility] Rosuvastatin Calcium (Crestor) 5 mg PO HS [facility] Sitagliptin Phosphate (Januvia) 25 mg PO DAILY [facility] Results - Vital Signs Recent Vital Signs: Last Vital Signs Temp 97.8 F 05/21/18 15:00 Pulse 71 05/21/18 15:51 Resp 18 05/21/18 15:00 BP 149/77 05/21/18 15:00 Pulse Ox 99 05/21/18 15:48 - Labs Result Diagrams: 05/21/18 05:07 05/21/18 05:07 Labs: Laboratory Results - last 24 hr 05/21/18 05/21/18 05/21/18 05:07 05:07 05:07 WBC 10.7 RBC 4.23 Hgb 11.4 Hct 35.7 MCV 84.5 D MCH 27.0 MCHC 32.0 L RDW 17.4 H Plt Count 152 MPV 12.1 H Neut % (Auto) 55.1 Lymph % (Auto) 36.2 [place] % (Auto) 5.5 Eos % (Auto) 2.3 Baso % (Auto) 0.9 Neut # (Auto) 5.9 Lymph # (Auto) 3.9 [place] # (Auto) 0.6 Eos # (Auto) 0.2 Baso # (Auto) 0.1 PT 12.7 H INR 1.2 APTT 42 H Sodium 141 Potassium 5.5 H Chloride 106 Carbon Dioxide 26 Anion Gap 15 BUN 18 H Creatinine 0.9 Est GFR ( Amer) > 60 Est GFR (Non-Af Amer) 59 POC Glucose (mg/dL) Random Glucose 110 H Calcium 9.7 Total Bilirubin 0.8 AST 26 ALT 20 Alkaline Phosphatase 82 Troponin I < 0.0120 NT-Pro-B Natriuret Pep 2070 H Total Protein 8.0 Albumin 4.6 Globulin 3.5 Albumin/Globulin Ratio 1.3 Urine Color Urine Clarity Urine pH Ur Specific [place] Urine Protein Urine Glucose (UA) Urine Ketones Urine Blood Urine Nitrate Urine Bilirubin Urine Urobilinogen Ur Leukocyte Esterase Urine WBC (Auto) Urine RBC (Auto) Ur Squamous Epith Cells Urine Bacteria 05/21/18 05/21/18 05/21/18 05:37 07:21 16:39 WBC RBC Hgb Hct MCV MCH MCHC RDW Plt Count MPV Neut % (Auto) Lymph % (Auto) [place] % (Auto) Eos % (Auto) Baso % (Auto) Neut # (Auto) Lymph # (Auto) [place] # (Auto) Eos # (Auto) Baso # (Auto) PT INR APTT Sodium Potassium Chloride Carbon Dioxide Anion Gap BUN Creatinine Est GFR ( Amer) Est GFR (Non-Af Amer) POC Glucose (mg/dL) 134 H 122 H Random Glucose Calcium Total Bilirubin AST ALT Alkaline Phosphatase Troponin I NT-Pro-B Natriuret Pep Total Protein Albumin Globulin Albumin/Globulin Ratio Urine Color Straw Urine Clarity Clear Urine pH 6.0 Ur Specific [place]urelia 1.006 Urine Protein 1+ H Urine Glucose (UA) Normal Urine Ketones Negative Urine Blood Negative Urine Nitrate Negative Urine Bilirubin Negative Urine Urobilinogen Normal Ur Leukocyte Esterase Neg Urine WBC (Auto) 1 Urine RBC (Auto) 1 Ur Squamous Epith Cells 1 Urine Bacteria Rare
[2018-05-21] MEDS: Ranolazine 500 mg Extended Release Tablets PO SCH (17:57)
[2018-05-22] MEDS: Multiple Vitamins Tab PO SCH (09:51)
[2018-05-22] MEDS: Pantoprazole 40 mg EC Tab PO SCH (09:52)
[2018-05-22] MEDS: Ranolazine 500 mg Extended Release Tablets PO SCH ×2 (09:52→18:34)
[2018-05-22] MEDS: Potassium Chloride 10 mEq ER Tab PO SCH ×2 (09:52→09:58)
--- NOTE | 2018-05-22 11:41 | CP.PCM.CON ---
History of Present Illness - History of Present Illness History of Present Illness: CC: Shortness of Breath HPI: 87 year old female with following chronic medical conditions 1. Atrial fibrillation stable on anticoagulation and rate control 2. DM chronic and stable on januvia 3. HTN is chronic and stable on furosemide, amlodipine, metoprolol, losartan 4. Chronic stable angina on nitrates and ranexa Review of Systems - Review of Systems All systems: reviewed and no additional remarkable complaints except Past Patient History - Infectious Disease Hx of Infectious Diseases: None - Past Medical History & Family History Past Medical History?: Yes - Past Social History Smoking Status: Never Smoked - CARDIAC Hx Atrial Fibrillation: Yes Hx Congestive Heart Failure: Yes Hx Hypercholesterolemia: Yes Hx Hypertension: Yes - PULMONARY Hx Asthma: Yes - NEUROLOGICAL Hx Neurological Disorder: Yes - HEENT Hx HEENT Problems: No - RENAL Hx Chronic Kidney Disease: No - ENDOCRINE/METABOLIC Hx Endocrine Disorders: Yes Hx Diabetes Mellitus Type 2: Yes - HEMATOLOGICAL/ONCOLOGICAL Hx Blood Disorders: No - INTEGUMENTARY Hx Dermatological Problems: No - MUSCULOSKELETAL/RHEUMATOLOGICAL Hx Falls: No - GASTROINTESTINAL Hx Gastrointestinal Disorders: No - GENITOURINARY/GYNECOLOGICAL Hx Genitourinary Disorders: No - PSYCHIATRIC Hx Substance Use: No - SURGICAL HISTORY Hx Coronary Stent: Yes - ANESTHESIA Hx Anesthesia: No Hx Anesthesia Reactions: No Hx Malignant Hyperthermia: No Meds Allergies/Adverse Reactions: Allergies Allergy/AdvReac Type Severity Reaction Status Date / Time diltiazem HCl [From Cardizem] Allergy RASH Verified 05/21/18 04:56 garlic AdvReac Verified 05/21/18 04:56 onion AdvReac Verified 05/21/18 04:56 - Medications Medications: Current Medications Amlodipine Besylate (Norvasc) 5 mg PO DAILY [facility] Last Admin: 05/22/18 09:52 Dose: 5 mg Apixaban (Eliquis) 2.5 mg PO BID [facility] Last Admin: 05/22/18 09:52 Dose: 2.5 mg Ascorbic Acid (Vitamin C 500 Mg Tab) 500 mg PO DAILY [facility] Last Admin: 05/22/18 09:51 Dose: 500 mg Aspirin (Ecotrin) 81 mg PO DAILY [facility] Last Admin: 05/22/18 09:52 Dose: 81 mg Ferrous Sulfate (Feosol) 325 mg PO DAILY [facility] Last Admin: 05/22/18 09:51 Dose: 325 mg Furosemide (Lasix) 40 mg IVP BID [facility] Last Admin: 05/22/18 09:50 Dose: 40 mg Influenza Virus Vaccine (Fluzone Quad [id number]) 60 mcg IM .ONCE ONE Stop: 05/23/18 10:01 Isosorbide Mononitrate (Imdur Er) 30 mg PO DAILY [facility] Last Admin: 05/22/18 09:52 Dose: 30 mg Losartan Potassium (Cozaar) 25 mg PO DAILY [facility] Last Admin: 05/22/18 09:51 Dose: 25 mg Metoprolol Tartrate (Lopressor) 25 mg PO DAILY [facility] Last Admin: 05/22/18 09:52 Dose: 25 mg Multivitamins (Hexavitamin) 1 tab PO DAILY [facility] Last Admin: 05/22/18 09:51 Dose: 1 tab Pantoprazole Sodium (Protonix Ec Tab) 40 mg PO DAILY [facility] Last Admin: 05/22/18 09:52 Dose: 40 mg Potassium Chloride (Klor-Con 10) 10 meq PO MWF [facility] Last Admin: 05/22/18 09:58 Dose: Not Given Ranolazine (Ranexa) 500 mg PO BID [facility] Last Admin: 05/22/18 09:52 Dose: 500 mg Rosuvastatin Calcium (Crestor) 5 mg PO [facility] Sitagliptin Phosphate (Januvia) 25 mg PO DAILY [facility] Last Admin: 05/22/18 09:51 Dose: 25 mg Physical Exam - Constitutional Appears: Well, Non-toxic - Head Exam Head Exam: ATRAUMATIC, NORMAL INSPECTION - Eye Exam Eye Exam: PERRL. absent: Scleral icterus - ENT Exam ENT Exam: Mucous Membranes Moist, Normal External Ear Exam - Neck Exam Neck exam: Negative for: Lymphadenopathy, Thyromegaly - Respiratory Exam Respiratory Exam: Wheezes, NORMAL BREATHING PATTERN - Cardiovascular Exam Cardiovascular Exam: Bradycardia, Tachycardia, Irregular Rhythm, +S1, +S2, +S4, Systolic Murmur. absent: JVD - GI/Abdominal Exam GI & Abdominal Exam: Normal Bowel Sounds. absent: Organomegaly - Extremities Exam Extremities exam: Negative for: calf tenderness, pedal edema - Neurological Exam Neurological exam: Alert, CN II-XII Intact, Normal Gait, Oriented x3, Reflexes Normal - Psychiatric Exam Psychiatric exam: Normal Affect, Normal Mood Results - Vital Signs Recent Vital Signs: Last Vital Signs Temp 98.1 F 05/22/18 07:00 Pulse 91 H 05/22/18 07:44 Resp 18 05/22/18 07:00 BP 142/72 05/22/18 09:52 Pulse Ox 99 05/22/18 07:44 - Labs Result Diagrams: 05/21/18 05:07 05/21/18 05:07 Labs: Laboratory Results - last 24 hr 05/21/18 05/21/18 05/22/18 16:39 21:16 06:15 POC Glucose (mg/dL) 122 H 176 H 134 H 05/22/18 10:54 POC Glucose (mg/dL) 281 H - EKG Data EKG Interpreted by: Myself (Atrial fibrillation) - Imaging and Cardiology Chest x-ray Status: Image reviewed by me (Right middle lobe infiltrate) Assessment & Plan - Assessment and Plan (Free Text) Assessment: 87 year old female with shortness of breath suspicious for pneumonia with CXR findings, clinically not appearing to be infected, continue to monitor Chronic diastolic CHF - continue lasix Chronic atrial fibrillation on NOAC for CVA prophylaxsis; due to her frailty this is no plan for rhythm control strategy at this point. Mitral stenosis is chronic and mild in severity continue current management Diabetes is chronic and stable on januvia Chronic stable angina on ranexa and imdur; check serial trop and EKG to rule out an ischemic etiology this admission
--- NOTE | 2018-05-22 13:24 | CARD ---
APPROVED REPORT Date of service: 05/21/2018 EKG Measurement Heart [id number] <Conclusion> Atrial fibrillation Low voltage QRS Left posterior fascicular block Cannot rule out Anteroseptal infarct, age undetermined Abnormal ECG
--- NOTE | 2018-05-22 14:57 | CP.PCM.PN ---
Subjective - Date & Time of Evaluation Date of Evaluation: 05/22/18 Time of Evaluation: 14:57 Objective - Vital Signs/Intake and Output Vital Signs (last 24 hours): Temp Pulse Resp BP Pulse Ox 98.1 F 87 18 142/72 99 05/22/18 07:00 05/22/18 12:04 05/22/18 07:00 05/22/18 09:52 05/22/18 12:04 Intake and Output: 05/22/18 05/22/18 06:59 18:59 Intake Total 240 Balance 240 - Medications Medications: Current Medications Amlodipine Besylate (Norvasc) 5 mg PO DAILY [facility] Last Admin: 05/22/18 09:52 Dose: 5 mg Apixaban (Eliquis) 2.5 mg PO BID [facility] Last Admin: 05/22/18 09:52 Dose: 2.5 mg Ascorbic Acid (Vitamin C 500 Mg Tab) 500 mg PO DAILY [facility] Last Admin: 05/22/18 09:51 Dose: 500 mg Aspirin (Ecotrin) 81 mg PO DAILY [facility] Last Admin: 05/22/18 09:52 Dose: 81 mg Ferrous Sulfate (Feosol) 325 mg PO DAILY [facility] Last Admin: 05/22/18 09:51 Dose: 325 mg Furosemide (Lasix) 40 mg IVP BID [facility] Last Admin: 05/22/18 09:50 Dose: 40 mg Influenza Virus Vaccine (Fluzone Quad [id number]) 60 mcg IM .ONCE ONE Stop: 05/23/18 10:01 Isosorbide Mononitrate (Imdur Er) 30 mg PO DAILY [facility] Last Admin: 05/22/18 09:52 Dose: 30 mg Losartan Potassium (Cozaar) 25 mg PO DAILY [facility] Last Admin: 05/22/18 09:51 Dose: 25 mg Metoprolol Tartrate (Lopressor) 25 mg PO DAILY [facility] Last Admin: 05/22/18 09:52 Dose: 25 mg Multivitamins (Hexavitamin) 1 tab PO DAILY [facility] Last Admin: 05/22/18 09:51 Dose: 1 tab Pantoprazole Sodium (Protonix Ec Tab) 40 mg PO DAILY [facility] Last Admin: 05/22/18 09:52 Dose: 40 mg Potassium Chloride (Klor-Con 10) 10 meq PO MWF [facility] Last Admin: 05/22/18 09:58 Dose: Not Given Ranolazine (Ranexa) 500 mg PO BID [facility] Last Admin: 05/22/18 09:52 Dose: 500 mg Rosuvastatin Calcium (Crestor) 5 mg PO [facility] Sitagliptin Phosphate (Januvia) 25 mg PO DAILY [facility] Last Admin: 05/22/18 09:51 Dose: 25 mg - Labs Labs: 05/21/18 05:07 05/21/18 05:07 PT 12.7 SECONDS (9.7-12.2) H 05/21/18 05:07 INR 1.2 05/21/18 05:07 APTT 42 SECONDS (21-34) H 05/21/18 05:07 Assessment and Plan (1) CHF (congestive heart failure) Status: Chronic (2) Chronic obstructive lung disease Status: Acute (3) Dyspnea Status: Acute (4) Diabetes Status: Chronic (5) HTN (hypertension) Status: Chronic
[2018-05-22 15:53] VITALS: RESP 20
--- NOTE | 2018-05-22 21:12 | CP.PCM.PN ---
Subjective - Date & Time of Evaluation Date of Evaluation: 05/22/18 Time of Evaluation: 09:15 - Subjective Subjective: clinically same Objective - Vital Signs/Intake and Output Vital Signs (last 24 hours): Temp Pulse Resp BP Pulse Ox 97.8 F 74 20 119/72 99 05/22/18 15:00 05/22/18 16:25 05/22/18 15:00 05/22/18 18:39 05/22/18 16:25 - Medications Medications: Current Medications Amlodipine Besylate (Norvasc) 5 mg PO DAILY [facility] Last Admin: 05/22/18 09:52 Dose: 5 mg Apixaban (Eliquis) 2.5 mg PO BID [facility] Last Admin: 05/22/18 18:34 Dose: 2.5 mg Ascorbic Acid (Vitamin C 500 Mg Tab) 500 mg PO DAILY [facility] Last Admin: 05/22/18 09:51 Dose: 500 mg Aspirin (Ecotrin) 81 mg PO DAILY [facility] Last Admin: 05/22/18 09:52 Dose: 81 mg Ferrous Sulfate (Feosol) 325 mg PO DAILY [facility] Last Admin: 05/22/18 09:51 Dose: 325 mg Furosemide (Lasix) 40 mg IVP BID [facility] Last Admin: 05/22/18 18:39 Dose: 40 mg Influenza Virus Vaccine (Fluzone Quad [id number]) 60 mcg IM .ONCE ONE Stop: 05/23/18 10:01 Isosorbide Mononitrate (Imdur Er) 30 mg PO DAILY [facility] Last Admin: 05/22/18 09:52 Dose: 30 mg Losartan Potassium (Cozaar) 25 mg PO DAILY [facility] Last Admin: 05/22/18 09:51 Dose: 25 mg Metoprolol Tartrate (Lopressor) 25 mg PO DAILY [facility] Last Admin: 05/22/18 09:52 Dose: 25 mg Multivitamins (Hexavitamin) 1 tab PO DAILY [facility] Last Admin: 05/22/18 09:51 Dose: 1 tab Pantoprazole Sodium (Protonix Ec Tab) 40 mg PO DAILY [facility] Last Admin: 05/22/18 09:52 Dose: 40 mg Potassium Chloride (Klor-Con 10) 10 meq PO MWF [facility] Last Admin: 05/22/18 09:58 Dose: Not Given Ranolazine (Ranexa) 500 mg PO BID [facility] Last Admin: 05/22/18 18:34 Dose: 500 mg Rosuvastatin Calcium (Crestor) 5 mg PO HS [facility] Sitagliptin Phosphate (Januvia) 25 mg PO DAILY [facility] Last Admin: 05/22/18 09:51 Dose: 25 mg - Labs Labs: 05/21/18 05:07 05/21/18 05:07 PT 12.7 SECONDS (9.7-12.2) H 05/21/18 05:07 INR 1.2 05/21/18 05:07 APTT 42 SECONDS (21-34) H 05/21/18 05:07
[2018-05-23] MEDS: Pantoprazole 40 mg EC Tab PO SCH (09:53)
[2018-05-23] MEDS: Ranolazine 500 mg Extended Release Tablets PO SCH (09:53)
[2018-05-23] MEDS: Multiple Vitamins Tab PO SCH (09:54)
[2018-05-23] MEDS ORDERED: Influenza Vaccine 60 MCG/0.5 ML SYR (3 yr & up) IM ONE (10:00)
--- NOTE | 2018-05-23 14:36 | CP.PCM.PN ---
Subjective - Date & Time of Evaluation Date of Evaluation: 05/23/18 Time of Evaluation: 14:36 Objective - Vital Signs/Intake and Output Vital Signs (last 24 hours): Temp Pulse Resp BP Pulse Ox 97.5 F L 94 H 20 140/70 96 05/23/18 07:15 05/23/18 13:00 05/23/18 07:15 05/23/18 09:54 05/23/18 07:15 Intake and Output: 05/23/18 05/23/18 06:59 18:59 Intake Total 300 Balance 300 - Medications Medications: Current Medications Amlodipine Besylate (Norvasc) 5 mg PO DAILY [facility] Last Admin: 05/23/18 09:53 Dose: 5 mg Apixaban (Eliquis) 2.5 mg PO BID [facility] Last Admin: 05/23/18 10:03 Dose: 2.5 mg Ascorbic Acid (Vitamin C 500 Mg Tab) 500 mg PO DAILY [facility] Last Admin: 05/23/18 09:53 Dose: 500 mg Aspirin (Ecotrin) 81 mg PO DAILY [facility] Last Admin: 05/23/18 09:53 Dose: 81 mg Ferrous Sulfate (Feosol) 325 mg PO DAILY [facility] Last Admin: 05/23/18 09:54 Dose: 325 mg Furosemide (Lasix) 40 mg IVP BID [facility] Last Admin: 05/23/18 09:53 Dose: 40 mg Isosorbide Mononitrate (Imdur Er) 30 mg PO DAILY [facility] Last Admin: 05/23/18 09:53 Dose: 30 mg Losartan Potassium (Cozaar) 25 mg PO DAILY [facility] Last Admin: 05/23/18 09:53 Dose: 25 mg Metoprolol Tartrate (Lopressor) 25 mg PO DAILY [facility] Last Admin: 05/23/18 09:54 Dose: 25 mg Multivitamins (Hexavitamin) 1 tab PO DAILY [facility] Last Admin: 05/23/18 09:54 Dose: 1 tab Pantoprazole Sodium (Protonix Ec Tab) 40 mg PO DAILY [facility] Last Admin: 05/23/18 09:53 Dose: 40 mg Potassium Chloride (Klor-Con 10) 10 meq PO MWF [facility] Last Admin: 05/22/18 09:58 Dose: Not Given Ranolazine (Ranexa) 500 mg PO BID [facility] Last Admin: 05/23/18 09:53 Dose: 500 mg Rosuvastatin Calcium (Crestor) 5 mg PO HS [facility] Last Admin: 05/22/18 21:25 Dose: 5 mg Sitagliptin Phosphate (Januvia) 25 mg PO DAILY [facility] Last Admin: 05/23/18 09:53 Dose: 25 mg - Labs Labs: 05/21/18 05:07 05/21/18 05:07 PT 12.7 SECONDS (9.7-12.2) H 05/21/18 05:07 INR 1.2 05/21/18 05:07 APTT 42 SECONDS (21-34) H 05/21/18 05:07 Assessment and Plan (1) CHF (congestive heart failure) Status: Chronic (2) Chronic obstructive lung disease Status: Acute (3) Dyspnea Status: Acute (4) Diabetes Status: Chronic (5) HTN (hypertension) Status: Chronic
[2018-05-23 16:21] VITALS: BP 132/77; TEMP 98; O2SAT 98
[2018-05-23 16:33] VITALS: PULSE 80
--- NOTE | 2018-05-23 16:55 | CP.PCM.PN ---
Subjective - Date & Time of Evaluation Date of Evaluation: 05/23/18 Time of Evaluation: 13:00 Objective - Vital Signs/Intake and Output Vital Signs (last 24 hours): Temp Pulse Resp BP Pulse Ox 98 F 80 20 132/77 98 05/23/18 15:00 05/23/18 16:00 05/23/18 15:00 05/23/18 15:00 05/23/18 15:00 Intake and Output: 05/23/18 05/23/18 06:59 18:59 Intake Total 300 400 Balance 300 400 - Medications Medications: Current Medications Amlodipine Besylate (Norvasc) 5 mg PO DAILY [facility] Last Admin: 05/23/18 09:53 Dose: 5 mg Apixaban (Eliquis) 2.5 mg PO BID [facility] Last Admin: 05/23/18 10:03 Dose: 2.5 mg Ascorbic Acid (Vitamin C 500 Mg Tab) 500 mg PO DAILY [facility] Last Admin: 05/23/18 09:53 Dose: 500 mg Aspirin (Ecotrin) 81 mg PO DAILY [facility] Last Admin: 05/23/18 09:53 Dose: 81 mg Ferrous Sulfate (Feosol) 325 mg PO DAILY [facility] Last Admin: 05/23/18 09:54 Dose: 325 mg Furosemide (Lasix) 40 mg IVP BID [facility] Last Admin: 05/23/18 09:53 Dose: 40 mg Isosorbide Mononitrate (Imdur Er) 30 mg PO DAILY [facility] Last Admin: 05/23/18 09:53 Dose: 30 mg Losartan Potassium (Cozaar) 25 mg PO DAILY [facility] Last Admin: 05/23/18 09:53 Dose: 25 mg Metoprolol Tartrate (Lopressor) 25 mg PO DAILY [facility] Last Admin: 05/23/18 09:54 Dose: 25 mg Multivitamins (Hexavitamin) 1 tab PO DAILY [facility] Last Admin: 05/23/18 09:54 Dose: 1 tab Pantoprazole Sodium (Protonix Ec Tab) 40 mg PO DAILY [facility] Last Admin: 05/23/18 09:53 Dose: 40 mg Potassium Chloride (Klor-Con 10) 10 meq PO MWF [facility] Last Admin: 05/22/18 09:58 Dose: Not Given Ranolazine (Ranexa) 500 mg PO BID [facility] Last Admin: 05/23/18 09:53 Dose: 500 mg Rosuvastatin Calcium (Crestor) 5 mg PO HS [facility] Last Admin: 05/22/18 21:25 Dose: 5 mg Sitagliptin Phosphate (Januvia) 25 mg PO DAILY [facility] Last Admin: 05/23/18 09:53 Dose: 25 mg - Labs Labs: 05/21/18 05:07 05/21/18 05:07 PT 12.7 SECONDS (9.7-12.2) H 05/21/18 05:07 INR 1.2 05/21/18 05:07 APTT 42 SECONDS (21-34) H 05/21/18 05:07
== END 2018-05-23 16:55 | disposition home or self-care (01) ==
LOC: C.ER 04:33 → C.9E 06:24 → C.5S 11:41
PROVIDERS: ADMIT Internal Medicine Nephrology; ATTEND Internal Medicine Nephrology
DX: I11.0 Hypertensive heart disease with heart failure (principal); E11.9 Type 2 diabetes mellitus without complications; J44.9 Chronic obstructive pulmonary disease, unspecified; I48.91 Unspecified atrial fibrillation; E78.00 Pure hypercholesterolemia, unspecified; Z79.01 Long term (current) use of anticoagulants; Z95.5 Presence of coronary angioplasty implant and graft
CPT/HCPCS: 36415; 71045; 80048; 80053; 81001; 82948; 83880; 84484; 85025; 85610; 85730; 93005; 96374; 97116; 97162; 99285; G0378; G8978; G8979; J1940

== ENCOUNTER 2018-06-25 03:34 | Inpatient (IN) | payer MEDICARE, MEDICAID ==
[2018-06-25 03:34] VITALS: PULSE 76
--- NOTE | 2018-06-25 03:40 | C.PDOC ---
History Of Present Illness Patient presents to the ER after waking up and feeling SOB. Medics found her to be in CHF, they gave her 2 sublingual nitro and placed her on a nonrebreather. She is currently speaking in 5-6 word sentences. Denies chest pain or palpitations. 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 History/Exam Limitations: language barrier Onset/Duration Of Symptoms: Hrs Current Symptoms Are (Timing): Still Present Initiating Event: Other (Not known) Current Respiratory Medications: See Home Med List Severity: Severe Pain Scale Rating Of: 7 Associated Symptoms: denies: Chest Pain, Other (Palpitations) Reports Recently: Seen In ED, Treated By A Physician, Hospitalized Recent travel outside of the [place]: No Additional History Per: EMS Past Medical History Reviewed: Historical Data, Nursing Documentation, Vital Signs - Medical History PMH: Asthma, Atrial Fibrillation, CHF, Diabetes, HTN, Hypercholesterolemia Denies: Chronic Kidney Disease Surgical History: Coronary Stent - [facility] Procedures ASSISTANCE WITH RESPIRATORY VENTILATION, 24-96 HRS, CPAP (11/17/15) ASSISTANCE WITH RESPIRATORY VENTILATION, <24 HRS, CPAP (05/02/16) Family History: States: No Known Family Hx - Social History Hx Tobacco Use: No Hx Alcohol Use: No Hx Substance Use: No - Immunization History Hx Tetanus Toxoid Vaccination: No Hx Influenza Vaccination: Yes Hx Pneumococcal Vaccination: No Review Of Systems Constitutional: Negative for: Fever, Chills ENT: Negative for: Throat Pain Cardiovascular: Negative for: Chest Pain, Palpitations Respiratory: Positive for: Shortness of Breath Gastrointestinal: Negative for: Nausea, Vomiting Genitourinary: Negative for: Dysuria, Hematuria Neurological: Negative for: Weakness, Numbness Physical Exam - Physical Exam Appears: In Acute Distress Skin: Warm, Dry Head: Normacephalic Eye(s): bilateral: Normal Inspection Oral Mucosa: Moist Neck: Trachea Midline, Supple Chest: Symmetrical, No Tenderness Cardiovascular: Rhythm Irregular Respiratory: Rales (At bases), No Rhonchi, No Wheezing Gastrointestinal/Abdominal: Soft, No Tenderness Back: No CVA Tenderness Extremity: Bilateral: Atraumatic Pulses: Left Dorsalis Pedis: Normal, Right Dorsalis Pedis: Normal Neurological/Psych: Oriented x3 Gait: Unable To Assess ED Course And Treatment ECG: Interpreted By Me, Viewed By Me ECG Rhythm: Atrial Fibrillation (87), Nonspecific Changes (ub=nchanged) O2 Sat by Pulse Oximetry: 100 Pulse Ox Interpretation: Normal - Radiology CXR: Interpreted by Me, Viewed By Me CXR Interpretation: Yes: Cardiomegaly, Other (mild vasc congestion, not much chnaged from 05/21/18). No: Infiltrates, Fracture Progress Note: Blood work, EKG, CXR, and urinalysis ordered. Lasix and protonix administered. Critical Care Time - Critical Care Note Total Time (in mins): 30 Documented critical care: time excludes all time spent performing seperately billable procedures. Disposition Discussed With DrArabella: Garcia Menendez Comment: accepted the pt on his service and took over the care at 4:20AM Doctor Will See Patient In The: Hospital Counseled Patient/Family Regarding: Studies Performed, Diagnosis - Disposition Disposition: HOSPITALIZED Disposition Time: 03:40 Condition: FAIR - POA Present On Arrival: Poor Glycemic Control - Clinical Impression Clinical Impression: Respiratory distress, Atrial fibrillation, CHF, acute, Dyspnea - Scribe Statement The provider has reviewed the documentation as recorded by the Scribe Fernando Ferrer All medical record entries made by the Scribe were at my direction and personally dictated by me. I have reviewed the chart and agree that the record accurately reflects my personal performance of the history, physical exam, medical decision making, and the department course for this patient. I have also personally directed, reviewed, and agree with the discharge instructions and disposition. Decision To Admit - Pt Status Changed To: Hospital Disposition Of: Inpatient - Admit Certification Admit to Inpatient:: After my assessment, the patient will require hospitalization for at least two midnights. This is because of the severity of symptoms shown, intensity of services needed, and/or the medical risk in this patient being treated as an outpatient. - InPatient: Physician Admission Certification: I certify that this patient requires 2 or more midnights of care for the following reason:: After my assessment, the patient will require hospitalization for at least two midnights. This is because of the severity of symptoms shown, intensity of services needed, and/or the medical risk in this patient being treated as an outpatient. - . Bed Request Type: Telemetry Patient Diagnosis: Respiratory distress, Atrial fibrillation, CHF, acute, Dyspnea
[2018-06-25 04:02] LABS: ABG ALLEN TEST POS; ARTERIAL BLOOD GAS HCO3 25.6 mmol/L (21-28); ARTERIAL BLOOD GAS O2 SAT 100.3 % (95-98); ARTERIAL BLOOD GAS PCO2 46 mm/Hg (35-45); ARTERIAL BLOOD GAS PH 7.37 (7.35-7.45); ARTERIAL BLOOD GAS PO2 160 mm/Hg (80-100)
[2018-06-25 04:13] VITALS: BMI 31.2
[2018-06-25 04:14] LABS: BASO # 0.1 K/uL (0.0-0.2); BASO % 0.6 % (0.0-2.0); EOS # 0.3 K/uL (0.0-0.7); EOS % 2.4 % (0.0-4.0); HEMOGLOBIN 10.5 g/dL (11.0-16.0); LYMPH # 2.9 K/uL (1.0-4.3); LYMPH % 26.8 % (20.0-40.0); MEAN CELL VOLUME 85.4 fL (81.0-99.0); MEAN CORPUSCULAR HEMOGLOBIN 27.9 pg (27.0-31.0); MEAN CORPUSCULAR HGB CONC 32.6 g/dL (33.0-37.0); MEAN PLATELET VOLUME 12.2 fL (7.2-11.7); MONO # 0.7 K/uL (0.0-0.8); MONO % 6.9 % (0.0-10.0); NEUT # 6.8 K/uL (1.8-7.0); NEUT % 63.3 % (50.0-75.0); RBC 3.75 Mil/uL (3.80-5.20); RED CELL DISTRIBUTION WIDTH 17.3 % (11.5-14.5); WHITE BLOOD COUNT 10.7 K/uL (4.8-10.8)
[2018-06-25 04:26] LABS: INR 1.3; PROTHROMBIN TIME 14.1 SECONDS (9.7-12.2)
[2018-06-25 04:30] LABS: ALB/GLOB RATIO 1.3 (1.0-2.1); ALT/SGPT 15 U/L (9-52); AST/SGOT 21 U/L (14-36); BLOOD UREA NITROGEN 25 mg/dL (7-17); CALCIUM 9.1 mg/dl (8.6-10.4); GFR NON-AFRICAN AMERICAN 47
[2018-06-25 04:41] LABS: B-TYPE NATRIURETIC PEPTIDE 2350 pg/mL (0-900)
[2018-06-25 04:47] LABS: SQUAMOUS EPITHIAL 3 /hpf (0-5); URINE BACTERIA RARE (<OCC); URINE BILIRUBIN NEGATIVE (NEGATIVE); URINE BLOOD NEGATIVE (NEGATIVE); URINE CLARITY Clear (Clear); URINE COLOR Yellow (YELLOW); URINE GLUCOSE (UA) NORMAL (Normal); URINE LEUKOCYTE ESTERASE TRACE Leu/uL (Negative); URINE PROTEIN 1+ mg/dL (NEGATIVE); URINE UROBILINOGEN NORMAL mg/dL (0.2-1.0)
--- NOTE | 2018-06-25 08:26 | RAD ---
Date of service: 06/25/2018 PROCEDURE: CHEST RADIOGRAPH, 1 VIEW HISTORY: SOB COMPARISON: 05/21/2018 FINDINGS: LUNGS: Clear. PLEURA: No pneumothorax or pleural fluid seen. CARDIOVASCULAR: Normal. OSSEOUS STRUCTURES: No significant abnormalities. VISUALIZED UPPER ABDOMEN: Normal. OTHER FINDINGS: None. IMPRESSION: No active disease.
[2018-06-25 12:04] LABS: CK-MB 0.94 ng/mL (0.0-3.38)
[2018-06-25] MEDS: Ranolazine 500 mg Extended Release Tablets PO SCH (17:32)
[2018-06-25 18:34] LABS: CK-MB 0.93 ng/mL (0.0-3.38)
--- NOTE | 2018-06-25 21:24 | CP.PCM.HP ---
Past Patient History - Infectious Disease Hx of Infectious Diseases: None - Past Medical History & Family History Past Medical History?: Yes - Past Social History Smoking Status: Never Smoked - CARDIAC Hx Atrial Fibrillation: Yes Hx Congestive Heart Failure: Yes Hx Hypercholesterolemia: Yes Hx Hypertension: Yes - PULMONARY Hx Asthma: Yes - NEUROLOGICAL Hx Neurological Disorder: Yes - HEENT Hx HEENT Problems: No - RENAL Hx Chronic Kidney Disease: No - ENDOCRINE/METABOLIC Hx Endocrine Disorders: Yes Hx Diabetes Mellitus Type 2: Yes - HEMATOLOGICAL/ONCOLOGICAL Hx Blood Disorders: No - INTEGUMENTARY Hx Dermatological Problems: No - MUSCULOSKELETAL/RHEUMATOLOGICAL Hx Falls: No - GASTROINTESTINAL Hx Gastrointestinal Disorders: No - GENITOURINARY/GYNECOLOGICAL Hx Genitourinary Disorders: No - PSYCHIATRIC Hx Substance Use: No - SURGICAL HISTORY Hx Coronary Stent: Yes - ANESTHESIA Hx Anesthesia: No Hx Anesthesia Reactions: No Hx Malignant Hyperthermia: No Meds Allergies/Adverse Reactions: Allergies Allergy/AdvReac Type Severity Reaction Status Date / Time diltiazem HCl [From Cardizem] Allergy RASH Verified 05/21/18 04:56 garlic AdvReac Verified 05/21/18 04:56 onion AdvReac Verified 05/21/18 04:56 Physical Exam - Constitutional Appears: Well - Head Exam Head Exam: ATRAUMATIC, NORMAL INSPECTION, NORMOCEPHALIC - Eye Exam Eye Exam: EOMI, Normal appearance, PERRL Pupil Exam: NORMAL ACCOMODATION, PERRL - ENT Exam ENT Exam: Mucous Membranes Moist, Normal Exam - Neck Exam Neck exam: Positive for: Normal Inspection - Respiratory Exam Respiratory Exam: Decreased Breath Sounds - Cardiovascular Exam Cardiovascular Exam: REGULAR RHYTHM, +S1, +S2 - GI/Abdominal Exam GI & Abdominal Exam: Diminished Bowel Sounds, Soft - Rectal Exam Rectal Exam: Deferred Results - Vital Signs Recent Vital Signs: Last Vital Signs Temp 97.5 F L 06/25/18 07:29 Pulse 75 06/25/18 18:00 Resp 18 06/25/18 16:42 BP 156/75 H 06/25/18 17:33 Pulse Ox 96 06/25/18 16:42 - Labs Result Diagrams: 06/25/18 04:11 06/25/18 04:11 Labs: Laboratory Results - last 24 hr 06/25/18 06/25/18 06/25/18 03:54 03:55 04:11 WBC 10.7 RBC 3.75 L Hgb 10.5 L Hct 32.0 L MCV 85.4 MCH 27.9 MCHC 32.6 L RDW 17.3 H Plt Count 137 MPV 12.2 H Neut % (Auto) 63.3 Lymph % (Auto) 26.8 [place] % (Auto) 6.9 Eos % (Auto) 2.4 Baso % (Auto) 0.6 Neut # (Auto) 6.8 Lymph # (Auto) 2.9 [place] # (Auto) 0.7 Eos # (Auto) 0.3 Baso # (Auto) 0.1 PT INR APTT Puncture Site Rr pCO2 46 H pO2 160 H HCO3 25.6 ABG pH 7.37 ABG Total CO2 28.0 ABG O2 Saturation 100.3 H ABG Base Excess 0.8 Benitez Test Pos ABG Potassium 4.5 A-a O2 Difference 32.0 Respiratory Index 0.2 Sodium 142.0 Chloride 112.0 H Glucose 123 H Lactate 0.8 Liter Flow 4.0 FiO2 35.0 Potassium Carbon Dioxide Anion Gap BUN Creatinine Est GFR ( Amer) Est GFR (Non-Af Amer) POC Glucose (mg/dL) 120 H Random Glucose Calcium Magnesium Total Bilirubin AST ALT Alkaline Phosphatase Total Creatine Kinase CK-MB (Mass) Troponin I NT-Pro-B Natriuret Pep Total Protein Albumin Globulin Albumin/Globulin Ratio Arterial Blood Potassium 4.5 Urine Color Urine Clarity Urine pH Ur Specific [place] Urine Protein Urine Glucose (UA) Urine Ketones Urine Blood Urine Nitrate Urine Bilirubin Urine Urobilinogen Ur Leukocyte Esterase Urine WBC (Auto) Urine RBC (Auto) Ur Squamous Epith Cells Urine Bacteria 06/25/18 06/25/18 06/25/18 04:11 04:11 04:26 WBC RBC Hgb Hct MCV MCH MCHC RDW Plt Count MPV Neut % (Auto) Lymph % (Auto) [place] % (Auto) Eos % (Auto) Baso % (Auto) Neut # (Auto) Lymph # (Auto) [place] # (Auto) Eos # (Auto) Baso # (Auto) PT 14.1 H INR 1.3 APTT 40 H Puncture Site pCO2 pO2 HCO3 ABG pH ABG Total CO2 ABG O2 Saturation ABG Base Excess [place]z Test ABG Potassium A-a O2 Difference Respiratory Index Sodium 142 Chloride 107 Glucose Lactate Liter Flow FiO2 Potassium 4.9 Carbon Dioxide 27 Anion Gap 13 BUN 25 H Creatinine 1.1 Est GFR ( Amer) 57 Est GFR (Non-Af Amer) 47 POC Glucose (mg/dL) Random Glucose 119 H Calcium 9.1 Magnesium 1.7 Total Bilirubin 0.7 AST 21 ALT 15 Alkaline Phosphatase 55 Total Creatine Kinase CK-MB (Mass) Troponin I < 0.0120 NT-Pro-B Natriuret Pep 2350 H Total Protein 6.9 Albumin 4.0 Globulin 3.0 Albumin/Globulin Ratio 1.3 Arterial Blood Potassium Urine Color Yellow Urine Clarity Clear Urine pH 5.0 Ur Specific [place] 1.015 Urine Protein 1+ H Urine Glucose (UA) Normal Urine Ketones Negative Urine Blood Negative Urine Nitrate Negative Urine Bilirubin Negative Urine Urobilinogen Normal Ur Leukocyte Esterase Trace Urine WBC (Auto) 1 Urine RBC (Auto) 2 Ur Squamous Epith Cells 3 Urine Bacteria Rare 06/25/18 06/25/18 06/25/18 07:33 11:18 11:38 WBC RBC Hgb Hct MCV MCH MCHC RDW Plt Count MPV Neut % (Auto) Lymph % (Auto) [place] % (Auto) Eos % (Auto) Baso % (Auto) Neut # (Auto) Lymph # (Auto) [place] # (Auto) Eos # (Auto) Baso # (Auto) PT INR APTT Puncture Site pCO2 pO2 HCO3 ABG pH ABG Total CO2 ABG O2 Saturation ABG Base Excess [place]z Test ABG Potassium A-a O2 Difference Respiratory Index Sodium Chloride Glucose Lactate Liter Flow FiO2 Potassium Carbon Dioxide Anion Gap BUN Creatinine Est GFR ( Amer) Est GFR (Non-Af Amer) POC Glucose (mg/dL) 123 H 183 H Random Glucose Calcium Magnesium Total Bilirubin AST ALT Alkaline Phosphatase Total Creatine Kinase 37 CK-MB (Mass) 0.94 Troponin I < 0.0120 NT-Pro-B Natriuret Pep Total Protein Albumin Globulin Albumin/Globulin Ratio Arterial Blood Potassium Urine Color Urine Clarity Urine pH Ur Specific [place] Urine Protein Urine Glucose (UA) Urine Ketones Urine Blood Urine Nitrate Urine Bilirubin Urine Urobilinogen Ur Leukocyte Esterase Urine WBC (Auto) Urine RBC (Auto) Ur Squamous Epith Cells Urine Bacteria 06/25/18 18:03 WBC RBC Hgb Hct MCV MCH MCHC RDW Plt Count MPV Neut % (Auto) Lymph % (Auto) [place] % (Auto) Eos % (Auto) Baso % (Auto) Neut # (Auto) Lymph # (Auto) [place] # (Auto) Eos # (Auto) Baso # (Auto) PT INR APTT Puncture Site pCO2 pO2 HCO3 ABG pH ABG Total CO2 ABG O2 Saturation ABG Base Excess [place] Test ABG Potassium A-a O2 Difference Respiratory Index Sodium Chloride Glucose Lactate Liter Flow FiO2 Potassium Carbon Dioxide Anion Gap BUN Creatinine Est GFR ( Amer) Est GFR (Non-Af Amer) POC Glucose (mg/dL) Random Glucose Calcium Magnesium Total Bilirubin AST ALT Alkaline Phosphatase Total Creatine Kinase 32 CK-MB (Mass) 0.93 Troponin I < 0.0120 NT-Pro-B Natriuret Pep Total Protein Albumin Globulin Albumin/Globulin Ratio Arterial Blood Potassium Urine Color Urine Clarity Urine pH Ur Specific [place] Urine Protein Urine Glucose (UA) Urine Ketones Urine Blood Urine Nitrate Urine Bilirubin Urine Urobilinogen Ur Leukocyte Esterase Urine WBC (Auto) Urine RBC (Auto) Ur Squamous Epith Cells Urine Bacteria
[2018-06-26] MEDS: Potassium Chloride 10 mEq ER Tab PO SCH (09:06)
[2018-06-26] MEDS ORDERED: Enoxaparin 40 mg Syringe SC SCH (10:00)
[2018-06-26] MEDS: Enoxaparin 30 mg Syringe SC SCH (10:08)
[2018-06-26] MEDS: Ranolazine 500 mg Extended Release Tablets PO SCH ×2 (10:22→17:53)
--- NOTE | 2018-06-26 16:36 | CP.PCM.PN ---
Subjective - Date & Time of Evaluation Date of Evaluation: 06/26/18 Time of Evaluation: 08:45 - Subjective Subjective: clinically same Objective - Vital Signs/Intake and Output Vital Signs (last 24 hours): Temp Pulse Resp BP Pulse Ox 98.4 F 102 H 20 118/73 95 06/26/18 15:00 06/26/18 15:00 06/26/18 15:00 06/26/18 15:00 06/26/18 15:00 Intake and Output: 06/26/18 06/26/18 06:59 18:59 Intake Total 60 Output Total 1250 Balance -1190 - Medications Medications: Current Medications Amlodipine Besylate (Norvasc) 5 mg PO DAILY [facility] Last Admin: 06/26/18 10:06 Dose: 5 mg Aspirin (Ecotrin) 81 mg PO DAILY [facility] Last Admin: 06/26/18 10:07 Dose: 81 mg Enoxaparin Sodium (Lovenox) 30 mg SC DAILY [facility] Last Admin: 06/26/18 10:08 Dose: 30 mg Furosemide (Lasix) 40 mg PO BID [facility] Last Admin: 06/26/18 10:07 Dose: 40 mg Influenza Virus Vaccine (Fluzone Quad [id number]) 60 mcg IM .ONCE ONE Stop: 06/27/18 10:01 Isosorbide Mononitrate (Imdur Er) 30 mg PO DAILY [facility] Last Admin: 06/26/18 10:07 Dose: 30 mg Losartan Potassium (Cozaar) 50 mg PO DAILY [facility] Last Admin: 06/26/18 10:07 Dose: 50 mg Metformin HCl (Glucophage) 500 mg PO BIDCC [facility] Last Admin: 06/26/18 08:32 Dose: 500 mg Pneumococcal Polyvalent Vaccine (Pneumovax 23 Vaccine) 0.5 ml IM .ONCE ONE Stop: 06/27/18 10:01 Potassium Chloride (Klor-Con 10) 10 meq PO MWF [facility] Last Admin: 06/26/18 09:06 Dose: 10 meq Pregabalin (Lyrica) 50 mg PO DAILY [facility] Last Admin: 06/26/18 10:06 Dose: 50 mg Ranolazine (Ranexa) 500 mg PO BID [facility] Last Admin: 06/26/18 10:22 Dose: 500 mg Rosuvastatin Calcium (Crestor) 5 mg PO HS [facility] Last Admin: 06/25/18 21:05 Dose: 5 mg - Labs Labs: 06/25/18 04:11 06/25/18 04:11 PT 14.1 SECONDS (9.7-12.2) H 06/25/18 04:11 INR 1.3 06/25/18 04:11 APTT 40 SECONDS (21-34) H 06/25/18 04:11 - Constitutional Appears: Well - Head Exam Head Exam: ATRAUMATIC, NORMAL INSPECTION, NORMOCEPHALIC - Eye Exam Eye Exam: EOMI, Normal appearance, PERRL Pupil Exam: NORMAL ACCOMODATION, PERRL - ENT Exam ENT Exam: Mucous Membranes Moist, Normal Exam - Neck Exam Neck Exam: Full ROM, Normal Inspection. absent: Lymphadenopathy - Respiratory Exam Respiratory Exam: Decreased Breath Sounds - Cardiovascular Exam Cardiovascular Exam: REGULAR RHYTHM, +S1, +S2 - GI/Abdominal Exam GI & Abdominal Exam: Soft, Diminished Bowel Sounds - Rectal Exam Rectal Exam: Deferred
--- NOTE | 2018-06-26 19:51 | CARD ---
APPROVED REPORT Date of service: 06/25/2018 EKG Measurement Heart [id number] <Conclusion> Atrial fibrillation AWMI, age? Low voltage QRS Abnormal ECG
--- NOTE | 2018-06-26 19:51 | CARD ---
APPROVED REPORT Date of service: 06/25/2018 EKG Measurement Heart [id number] <Conclusion> Atrial fibrillation with a competing junctional pacemaker Right axis deviation Pulmonary disease pattern Septal infarct, age undetermined Abnormal ECG
[2018-06-27] MEDS: Enoxaparin 30 mg Syringe SC SCH (09:18)
[2018-06-27] MEDS: Ranolazine 500 mg Extended Release Tablets PO SCH ×2 (09:22→17:31)
[2018-06-27] MEDS ORDERED: Pneumococcal 23-Valent Vaccine IM ONE (10:00)
[2018-06-27] MEDS ORDERED: Influenza Vaccine 60 MCG/0.5 ML SYR (3 yr & up) IM ONE (10:00)
--- NOTE | 2018-06-27 16:05 | CP.PCM.PN ---
Subjective - Date & Time of Evaluation Date of Evaluation: 06/27/18 Time of Evaluation: 10:15 - Subjective Subjective: Clinically same Objective - Vital Signs/Intake and Output Vital Signs (last 24 hours): Temp Pulse Resp BP Pulse Ox 97.4 F L 93 H 20 116/71 97 06/27/18 07:00 06/27/18 12:14 06/27/18 07:00 06/27/18 09:18 06/27/18 07:00 Intake and Output: 06/27/18 06/27/18 06:59 18:59 Intake Total 10 480 Output Total 500 Balance -490 480 - Medications Medications: Current Medications Amlodipine Besylate (Norvasc) 5 mg PO DAILY [facility] Last Admin: 06/27/18 09:18 Dose: 5 mg Aspirin (Ecotrin) 81 mg PO DAILY [facility] Last Admin: 06/27/18 09:18 Dose: 81 mg Enoxaparin Sodium (Lovenox) 30 mg SC DAILY [facility] Last Admin: 06/27/18 09:18 Dose: 30 mg Furosemide (Lasix) 40 mg PO BID [facility] Last Admin: 06/27/18 09:18 Dose: 40 mg Influenza Virus Vaccine (Fluzone Quad [id number]) 60 mcg IM .ONCE ONE Stop: 06/29/18 10:01 Isosorbide Mononitrate (Imdur Er) 30 mg PO DAILY [facility] Last Admin: 06/27/18 09:18 Dose: 30 mg Losartan Potassium (Cozaar) 50 mg PO DAILY [facility] Last Admin: 06/27/18 09:18 Dose: 50 mg Metformin HCl (Glucophage) 500 mg PO BIDCC [facility] Last Admin: 06/27/18 08:10 Dose: 500 mg Pneumococcal Polyvalent Vaccine (Pneumovax 23 Vaccine) 0.5 ml IM .ONCE ONE Stop: 06/29/18 10:01 Potassium Chloride (Klor-Con 10) 10 meq PO MWF [facility] Last Admin: 06/26/18 09:06 Dose: 10 meq Pregabalin (Lyrica) 50 mg PO DAILY [facility] Last Admin: 06/27/18 09:22 Dose: 50 mg Ranolazine (Ranexa) 500 mg PO BID [facility] Last Admin: 06/27/18 09:22 Dose: 500 mg Rosuvastatin Calcium (Crestor) 5 mg PO HS [facility] Last Admin: 06/26/18 21:52 Dose: 5 mg - Labs Labs: 06/25/18 04:11 06/25/18 04:11 PT 14.1 SECONDS (9.7-12.2) H 06/25/18 04:11 INR 1.3 06/25/18 04:11 APTT 40 SECONDS (21-34) H 06/25/18 04:11 - Constitutional Appears: Well - Head Exam Head Exam: ATRAUMATIC, NORMAL INSPECTION, NORMOCEPHALIC - Eye Exam Eye Exam: EOMI, Normal appearance, PERRL Pupil Exam: NORMAL ACCOMODATION, PERRL - ENT Exam ENT Exam: Mucous Membranes Moist, Normal Exam - Neck Exam Neck Exam: Full ROM, Normal Inspection. absent: Lymphadenopathy - Respiratory Exam Respiratory Exam: Decreased Breath Sounds - Cardiovascular Exam Cardiovascular Exam: REGULAR RHYTHM, +S1, +S2 - GI/Abdominal Exam GI & Abdominal Exam: Soft, Diminished Bowel Sounds - Rectal Exam Rectal Exam: Deferred
--- NOTE | 2018-06-27 18:08 | CP.PCM.CON ---
History of Present Illness - History of Present Illness History of Present Illness: CC: Shortness of breath HPI: 87 year old female with following chronic medical problems 1. DM is chronic and stable on metformin 2. HTN is chronic and stable on amlodipine, losartan 3. Angina chronic and stable on ranexa and imdur Past Patient History - Infectious Disease Hx of Infectious Diseases: None - Past Medical History & Family History Past Medical History?: Yes - Past Social History Smoking Status: Never Smoked - CARDIAC Hx Congestive Heart Failure: Yes Hx Hypercholesterolemia: Yes Hx Hypertension: Yes - PULMONARY Hx Asthma: Yes - NEUROLOGICAL Hx Neurological Disorder: Yes - HEENT Hx HEENT Problems: No - RENAL Hx Chronic Kidney Disease: No - ENDOCRINE/METABOLIC Hx Diabetes Mellitus Type 2: Yes - HEMATOLOGICAL/ONCOLOGICAL Hx Blood Disorders: No - INTEGUMENTARY Hx Dermatological Problems: No - MUSCULOSKELETAL/RHEUMATOLOGICAL Hx Falls: No - GASTROINTESTINAL Hx Gastrointestinal Disorders: No - GENITOURINARY/GYNECOLOGICAL Hx Genitourinary Disorders: No - PSYCHIATRIC Hx Substance Use: No - SURGICAL HISTORY Hx Coronary Stent: Yes - ANESTHESIA Hx Anesthesia: No Hx Anesthesia Reactions: No Hx Malignant Hyperthermia: No Meds Allergies/Adverse Reactions: Allergies Allergy/AdvReac Type Severity Reaction Status Date / Time diltiazem HCl [From Cardizem] Allergy RASH Verified 05/21/18 04:56 garlic AdvReac Verified 05/21/18 04:56 onion AdvReac Verified 05/21/18 04:56 - Medications Medications: Current Medications Amlodipine Besylate (Norvasc) 5 mg PO DAILY [facility] Last Admin: 06/27/18 09:18 Dose: 5 mg Aspirin (Ecotrin) 81 mg PO DAILY [facility] Last Admin: 06/27/18 09:18 Dose: 81 mg Enoxaparin Sodium (Lovenox) 30 mg SC DAILY [facility] Last Admin: 06/27/18 09:18 Dose: 30 mg Furosemide (Lasix) 40 mg PO BID [facility] Last Admin: 06/27/18 17:31 Dose: 40 mg Influenza Virus Vaccine (Fluzone Quad [id number]) 60 mcg IM .ONCE ONE Stop: 06/29/18 10:01 Isosorbide Mononitrate (Imdur Er) 30 mg PO DAILY [facility] Last Admin: 06/27/18 09:18 Dose: 30 mg Losartan Potassium (Cozaar) 50 mg PO DAILY [facility] Last Admin: 06/27/18 09:18 Dose: 50 mg Metformin HCl (Glucophage) 500 mg PO BIDCC [facility] Last Admin: 06/27/18 17:31 Dose: 500 mg Pneumococcal Polyvalent Vaccine (Pneumovax 23 Vaccine) 0.5 ml IM .ONCE ONE Stop: 06/29/18 10:01 Potassium Chloride (Klor-Con 10) 10 meq PO MWF [facility] Last Admin: 06/26/18 09:06 Dose: 10 meq Pregabalin (Lyrica) 50 mg PO DAILY [facility] Last Admin: 06/27/18 09:22 Dose: 50 mg Ranolazine (Ranexa) 500 mg PO BID [facility] Last Admin: 06/27/18 17:31 Dose: 500 mg Rosuvastatin Calcium (Crestor) 5 mg PO HS [facility] Last Admin: 06/26/18 21:52 Dose: 5 mg Physical Exam - Constitutional Appears: Well, Non-toxic - Head Exam Head Exam: ATRAUMATIC, NORMAL INSPECTION - Eye Exam Eye Exam: PERRL. absent: Scleral icterus - ENT Exam ENT Exam: Mucous Membranes Moist, Normal External Ear Exam - Neck Exam Neck exam: Positive for: Full Rom. Negative for: Lymphadenopathy, Thyromegaly - Respiratory Exam Respiratory Exam: Clear to Auscultation Bilateral, NORMAL BREATHING PATTERN - Cardiovascular Exam Cardiovascular Exam: Irregular Rhythm, REGULAR RHYTHM, +S1, +S2, +S4. absent: JVD - GI/Abdominal Exam GI & Abdominal Exam: Normal Bowel Sounds. absent: Organomegaly - Extremities Exam Extremities exam: Negative for: calf tenderness, pedal edema - Neurological Exam Neurological exam: CN II-XII Intact, Oriented x3 - Psychiatric Exam Psychiatric exam: Normal Affect, Normal Mood Results - Vital Signs Recent Vital Signs: Last Vital Signs Temp 97.6 F 06/27/18 15:00 Pulse 53 L 06/27/18 15:00 Resp 20 06/27/18 15:00 BP 109/67 06/27/18 17:31 Pulse Ox 100 06/27/18 15:00 - Labs Result Diagrams: 06/25/18 04:11 06/25/18 04:11 Labs: Laboratory Results - last 24 hr 06/26/18 06/27/18 06/27/18 21:13 06:17 11:24 POC Glucose (mg/dL) 196 H 108 194 H 06/27/18 16:59 POC Glucose (mg/dL) 136 H - EKG Data EKG Interpreted by: Myself (Atrial fibrillaiton) Rate: Normal (A) - Imaging and Cardiology Chest x-ray Additional comment: Poor inspirator effort Assessment & Plan - Assessment and Plan (Free Text) Assessment: 87 year old female with shortness of breath likely COPD Chronic diastolic CHF stable, ProBNP at baseline Atrial fibrillation and stable anticoagulation to prevent CVA HTN is chronic and stable on amlodipine and losartan Diabetes is chronic and stable metformin and insulin sliding scale Angina is chronic and stable on ranexa and imdur, continue nitro PRN
[2018-06-28] MEDS: Potassium Chloride 10 mEq ER Tab PO SCH ×2 (08:34→14:37)
--- NOTE | 2018-06-28 08:59 | PQF ---
PROVIDER RESPONSE TEXT: Acute on Chronic Diastolic CHF REVIEWER QUERY TEXT: CHF Acuity and Type Congestive Heart Failure is documented in the Medical Record. Please document the type and acuity (in cludes probable or suspected) Such as: Type: -- Systolic -- Diastolic -- Combined -- Other, please specify Acuity: -- Acute -- Chronic -- Acute on chronic -- Other, please specify Also please document the underlying cause of the CHF (includes probable or suspected) The patient's Clinical Indicators include: Pt. is 87 Y.O. female c/o SOB. Medics found her to be in CHF, 2 sublingual Nitro was given and O2 via non-rebreather. PMHx of CHF, Afib, Asthma, HTN, Coronary stent. Admitted with Dx. of Respiratory dis tress, Atrial fibrillation, CHF, Acute Dyspnea. Echo 12/22/17: EF: 65-70% grade III -reversible restrictive Diastolic Dysfunction Tx: Lasix 40 mg PO BID PBNP- 2350 Query created by: Aretha Chamberlain on 06/26/2018 2:13 PM Electronically signed by: Garcia ARMAS 06/28/2018 8:56 AM
[2018-06-28] MEDS: Ranolazine 500 mg Extended Release Tablets PO SCH ×2 (10:03→17:39)
[2018-06-28] MEDS: Enoxaparin 30 mg Syringe SC SCH (10:03)
[2018-06-28 12:23] LABS: MEAN CELL VOLUME 86.3 fL (81.0-99.0); MEAN CORPUSCULAR HEMOGLOBIN 27.5 pg (27.0-31.0); MEAN CORPUSCULAR HGB CONC 31.8 g/dL (33.0-37.0); MEAN PLATELET VOLUME 12.1 fL (7.2-11.7); RBC 4.39 Mil/uL (3.80-5.20); RED CELL DISTRIBUTION WIDTH 16.7 % (11.5-14.5); WHITE BLOOD COUNT 8.7 K/uL (4.8-10.8)
[2018-06-28 12:43] LABS: CALCIUM 9.7 mg/dl (8.6-10.4)
[2018-06-28 16:15] VITALS: RESP 20
--- NOTE | 2018-06-28 18:47 | CP.PCM.PN ---
Subjective - Date & Time of Evaluation Date of Evaluation: 06/28/18 Time of Evaluation: 10:15 - Subjective Subjective: clinically same Objective - Vital Signs/Intake and Output Vital Signs (last 24 hours): Temp Pulse Resp BP Pulse Ox 98.1 F 101 H 20 104/66 95 06/28/18 15:00 06/28/18 15:00 06/28/18 15:00 06/28/18 17:41 06/28/18 15:00 Intake and Output: 06/28/18 06/28/18 06:59 18:59 Intake Total 440 Output Total 750 Balance -310 - Medications Medications: Current Medications Amlodipine Besylate (Norvasc) 5 mg PO DAILY [facility] Last Admin: 06/28/18 10:03 Dose: 5 mg Aspirin (Ecotrin) 81 mg PO DAILY [facility] Last Admin: 06/28/18 10:04 Dose: 81 mg Enoxaparin Sodium (Lovenox) 30 mg SC DAILY [facility] Last Admin: 06/28/18 10:03 Dose: 30 mg Furosemide (Lasix) 40 mg PO BID [facility] Last Admin: 06/28/18 17:41 Dose: 40 mg Influenza Virus Vaccine (Fluzone Quad [id number]) 60 mcg IM .ONCE ONE Stop: 06/29/18 10:01 Isosorbide Mononitrate (Imdur Er) 30 mg PO DAILY [facility] Last Admin: 06/28/18 10:03 Dose: 30 mg Losartan Potassium (Cozaar) 50 mg PO DAILY [facility] Last Admin: 06/28/18 10:03 Dose: 50 mg Metformin HCl (Glucophage) 500 mg PO BIDCC [facility] Last Admin: 06/28/18 17:39 Dose: 500 mg Pneumococcal Polyvalent Vaccine (Pneumovax 23 Vaccine) 0.5 ml IM .ONCE ONE Stop: 06/29/18 10:01 Potassium Chloride (Klor-Con 10) 10 meq PO MWF [facility] Last Admin: 06/28/18 14:37 Dose: 10 meq Pregabalin (Lyrica) 50 mg PO DAILY [facility] Last Admin: 06/28/18 10:04 Dose: 50 mg Ranolazine (Ranexa) 500 mg PO BID [facility] Last Admin: 06/28/18 17:39 Dose: 500 mg Rosuvastatin Calcium (Crestor) 5 mg PO HS [facility] Last Admin: 06/27/18 22:00 Dose: 5 mg - Labs Labs: 06/28/18 12:14 06/28/18 12:14 PT 14.1 SECONDS (9.7-12.2) H 06/25/18 04:11 INR 1.3 06/25/18 04:11 APTT 40 SECONDS (21-34) H 06/25/18 04:11 - Constitutional Appears: Well - Head Exam Head Exam: ATRAUMATIC, NORMAL INSPECTION, NORMOCEPHALIC - Eye Exam Eye Exam: EOMI, Normal appearance, PERRL Pupil Exam: NORMAL ACCOMODATION, PERRL - ENT Exam ENT Exam: Mucous Membranes Moist, Normal Exam - Neck Exam Neck Exam: Full ROM, Normal Inspection. absent: Lymphadenopathy - Respiratory Exam Respiratory Exam: Decreased Breath Sounds - Cardiovascular Exam Cardiovascular Exam: REGULAR RHYTHM, +S1, +S2 - GI/Abdominal Exam GI & Abdominal Exam: Soft, Diminished Bowel Sounds - Rectal Exam Rectal Exam: Deferred
[2018-06-29] MEDS ORDERED: Influenza Vaccine 60 MCG/0.5 ML SYR (3 yr & up) IM ONE (10:00)
[2018-06-29] MEDS ORDERED: Pneumococcal 23-Valent Vaccine IM ONE (10:00)
[2018-06-29] MEDS: Enoxaparin 30 mg Syringe SC SCH (10:43)
[2018-06-29] MEDS: Ranolazine 500 mg Extended Release Tablets PO SCH ×2 (10:47→17:42)
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
--- NOTE | 2018-06-29 19:47 | CP.PCM.PN ---
Subjective - Date & Time of Evaluation Date of Evaluation: 06/29/18 Time of Evaluation: 10:00 - Subjective Subjective: clinically same Objective - Vital Signs/Intake and Output Vital Signs (last 24 hours): Temp Pulse Resp BP Pulse Ox 97.8 F 89 20 116/72 99 06/28/18 23:35 06/29/18 16:00 06/28/18 23:35 06/29/18 17:42 06/28/18 23:35 Intake and Output: 06/29/18 06/30/18 18:59 06:59 Output Total 400 Balance -400 - Medications Medications: Current Medications Amlodipine Besylate (Norvasc) 5 mg PO DAILY [facility] Last Admin: 06/29/18 10:43 Dose: 5 mg Apixaban (Eliquis) 2.5 mg PO Q12 [facility] Aspirin (Ecotrin) 81 mg PO DAILY [facility] Last Admin: 06/29/18 10:42 Dose: 81 mg Furosemide (Lasix) 40 mg PO BID [facility] Last Admin: 06/29/18 17:42 Dose: 40 mg Isosorbide Mononitrate (Imdur Er) 30 mg PO DAILY [facility] Last Admin: 06/29/18 10:43 Dose: 30 mg Losartan Potassium (Cozaar) 50 mg PO DAILY [facility] Last Admin: 06/29/18 10:43 Dose: 50 mg Metformin HCl (Glucophage) 500 mg PO BIDCC [facility] Last Admin: 06/29/18 17:42 Dose: 500 mg Potassium Chloride (Klor-Con 10) 10 meq PO MWF [facility] Last Admin: 06/28/18 14:37 Dose: 10 meq Pregabalin (Lyrica) 50 mg PO DAILY [facility] Last Admin: 06/29/18 11:00 Dose: 50 mg Ranolazine (Ranexa) 500 mg PO BID [facility] Last Admin: 06/29/18 17:42 Dose: 500 mg Rosuvastatin Calcium (Crestor) 5 mg PO HS [facility] Last Admin: 06/28/18 22:05 Dose: 5 mg - Labs Labs: 06/28/18 12:14 06/28/18 12:14 PT 14.1 SECONDS (9.7-12.2) H 06/25/18 04:11 INR 1.3 06/25/18 04:11 APTT 40 SECONDS (21-34) H 11/06/18 04:11 - Constitutional Appears: Well - Head Exam Head Exam: ATRAUMATIC, NORMAL INSPECTION, NORMOCEPHALIC - Eye Exam Eye Exam: EOMI, Normal appearance, PERRL Pupil Exam: NORMAL ACCOMODATION, PERRL - ENT Exam ENT Exam: Mucous Membranes Moist, Normal Exam - Neck Exam Neck Exam: Full ROM, Normal Inspection. absent: Lymphadenopathy - Respiratory Exam Respiratory Exam: Decreased Breath Sounds - Cardiovascular Exam Cardiovascular Exam: REGULAR RHYTHM, +S1, +S2 - GI/Abdominal Exam GI & Abdominal Exam: Soft, Diminished Bowel Sounds - Rectal Exam Rectal Exam: Deferred
[2018-06-30] MEDS: Ranolazine 500 mg Extended Release Tablets PO SCH (10:13)
--- NOTE | 2018-06-30 14:12 | CP.PCM.PN ---
Subjective - Date & Time of Evaluation Date of Evaluation: 06/30/18 Time of Evaluation: 10:00 - Subjective Subjective: clinically same Objective - Vital Signs/Intake and Output Vital Signs (last 24 hours): Temp Pulse Resp BP Pulse Ox 98.0 F 61 20 123/76 100 06/30/18 07:00 06/30/18 07:00 06/30/18 07:00 06/30/18 10:11 06/30/18 07:00 Intake and Output: 06/30/18 06/30/18 06:59 18:59 Intake Total 320 Balance 320 - Medications Medications: Current Medications Amlodipine Besylate (Norvasc) 5 mg PO DAILY [facility] Last Admin: 06/30/18 10:11 Dose: 5 mg Apixaban (Eliquis) 2.5 mg PO Q12 [facility] Last Admin: 06/30/18 10:11 Dose: 2.5 mg Aspirin (Ecotrin) 81 mg PO DAILY [facility] Last Admin: 06/30/18 10:17 Dose: 81 mg Furosemide (Lasix) 40 mg PO BID [facility] Last Admin: 06/30/18 10:11 Dose: 40 mg Isosorbide Mononitrate (Imdur Er) 30 mg PO DAILY [facility] Last Admin: 06/30/18 10:11 Dose: 30 mg Losartan Potassium (Cozaar) 50 mg PO DAILY [facility] Last Admin: 06/30/18 10:11 Dose: 50 mg Metformin HCl (Glucophage) 500 mg PO BIDCC [facility] Last Admin: 06/30/18 08:28 Dose: 500 mg Potassium Chloride (Klor-Con 10) 10 meq PO MWF [facility] Last Admin: 06/28/18 14:37 Dose: 10 meq Pregabalin (Lyrica) 50 mg PO DAILY [facility] Last Admin: 06/30/18 10:11 Dose: 50 mg Ranolazine (Ranexa) 500 mg PO BID [facility] Last Admin: 06/30/18 10:13 Dose: 500 mg Rosuvastatin Calcium (Crestor) 5 mg PO HS [facility] Last Admin: 06/29/18 21:10 Dose: 5 mg - Labs Labs: 06/28/18 12:14 06/28/18 12:14 PT 14.1 SECONDS (9.7-12.2) H 06/25/18 04:11 INR 1.3 06/25/18 04:11 APTT 40 SECONDS (21-34) H 06/25/18 04:11 - Constitutional Appears: Well - Head Exam Head Exam: ATRAUMATIC, NORMAL INSPECTION, NORMOCEPHALIC - Eye Exam Eye Exam: EOMI, Normal appearance, PERRL Pupil Exam: NORMAL ACCOMODATION, PERRL - ENT Exam ENT Exam: Mucous Membranes Moist, Normal Exam - Neck Exam Neck Exam: Full ROM, Normal Inspection. absent: Lymphadenopathy - Respiratory Exam Respiratory Exam: Decreased Breath Sounds - Cardiovascular Exam Cardiovascular Exam: REGULAR RHYTHM, +S1, +S2 - GI/Abdominal Exam GI & Abdominal Exam: Soft, Diminished Bowel Sounds - Rectal Exam Rectal Exam: Deferred
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
[2018-07-01] MEDS: Potassium Chloride 10 mEq ER Tab PO SCH (10:00)
[2018-07-01] MEDS ORDERED: Metoprolol Succinate 25 mg XL Tab PO SCH (10:00)
[2018-07-01] MEDS: Ranolazine 500 mg Extended Release Tablets PO SCH ×2 (11:00→17:26)
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
[2018-07-01 17:23] VITALS: BP 109/68
[2018-07-01 17:35] VITALS: PULSE 80; TEMP 97.6; O2SAT 96
--- NOTE | 2018-07-01 18:00 | CP.PCM.PN ---
Subjective - Date & Time of Evaluation Date of Evaluation: 07/01/18 Time of Evaluation: 10:45 - Subjective Subjective: clinically same Objective - Vital Signs/Intake and Output Vital Signs (last 24 hours): Temp Pulse Resp BP Pulse Ox 97.6 F 80 20 109/68 96 07/01/18 15:15 07/01/18 15:15 07/01/18 15:15 07/01/18 17:22 07/01/18 15:15 Intake and Output: 07/01/18 07/01/18 06:59 18:59 Intake Total 320 Output Total 350 Balance -30 - Labs Labs: 06/28/18 12:14 06/28/18 12:14 PT 14.1 SECONDS (9.7-12.2) H 06/25/18 04:11 INR 1.3 06/25/18 04:11 APTT 40 SECONDS (21-34) H 06/25/18 04:11 - Constitutional Appears: Well - Head Exam Head Exam: ATRAUMATIC, NORMAL INSPECTION, NORMOCEPHALIC - Eye Exam Eye Exam: EOMI, Normal appearance, PERRL Pupil Exam: NORMAL ACCOMODATION, PERRL - ENT Exam ENT Exam: Mucous Membranes Moist, Normal Exam - Neck Exam Neck Exam: Full ROM, Normal Inspection. absent: Lymphadenopathy - Respiratory Exam Respiratory Exam: Decreased Breath Sounds - Cardiovascular Exam Cardiovascular Exam: REGULAR RHYTHM, +S1, +S2 - GI/Abdominal Exam GI & Abdominal Exam: Soft, Diminished Bowel Sounds - Rectal Exam Rectal Exam: Deferred
== END 2018-07-01 17:48 | disposition home or self-care (01) | DRG 293 ==
LOC: C.ER 03:34 → C.9E 04:14 → C.9I 07:12 → C.6T 06-26 07:15
PROVIDERS: ADMIT Internal Medicine Nephrology; ATTEND Internal Medicine Nephrology
DX: I11.0 Hypertensive heart disease with heart failure (principal); I50.33 Acute on chronic diastolic (congestive) heart failure; J44.9 Chronic obstructive pulmonary disease, unspecified; E78.00 Pure hypercholesterolemia, unspecified; Z95.5 Presence of coronary angioplasty implant and graft; R06.03 Acute respiratory distress; E11.9 Type 2 diabetes mellitus without complications; I20.9 Angina pectoris, unspecified; I27.20 Pulmonary hypertension, unspecified; I48.2 Chronic atrial fibrillation

== ENCOUNTER 2018-10-08 06:47 | Inpatient (IN) | payer MEDICARE, MEDICAID ==
[2018-10-08 06:48] VITALS: PULSE 76; BMI 36.6
--- NOTE | 2018-10-08 06:52 | C.PDOC ---
History Of Present Illness Patient presents from home with acute onset dyspnea this morning. She has a history of CHF. Medics noted rales throughout bilateral lungs, and patient was found to be hypertensive with systolic in the 200's. They placed the patient on CPAP, gave 20mg lasix ivp, SL nitroglycerin x1 which dropped pressure to the 170's systolic, and applied 1in nitroglycerin paste. Per EMS patient is improved, however upon arrival patient is still in respiratory distress, using accessory muscles, with audible rales/wheezing. <Shi Albarado - Last Filed: 10/08/18 06:57> Onset/Duration Of Symptoms: Hrs Current Symptoms Are (Timing): Better Exacerbating Factor(s): Laying Flat <Shi Albarado - Last Filed: 10/08/18 06:57> <Peng Murray - Last Filed: 10/08/18 07:44> Time Seen by Provider: 10/08/18 06:48 Chief Complaint (Nursing): Respiratory Distress Past Medical History Reviewed: Historical Data, Nursing Documentation, Vital Signs BLANCA Report Viewed: Yes - Medical History PMH: Asthma, Atrial Fibrillation, CHF, Diabetes, HTN, Hypercholesterolemia Denies: Chronic Kidney Disease Surgical History: Coronary Stent - [facility] ASSISTANCE WITH RESPIRATORY VENTILATION, 24-96 HRS, CPAP (11/17/15) ASSISTANCE WITH RESPIRATORY VENTILATION, <24 HRS, CPAP (05/02/16) Family History: States: Unknown Family Hx - Social History Hx Tobacco Use: No Hx Alcohol Use: No Hx Substance Use: No - Immunization History Hx Tetanus Toxoid Vaccination: No Hx Influenza Vaccination: Yes Hx Pneumococcal Vaccination: No <Shi Albarado - Last Filed: 10/08/18 06:57> Vital Signs: Last Vital Signs Temp 98.1 F 10/08/18 06:49 Pulse 98 H 10/08/18 07:40 Resp 20 10/08/18 07:40 BP 136/71 10/08/18 07:40 Pulse Ox 100 10/08/18 07:40 - [facility] Procedures ASSISTANCE WITH RESPIRATORY VENTILATION, 24-96 HRS, CPAP (11/17/15) ASSISTANCE WITH RESPIRATORY VENTILATION, <24 HRS, CPAP (05/02/16) <Peng Murray - Last Filed: 10/08/18 07:44> Review Of Systems Except As Marked, All Systems Reviewed And Found Negative. Constitutional: Negative for: Chills Cardiovascular: Negative for: Chest Pain Respiratory: Positive for: Shortness of Breath Gastrointestinal: Negative for: Nausea, Vomiting, Abdominal Pain, Diarrhea Skin: Negative for: Rash Neurological: Negative for: Altered Mental Status <Shi Albarado Last Filed: 10/08/18 06:57> Physical Exam - Physical Exam Appears: In Acute Distress (respiratory distress) Skin: Normal Color, Warm, Dry, No Diaphoretic Head: Atraumatic Eye(s): bilateral: Normal Inspection Oral Mucosa: Moist Chest: Symmetrical Cardiovascular: Rhythm Irregular (afib) Respiratory: Accessory Muscle Use, Rales (diffuse), Wheezing Gastrointestinal/Abdominal: Normal Exam Extremity: No Pedal Edema Neurological/Psych: Oriented x3, Normal Speech <Shi Albarado Filed: 10/08/18 06:57> ED Course And Treatment ECG: Interpreted By Me ECG Rhythm: Atrial Fibrillation Interpretation Of ECG: L posterior fascicular block, normal QTc, no ST elevation Rate From EC <Shi Albarado Filed: 10/08/18 06:57> - Laboratory Results Result Diagrams: 10/08/18 07:03 10/08/18 07:03 Lab Results: PT 12.8 SECONDS (9.7-12.2) H 10/08/18 07:03 INR 1.2 10/08/18 07:03 APTT 37 SECONDS (21-34) H 10/08/18 07:03 Troponin I < 0.0120 ng/mL (0.00-0.120) 10/08/18 07:03 NT-Pro-B Natriuret Pep 2160 pg/mL (0-900) H 10/08/18 07:03 Total Bilirubin 0.6 mg/dL (0.2-1.3) 10/08/18 07:03 AST 42 U/L (14-36) H D 10/08/18 07:03 ALT 14 U/L (9-52) 10/08/18 07:03 Alkaline Phosphatase 76 U/L (38-126) 10/08/18 07:03 Total Protein 7.5 g/dL (6.3-8.3) 10/08/18 07:03 Albumin 4.4 g/dL (3.5-5.0) 10/08/18 07:03 Globulin 3.1 gm/dL (2.2-3.9) 10/08/18 07:03 Albumin/Globulin Ratio 1.4 (1.0-2.1) 10/08/18 07:03 <Peng Murray - Last Filed: 10/08/18 07:44> Medical Decision Making Medical Decision Making: CXR no consolidation. Patient improved and stable on Bipap, HR normalized, no distress, afebrile, blood pressure normal, 100% saturation. Dr. Menendez accepts patient to telemetry. <Peng Murray - Last Filed: 10/08/18 07:44> Disposition <Shi Albarado - Last Filed: 10/08/18 06:57> - Disposition Disposition Time: 07:44 <Peng Murray - Last Filed: 10/08/18 07:44> - Disposition Disposition: HOSPITALIZED Condition: FAIR Forms: [facility] (Maori) - Clinical Impression Clinical Impression: CHF, acute
[2018-10-08 07:12] LABS: BASO # 0.1 K/uL (0.0-0.2); BASO % 0.5 % (0.0-2.0); EOS # 0.2 K/uL (0.0-0.7); EOS % 2.3 % (0.0-4.0); HEMOGLOBIN 10.8 g/dL (11.0-16.0); LYMPH # 3.1 K/uL (1.0-4.3); LYMPH % 30.9 % (20.0-40.0); MEAN CELL VOLUME 85.6 fL (81.0-99.0); MEAN CORPUSCULAR HEMOGLOBIN 26.7 pg (27.0-31.0); MEAN CORPUSCULAR HGB CONC 31.3 g/dL (33.0-37.0); MEAN PLATELET VOLUME 11.9 fL (7.2-11.7); MONO # 0.7 K/uL (0.0-0.8); MONO % 7.2 % (0.0-10.0); NEUT # 5.9 K/uL (1.8-7.0); NEUT % 59.1 % (50.0-75.0); RBC 4.02 Mil/uL (3.80-5.20); WHITE BLOOD COUNT 10.1 K/uL (4.8-10.8)
[2018-10-08 07:19] LABS: ALB/GLOB RATIO 1.4 (1.0-2.1); ALBUMIN 4.4 g/dL (3.5-5.0); ALT/SGPT 14 U/L (9-52); AST/SGOT 42 U/L (14-36); BLOOD UREA NITROGEN 23 mg/dL (7-17); CALCIUM 9.5 mg/dl (8.6-10.4); GFR NON-AFRICAN AMERICAN 47
[2018-10-08 07:20] LABS: INR 1.2; PROTHROMBIN TIME 12.8 SECONDS (9.7-12.2)
[2018-10-08 07:30] LABS: B-TYPE NATRIURETIC PEPTIDE 2160 pg/mL (0-900)
[2018-10-08] MEDS: Albuterol-Ipratrop 3 mg / 0.5 (3 ml) UD INH SCH ×2 (10:15→19:47)
--- NOTE | 2018-10-08 11:13 | RAD ---
Date of service: 10/08/2018 PROCEDURE: CHEST RADIOGRAPH, 1 VIEW HISTORY: Chest pain COMPARISON: 06/25/2018. FINDINGS: LUNGS: The lungs are well inflated and clear. PLEURA: No pneumothorax or pleural effusion. CARDIOVASCULAR: The heart is normal in size. No aortic atherosclerotic calcifications present. OSSEOUS STRUCTURES: Within normal limits for the patient's age. VISUALIZED UPPER ABDOMEN: Normal. OTHER FINDINGS: None. IMPRESSION: No active pulmonary disease.
[2018-10-08 15:47] LABS: CK-MB 0.71 ng/mL (0.0-3.38)
--- NOTE | 2018-10-08 16:49 | CP.PCM.CON ---
History of Present Illness - History of Present Illness History of Present Illness: Patient presents from home with acute onset dyspnea this morning. She has a history of CHF. Medics noted rales throughout bilateral lungs, and patient was found to be hypertensive with systolic in the 200's. They placed the patient on CPAP, gave 20mg lasix ivp, SL nitroglycerin x1 which dropped pressure to the 170's systolic, and applied 1in nitroglycerin paste. Per EMS patient is improved, however upon arrival patient is still in respiratory distress, using accessory muscles, with audible rales/wheezing. Review of Systems - Review of Systems All systems: reviewed and no additional remarkable complaints except (as per HPI) Past Patient History - Infectious Disease Hx of Infectious Diseases: None - Past Medical History & Family History Past Medical History?: Yes - Past Social History Smoking Status: Never Smoked - CARDIAC Hx Atrial Fibrillation: Yes Hx Congestive Heart Failure: Yes Hx Hypercholesterolemia: Yes Hx Hypertension: Yes - PULMONARY Hx Asthma: Yes - NEUROLOGICAL Hx Neurological Disorder: Yes - HEENT Hx HEENT Problems: No - RENAL Hx Chronic Kidney Disease: No - ENDOCRINE/METABOLIC Hx Endocrine Disorders: Yes Hx Diabetes Mellitus Type 2: Yes - HEMATOLOGICAL/ONCOLOGICAL Hx Blood Disorders: No - INTEGUMENTARY Hx Dermatological Problems: No - MUSCULOSKELETAL/RHEUMATOLOGICAL Hx Falls: No - GASTROINTESTINAL Hx Gastrointestinal Disorders: No - GENITOURINARY/GYNECOLOGICAL Hx Genitourinary Disorders: No - PSYCHIATRIC Hx Substance Use: No - SURGICAL HISTORY Hx Coronary Stent: Yes - ANESTHESIA Hx Anesthesia: No Hx Anesthesia Reactions: No Hx Malignant Hyperthermia: No Meds Allergies/Adverse Reactions: Allergies Allergy/AdvReac Type Severity Reaction Status Date / Time diltiazem HCl [From [facility]] Allergy RASH Verified 05/21/18 04:56 garlic AdvReac Verified 05/21/18 04:56 onion AdvReac Verified 05/21/18 04:56 - Medications Medications: Current Medications Albuterol/Ipratropium (Duoneb 3 Mg/0.5 Mg (3 Ml) Ud) 3 ml INH RQ6 [facility] Last Admin: 10/08/18 10:15 Dose: 3 ml Amlodipine Besylate (Norvasc) 5 mg PO DAILY [facility] Apixaban (Eliquis) 2.5 mg PO BID [facility] Aspirin (Aspirin Chewable) 81 mg PO DAILY [facility] Last Admin: 10/08/18 10:16 Dose: 81 mg Aspirin (Ecotrin) 81 mg PO DAILY [facility] Furosemide (Lasix) 40 mg IVP Q12H [facility] Last Admin: 10/08/18 10:16 Dose: 40 mg Insulin Aspart (Novolog) 0 unit [facility]; Protocol Isosorbide Mononitrate (Imdur Er) 30 mg PO DAILY [facility] Metformin HCl (Glucophage) 500 mg PO BID [facility] Metoprolol Tartrate (Lopressor) 25 mg PO DAILY [facility] Multivitamins (Hexavitamin) 1 tab PO DAILY [facility] Ranolazine (Ranexa) 500 mg PO BID [facility] Rosuvastatin Calcium (Crestor) 5 mg PO HS [facility] Physical Exam - Head Exam Head Exam: NORMAL INSPECTION - Eye Exam Eye Exam: Normal appearance - ENT Exam ENT Exam: Mucous Membranes Moist - Respiratory Exam Respiratory Exam: Rhonchi, Wheezes - Cardiovascular Exam Cardiovascular Exam: REGULAR RHYTHM, +S1, +S2 - GI/Abdominal Exam GI & Abdominal Exam: Normal Bowel Sounds, Soft - Extremities Exam Extremities exam: Positive for: pedal edema - Neurological Exam Neurological exam: Alert, Oriented x3 Results - Vital Signs Recent Vital Signs: Last Vital Signs Temp 97.7 F 10/08/18 16:00 Pulse 75 10/08/18 16:37 Resp 20 10/08/18 16:00 BP 120/64 10/08/18 16:00 Pulse Ox 97 10/08/18 16:00 - Labs Result Diagrams: 10/08/18 07:03 10/08/18 07:03 Labs: Laboratory Results - last 24 hr 10/08/18 10/08/18 10/08/18 06:51 07:03 07:03 WBC 10.1 RBC 4.02 Hgb 10.8 L Hct 34.4 MCV 85.6 MCH 26.7 L MCHC 31.3 L RDW 16.0 H Plt Count 186 MPV 11.9 H Neut % (Auto) 59.1 Lymph % (Auto) 30.9 [place] % (Auto) 7.2 Eos % (Auto) 2.3 Baso % (Auto) 0.5 Neut # (Auto) 5.9 Lymph # (Auto) 3.1 [place] # (Auto) 0.7 Eos # (Auto) 0.2 Baso # (Auto) 0.1 PT INR APTT Sodium 141 Potassium 5.0 Chloride 106 Carbon Dioxide 29 Anion Gap 12 BUN 23 H Creatinine 1.1 Est GFR ( Amer) 57 Est GFR (Non-Af Amer) 47 POC Glucose (mg/dL) 159 H Random Glucose 159 H Calcium 9.5 Total Bilirubin 0.6 AST 42 H D ALT 14 Alkaline Phosphatase 76 Total Creatine Kinase CK-MB (Mass) Troponin I < 0.0120 NT-Pro-B Natriuret Pep 2160 H Total Protein 7.5 Albumin 4.4 Globulin 3.1 Albumin/Globulin Ratio 1.4 10/08/18 10/08/18 10/08/18 07:03 12:00 15:05 WBC RBC Hgb Hct MCV MCH MCHC RDW Plt Count MPV Neut % (Auto) Lymph % (Auto) [place] % (Auto) Eos % (Auto) Baso % (Auto) Neut # (Auto) Lymph # (Auto) [place] # (Auto) Eos # (Auto) Baso # (Auto) PT 12.8 H INR 1.2 APTT 37 H Sodium Potassium Chloride Carbon Dioxide Anion Gap BUN Creatinine Est GFR ( Amer) Est GFR (Non-Af Amer) POC Glucose (mg/dL) 135 H Random Glucose Calcium Total Bilirubin AST ALT Alkaline Phosphatase Total Creatine Kinase 22 L CK-MB (Mass) 0.71 Troponin I < 0.0120 NT-Pro-B Natriuret Pep Total Protein Albumin Globulin Albumin/Globulin Ratio 10/08/18 16:21 WBC RBC Hgb Hct MCV MCH MCHC RDW Plt Count MPV Neut % (Auto) Lymph % (Auto) [place] % (Auto) Eos % (Auto) Baso % (Auto) Neut # (Auto) Lymph # (Auto) [place] # (Auto) Eos # (Auto) Baso # (Auto) PT INR APTT Sodium Potassium Chloride Carbon Dioxide Anion Gap BUN Creatinine Est GFR ( Amer) Est GFR (Non-Af Amer) POC Glucose (mg/dL) 175 H Random Glucose Calcium Total Bilirubin AST ALT Alkaline Phosphatase Total Creatine Kinase CK-MB (Mass) Troponin I NT-Pro-B Natriuret Pep Total Protein Albumin Globulin Albumin/Globulin Ratio Assessment & Plan (1) CHF, acute Status: Acute (2) Chronic obstructive lung disease Status: Acute (3) Dyspnea Status: Acute (4) Diabetes Status: Chronic (5) HTN (hypertension) Status: Chronic - Assessment and Plan (Free Text) Plan: Lasix Keep pt negative balance BiPAP as needed Bronchodilators Accu check Insulin BP control DVT/GI prophalaxis
--- NOTE | 2018-10-08 17:58 | CP.PCM.HP ---
Past Patient History - Infectious Disease Hx of Infectious Diseases: None - Past Medical History & Family History Past Medical History?: Yes - Past Social History Smoking Status: Never Smoked - CARDIAC Hx Atrial Fibrillation: Yes Hx Congestive Heart Failure: Yes Hx Hypercholesterolemia: Yes Hx Hypertension: Yes - PULMONARY Hx Asthma: Yes - NEUROLOGICAL Hx Neurological Disorder: Yes - HEENT Hx HEENT Problems: No - RENAL Hx Chronic Kidney Disease: No - ENDOCRINE/METABOLIC Hx Endocrine Disorders: Yes Hx Diabetes Mellitus Type 2: Yes - HEMATOLOGICAL/ONCOLOGICAL Hx Blood Disorders: No - INTEGUMENTARY Hx Dermatological Problems: No - MUSCULOSKELETAL/RHEUMATOLOGICAL Hx Falls: No - GASTROINTESTINAL Hx Gastrointestinal Disorders: No - GENITOURINARY/GYNECOLOGICAL Hx Genitourinary Disorders: No - PSYCHIATRIC Hx Substance Use: No - SURGICAL HISTORY Hx Coronary Stent: Yes - ANESTHESIA Hx Anesthesia: No Hx Anesthesia Reactions: No Hx Malignant Hyperthermia: No Meds Allergies/Adverse Reactions: Allergies Allergy/AdvReac Type Severity Reaction Status Date / Time diltiazem HCl [From [facility]] Allergy RASH Verified 05/21/18 04:56 garlic AdvReac Verified 05/21/18 04:56 onion AdvReac Verified 05/21/18 04:56 Physical Exam - Constitutional Appears: Well - Head Exam Head Exam: ATRAUMATIC, NORMAL INSPECTION, NORMOCEPHALIC - Eye Exam Eye Exam: EOMI, Normal appearance, PERRL Pupil Exam: NORMAL ACCOMODATION, PERRL - ENT Exam ENT Exam: Mucous Membranes Moist, Normal Exam - Neck Exam Neck exam: Positive for: Normal Inspection - Respiratory Exam Respiratory Exam: Decreased Breath Sounds - Cardiovascular Exam Cardiovascular Exam: REGULAR RHYTHM, +S1, +S2 - GI/Abdominal Exam GI & Abdominal Exam: Diminished Bowel Sounds, Soft - Rectal Exam Rectal Exam: Deferred Results - Vital Signs Recent Vital Signs: Last Vital Signs Temp 97.7 F 10/08/18 16:00 Pulse 75 10/08/18 16:37 Resp 20 10/08/18 16:00 BP 120/64 10/08/18 16:00 Pulse Ox 97 10/08/18 16:00 - Labs Result Diagrams: 10/08/18 07:03 10/08/18 07:03 Labs: Laboratory Results - last 24 hr 10/08/18 10/08/18 10/08/18 06:51 07:03 07:03 WBC 10.1 RBC 4.02 Hgb 10.8 L Hct 34.4 MCV 85.6 MCH 26.7 L MCHC 31.3 L RDW 16.0 H Plt Count 186 MPV 11.9 H Neut % (Auto) 59.1 Lymph % (Auto) 30.9 [place] % (Auto) 7.2 Eos % (Auto) 2.3 Baso % (Auto) 0.5 Neut # (Auto) 5.9 Lymph # (Auto) 3.1 [place] # (Auto) 0.7 Eos # (Auto) 0.2 Baso # (Auto) 0.1 PT INR APTT Sodium 141 Potassium 5.0 Chloride 106 Carbon Dioxide 29 Anion Gap 12 BUN 23 H Creatinine 1.1 Est GFR ( Amer) 57 Est GFR (Non-Af Amer) 47 POC Glucose (mg/dL) 159 H Random Glucose 159 H Calcium 9.5 Total Bilirubin 0.6 AST 42 H D ALT 14 Alkaline Phosphatase 76 Total Creatine Kinase CK-MB (Mass) Troponin I < 0.0120 NT-Pro-B Natriuret Pep 2160 H Total Protein 7.5 Albumin 4.4 Globulin 3.1 Albumin/Globulin Ratio 1.4 10/08/18 10/08/18 10/08/18 07:03 12:00 15:05 WBC RBC Hgb Hct MCV MCH MCHC RDW Plt Count MPV Neut % (Auto) Lymph % (Auto) [place] % (Auto) Eos % (Auto) Baso % (Auto) Neut # (Auto) Lymph # (Auto) [place] # (Auto) Eos # (Auto) Baso # (Auto) PT 12.8 H INR 1.2 APTT 37 H Sodium Potassium Chloride Carbon Dioxide Anion Gap BUN Creatinine Est GFR ( Amer) Est GFR (Non-Af Amer) POC Glucose (mg/dL) 135 H Random Glucose Calcium Total Bilirubin AST ALT Alkaline Phosphatase Total Creatine Kinase 22 L CK-MB (Mass) 0.71 Troponin I < 0.0120 NT-Pro-B Natriuret Pep Total Protein Albumin Globulin Albumin/Globulin Ratio 10/08/18 16:21 WBC RBC Hgb Hct MCV MCH MCHC RDW Plt Count MPV Neut % (Auto) Lymph % (Auto) [place] % (Auto) Eos % (Auto) Baso % (Auto) Neut # (Auto) Lymph # (Auto) [place] # (Auto) Eos # (Auto) Baso # (Auto) PT INR APTT Sodium Potassium Chloride Carbon Dioxide Anion Gap BUN Creatinine Est GFR ( Amer) Est GFR (Non-Af Amer) POC Glucose (mg/dL) 175 H Random Glucose Calcium Total Bilirubin AST ALT Alkaline Phosphatase Total Creatine Kinase CK-MB (Mass) Troponin I NT-Pro-B Natriuret Pep Total Protein Albumin Globulin Albumin/Globulin Ratio
[2018-10-08] MEDS: (Novolog) Insulin Aspart, Recombinant 100 u/ml 10 ml vial SC SCH ×2 (18:01→21:35)
[2018-10-08] MEDS: Ranolazine 500 mg Extended Release Tablets PO SCH (18:03)
[2018-10-09] MEDS: Albuterol-Ipratrop 3 mg / 0.5 (3 ml) UD INH SCH ×4 (01:00→21:25)
[2018-10-09 07:02] LABS: BASO # 0.1 K/uL (0.0-0.2); BASO % 0.6 % (0.0-2.0); EOS # 0.2 K/uL (0.0-0.7); EOS % 1.8 % (0.0-4.0); HEMOGLOBIN 10.4 g/dL (11.0-16.0); LYMPH # 2.6 K/uL (1.0-4.3); LYMPH % 27.4 % (20.0-40.0); MEAN CELL VOLUME 84.1 fL (81.0-99.0); MEAN CORPUSCULAR HEMOGLOBIN 26.2 pg (27.0-31.0); MEAN CORPUSCULAR HGB CONC 31.1 g/dL (33.0-37.0); MEAN PLATELET VOLUME 11.4 fL (7.2-11.7); MONO # 0.7 K/uL (0.0-0.8); MONO % 7.3 % (0.0-10.0); NEUT % 62.9 % (50.0-75.0); RBC 3.99 Mil/uL (3.80-5.20); RED CELL DISTRIBUTION WIDTH 16.2 % (11.5-14.5); WHITE BLOOD COUNT 9.6 K/uL (4.8-10.8)
[2018-10-09 07:38] LABS: ALB/GLOB RATIO 1.4 (1.0-2.1); ALBUMIN 3.8 g/dL (3.5-5.0); CALCIUM 9.2 mg/dl (8.6-10.4)
[2018-10-09 07:41] LABS: CK-MB 0.48 ng/mL (0.0-3.38); TROPONIN I 0.015 ng/mL (0.00-0.120)
[2018-10-09] MEDS: (Novolog) Insulin Aspart, Recombinant 100 u/ml 10 ml vial SC SCH ×4 (07:55→22:11)
[2018-10-09] MEDS: Multiple Vitamins Tab PO SCH (09:39)
[2018-10-09] MEDS: Ranolazine 500 mg Extended Release Tablets PO SCH ×2 (09:39→17:23)
--- NOTE | 2018-10-09 13:19 | CP.PCM.CON ---
History of Present Illness - History of Present Illness History of Present Illness: CC: Shortness of breath HPI: 87 year old female with following chronic medical problems 1. Acute on chronic diastolic CHF on bipap and improving with lasix 2. Angina is chronic and stable on ranexa and nitrates, had a normal nuclear stress test in the past several months at [facility] 3. DM Chronic and stable on metformin and insulin sliding scale 4. Atrial fibrillation chronic and rate controlled on metoprolol; Elaquis for CVA prophylaxsis Review of Systems - Review of Systems All systems: reviewed and no additional remarkable complaints except Review of Systems: +Shortness of breath - angina Past Patient History - Infectious Disease Hx of Infectious Diseases: None - Past Medical History & Family History Past Medical History?: Yes - Past Social History Smoking Status: Never Smoked - CARDIAC Hx Congestive Heart Failure: Yes Hx Hypercholesterolemia: Yes Hx Hypertension: Yes - PULMONARY Hx Asthma: Yes - NEUROLOGICAL Hx Neurological Disorder: Yes - HEENT Hx HEENT Problems: No - RENAL Hx Chronic Kidney Disease: No - ENDOCRINE/METABOLIC Hx Endocrine Disorders: Yes Hx Diabetes Mellitus Type 2: Yes - HEMATOLOGICAL/ONCOLOGICAL Hx Blood Disorders: No - INTEGUMENTARY Hx Dermatological Problems: No - MUSCULOSKELETAL/RHEUMATOLOGICAL Hx Falls: No - GASTROINTESTINAL Hx Gastrointestinal Disorders: No - GENITOURINARY/GYNECOLOGICAL Hx Genitourinary Disorders: No - PSYCHIATRIC Hx Substance Use: No - SURGICAL HISTORY Hx Coronary Stent: Yes - ANESTHESIA Hx Anesthesia: No Hx Anesthesia Reactions: No Hx Malignant Hyperthermia: No Meds Allergies/Adverse Reactions: Allergies Allergy/AdvReac Type Severity Reaction Status Date / Time diltiazem HCl [From Cardizem] Allergy RASH Verified 05/21/18 04:56 garlic AdvReac Verified 05/21/18 04:56 onion AdvReac Verified 05/21/18 04:56 - Medications Medications: Current Medications Albuterol/Ipratropium (Duoneb 3 Mg/0.5 Mg (3 Ml) Ud) 3 ml INH RQ6 [facility] Last Admin: 10/09/18 07:15 Dose: 3 ml Amlodipine Besylate (Norvasc) 5 mg PO DAILY [facility] Last Admin: 10/09/18 09:39 Dose: 5 mg Apixaban (Eliquis) 2.5 mg PO BID [facility] Last Admin: 10/09/18 09:39 Dose: 2.5 mg Aspirin (Ecotrin) 81 mg PO DAILY [facility] Last Admin: 10/09/18 09:44 Dose: 81 mg Furosemide (Lasix) 40 mg IVP Q12H [facility] Last Admin: 10/09/18 09:39 Dose: 40 mg Insulin Aspart (Novolog) 0 unit SC ACHS [facility]; Protocol Last Admin: 10/09/18 07:55 Dose: Not Given Isosorbide Mononitrate (Imdur Er) 30 mg PO DAILY [facility] Last Admin: 10/09/18 09:38 Dose: 30 mg Metformin HCl (Glucophage) 500 mg PO BID [facility] Last Admin: 10/09/18 09:39 Dose: 500 mg Metoprolol Tartrate (Lopressor) 25 mg PO DAILY [facility] Last Admin: 10/09/18 09:40 Dose: 25 mg Multivitamins (Hexavitamin) 1 tab PO DAILY [facility] Last Admin: 10/09/18 09:39 Dose: 1 tab Ranolazine (Ranexa) 500 mg PO BID [facility] Last Admin: 10/09/18 09:39 Dose: 500 mg Rosuvastatin Calcium (Crestor) 5 mg PO HS [facility] Last Admin: 10/08/18 21:46 Dose: 5 mg Physical Exam - Constitutional Appears: Well, Non-toxic - Head Exam Head Exam: ATRAUMATIC, NORMAL INSPECTION - Eye Exam Eye Exam: PERRL. absent: Scleral icterus - ENT Exam ENT Exam: Mucous Membranes Moist, Normal Exam, Normal External Ear Exam - Neck Exam Neck exam: Positive for: Full Rom. Negative for: Lymphadenopathy, Thyromegaly - Respiratory Exam Respiratory Exam: Clear to Auscultation Bilateral, NORMAL BREATHING PATTERN - Cardiovascular Exam Cardiovascular Exam: Irregular Rhythm, RRR, +S1, +S2, Systolic Murmur. absent: JVD - GI/Abdominal Exam GI & Abdominal Exam: Normal Bowel Sounds. absent: Organomegaly - Extremities Exam Extremities exam: Negative for: calf tenderness, pedal edema - Neurological Exam Neurological exam: CN II-XII Intact, Oriented x3 - Psychiatric Exam Psychiatric exam: Normal Affect, Normal Mood Results - Vital Signs Recent Vital Signs: Last Vital Signs Temp 98.2 F 10/09/18 07:00 Pulse 76 10/09/18 12:51 Resp 20 10/09/18 07:00 BP 117/64 10/09/18 09:42 Pulse Ox 93 L 02/20/19 12:51 - Labs Result Diagrams: 10/09/18 06:54 10/09/18 06:54 Labs: Laboratory Results - last 24 hr 10/08/18 10/08/18 10/08/18 15:05 16:21 21:07 WBC RBC Hgb Hct MCV MCH MCHC RDW Plt Count MPV Neut % (Auto) Lymph % (Auto) [place] % (Auto) Eos % (Auto) Baso % (Auto) Neut # (Auto) Lymph # (Auto) [place] # (Auto) Eos # (Auto) Baso # (Auto) Sodium Potassium Chloride Carbon Dioxide Anion Gap BUN Creatinine Est GFR ( Amer) Est GFR (Non-Af Amer) POC Glucose (mg/dL) 175 H 239 H Random Glucose Calcium Total Bilirubin AST ALT Alkaline Phosphatase Total Creatine Kinase 22 L CK-MB (Mass) 0.71 Troponin I < 0.0120 Total Protein Albumin Globulin Albumin/Globulin Ratio 10/08/18 10/09/18 10/09/18 22:33 06:32 06:54 WBC RBC Hgb Hct MCV MCH MCHC RDW Plt Count MPV Neut % (Auto) Lymph % (Auto) [place] % (Auto) Eos % (Auto) Baso % (Auto) Neut # (Auto) Lymph # (Auto) [place] # (Auto) Eos # (Auto) Baso # (Auto) Sodium Potassium Chloride Carbon Dioxide Anion Gap BUN Creatinine Est GFR ( Amer) Est GFR (Non-Af Amer) POC Glucose (mg/dL) 135 H Random Glucose Calcium Total Bilirubin AST ALT Alkaline Phosphatase Total Creatine Kinase 26 L 26 L CK-MB (Mass) 0.40 0.48 Troponin I < 0.0120 0.0150 Total Protein Albumin Globulin Albumin/Globulin Ratio 10/09/18 10/09/18 10/09/18 06:54 06:54 10:52 WBC 9.6 RBC 3.99 Hgb 10.4 L Hct 33.5 L MCV 84.1 MCH 26.2 L MCHC 31.1 L RDW 16.2 H Plt Count 189 MPV 11.4 Neut % (Auto) 62.9 Lymph % (Auto) 27.4 [place] % (Auto) 7.3 Eos % (Auto) 1.8 Baso % (Auto) 0.6 Neut # (Auto) 6.0 Lymph # (Auto) 2.6 [place] # (Auto) 0.7 Eos # (Auto) 0.2 Baso # (Auto) 0.1 Sodium 138 Potassium 3.8 Chloride 97 L Carbon Dioxide 36 H Anion Gap 9 L BUN 20 H Creatinine 1.1 Est GFR ( Amer) 57 Est GFR (Non-Af Amer) 47 POC Glucose (mg/dL) 227 H Random Glucose 131 H Calcium 9.2 Total Bilirubin 0.6 AST 28 ALT 10 Alkaline Phosphatase 72 Total Creatine Kinase CK-MB (Mass) Troponin I Total Protein 6.5 Albumin 3.8 Globulin 2.6 Albumin/Globulin Ratio 1.4 - EKG Data EKG Interpreted by: Myself Rate: Tachycardia (Atrial fibrillation ) - Imaging and Cardiology Chest x-ray Status: Image reviewed by me Additional comment: Pulmonary edema, small effusions Assessment & Plan - Assessment and Plan (Free Text) Assessment: 87 year old female with acute on chronic diastolic CHF improving with lasix and Bipap HTN is chronic and stable on norvasc Afib is rate controlled with metoprolol, Continue DOAC for CVA prophylaxsis DM is chornic and stable on metformin Angina is chronic and stable on ranexa and imdur When respiratory status is stable d/c planning
[2018-10-09] MEDS ORDERED: Bisacodyl 5mg EC Tab PO ONE (13:30)
--- NOTE | 2018-10-09 14:37 | CP.PCM.PN ---
Subjective - Date & Time of Evaluation Date of Evaluation: 10/09/18 Time of Evaluation: 14:36 - Subjective Subjective: Patient is seen and examined No events overnight Objective - Vital Signs/Intake and Output Vital Signs (last 24 hours): Temp Pulse Resp BP Pulse Ox 98.2 F 76 20 117/64 93 L 10/09/18 07:00 10/09/18 12:51 10/09/18 07:00 10/09/18 09:42 10/09/18 12:51 - Medications Medications: Current Medications Albuterol/Ipratropium (Duoneb 3 Mg/0.5 Mg (3 Ml) Ud) 3 ml INH RQ6 [facility] Last Admin: 10/09/18 07:15 Dose: 3 ml Amlodipine Besylate (Norvasc) 5 mg PO DAILY [facility] Last Admin: 10/09/18 09:39 Dose: 5 mg Apixaban (Eliquis) 2.5 mg PO BID [facility] Last Admin: 10/09/18 09:39 Dose: 2.5 mg Aspirin (Ecotrin) 81 mg PO DAILY [facility] Last Admin: 10/09/18 09:44 Dose: 81 mg Furosemide (Lasix) 40 mg IVP Q12H [facility] Last Admin: 10/09/18 09:39 Dose: 40 mg Insulin Aspart (Novolog) [address] [facility]; Protocol Last Admin: 10/09/18 12:30 Dose: Not Given Isosorbide Mononitrate (Imdur Er) 30 mg PO DAILY [facility] Last Admin: 10/09/18 09:38 Dose: 30 mg Metformin HCl (Glucophage) 500 mg PO BID [facility] Last Admin: 10/09/18 09:39 Dose: 500 mg Metoprolol Tartrate (Lopressor) 25 mg PO DAILY [facility] Last Admin: 10/09/18 09:40 Dose: 25 mg Multivitamins (Hexavitamin) 1 tab PO DAILY [facility] Last Admin: 10/09/18 09:39 Dose: 1 tab Ranolazine (Ranexa) 500 mg PO BID [facility] Last Admin: 10/09/18 09:39 Dose: 500 mg Rosuvastatin Calcium (Crestor) 5 mg PO HS [facility] Last Admin: 10/08/18 21:46 Dose: 5 mg - Labs Labs: 10/09/18 06:54 10/09/18 06:54 PT 12.8 SECONDS (9.7-12.2) H 10/08/18 07:03 INR 1.2 10/08/18 07:03 APTT 37 SECONDS (21-34) H 10/08/18 07:03 - Head Exam Head Exam: NORMAL INSPECTION - Eye Exam Eye Exam: Normal appearance - ENT Exam ENT Exam: Mucous Membranes Moist - Respiratory Exam Respiratory Exam: Clear to Ausculation Bilateral - Cardiovascular Exam Cardiovascular Exam: REGULAR RHYTHM, +S1, +S2 - GI/Abdominal Exam GI & Abdominal Exam: Soft, Normal Bowel Sounds - Extremities Exam Extremities Exam: Normal Inspection, Pedal Edema Assessment and Plan (1) CHF, acute Status: Acute (2) Chronic obstructive lung disease Status: Acute (3) Dyspnea Status: Acute (4) Diabetes Status: Chronic (5) HTN (hypertension) Status: Chronic - Assessment and Plan (Free Text) Plan: Lasix Keep pt negative balance BiPAP as needed Bronchodilators Accu check Insulin BP control DVT/GI prophalaxis
--- NOTE | 2018-10-09 17:24 | CP.PCM.PN ---
Subjective - Date & Time of Evaluation Date of Evaluation: 10/09/18 Time of Evaluation: 10:15 - Subjective Subjective: clinically same Objective - Vital Signs/Intake and Output Vital Signs (last 24 hours): Temp Pulse Resp BP Pulse Ox 97.9 F 85 20 136/76 99 10/09/18 16:30 10/09/18 16:30 10/09/18 16:30 10/09/18 16:30 10/09/18 16:30 - Medications Medications: Current Medications Albuterol/Ipratropium (Duoneb 3 Mg/0.5 Mg (3 Ml) Ud) 3 ml INH RQ6 [facility] Last Admin: 10/09/18 13:30 Dose: 3 ml Amlodipine Besylate (Norvasc) 5 mg PO DAILY [facility] Last Admin: 10/09/18 09:39 Dose: 5 mg Apixaban (Eliquis) 2.5 mg PO BID [facility] Last Admin: 10/09/18 09:39 Dose: 2.5 mg Aspirin (Ecotrin) 81 mg PO DAILY [facility] Last Admin: 10/09/18 09:44 Dose: 81 mg Furosemide (Lasix) 40 mg IVP Q12H [facility] Last Admin: 10/09/18 09:39 Dose: 40 mg Insulin Aspart (Novolog) 0 unit SC ACHS [facility]; Protocol Last Admin: 10/09/18 17:15 Dose: 2 unit Isosorbide Mononitrate (Imdur Er) 30 mg PO DAILY [facility] Last Admin: 10/09/18 09:38 Dose: 30 mg Metformin HCl (Glucophage) 500 mg PO BID [facility] Last Admin: 10/09/18 09:39 Dose: 500 mg Metoprolol Tartrate (Lopressor) 25 mg PO DAILY [facility] Last Admin: 10/09/18 09:40 Dose: 25 mg Multivitamins (Hexavitamin) 1 tab PO DAILY [facility] Last Admin: 10/09/18 09:39 Dose: 1 tab Ranolazine (Ranexa) 500 mg PO BID [facility] Last Admin: 10/09/18 09:39 Dose: 500 mg Rosuvastatin Calcium (Crestor) 5 mg PO HS [facility] Last Admin: 10/08/18 21:46 Dose: 5 mg - Labs Labs: 10/09/18 06:54 10/09/18 06:54 PT 12.8 SECONDS (9.7-12.2) H 10/08/18 07:03 INR 1.2 10/08/18 07:03 APTT 37 SECONDS (21-34) H 10/08/18 07:03
--- NOTE | 2018-10-09 22:03 | CARD ---
APPROVED REPORT Date of service: 10/08/2018 EKG Measurement Heart [id number] <Conclusion> Atrial fibrillation Low voltage QRS Left posterior fascicular block Cannot rule out Anteroseptal infarct, age undetermined Abnormal ECG
[2018-10-10] MEDS: Albuterol-Ipratrop 3 mg / 0.5 (3 ml) UD INH SCH ×4 (01:00→19:24)
[2018-10-10] MEDS: (Novolog) Insulin Aspart, Recombinant 100 u/ml 10 ml vial SC SCH ×4 (08:20→22:33)
[2018-10-10] MEDS: Multiple Vitamins Tab PO SCH (09:19)
[2018-10-10] MEDS: Ranolazine 500 mg Extended Release Tablets PO SCH ×2 (09:19→17:56)
--- NOTE | 2018-10-10 13:06 | CP.PCM.PN ---
Subjective - Date & Time of Evaluation Date of Evaluation: 10/10/18 Time of Evaluation: 13:05 - Subjective Subjective: Events reviewed. Objective - Vital Signs/Intake and Output Vital Signs (last 24 hours): Temp Pulse Resp BP Pulse Ox 97.9 F 86 20 114/59 L 98 10/10/18 08:00 10/10/18 09:17 10/10/18 08:00 10/10/18 09:19 10/10/18 08:00 - Medications Medications: Current Medications Albuterol/Ipratropium (Duoneb 3 Mg/0.5 Mg (3 Ml) Ud) 3 ml INH RQ6 [facility] Last Admin: 10/10/18 01:00 Dose: Not Given Amlodipine Besylate (Norvasc) 5 mg PO DAILY [facility] Last Admin: 10/10/18 09:19 Dose: 5 mg Apixaban (Eliquis) 2.5 mg PO BID [facility] Last Admin: 10/10/18 09:19 Dose: 2.5 mg Aspirin (Ecotrin) 81 mg PO DAILY [facility] Last Admin: 10/10/18 09:19 Dose: 81 mg Furosemide (Lasix) 40 mg IVP Q12H [facility] Last Admin: 10/10/18 09:19 Dose: 40 mg Insulin Aspart (Novolog) 0 unit SC ACHS [facility]; Protocol Last Admin: 10/10/18 08:20 Dose: 1 unit Isosorbide Mononitrate (Imdur Er) 30 mg PO DAILY [facility] Last Admin: 10/10/18 09:19 Dose: 30 mg Metformin HCl (Glucophage) 500 mg PO BID [facility] Last Admin: 10/10/18 09:19 Dose: 500 mg Metoprolol Tartrate (Lopressor) 25 mg PO DAILY [facility] Last Admin: 10/10/18 09:19 Dose: 25 mg Multivitamins (Hexavitamin) 1 tab PO DAILY [facility] Last Admin: 10/10/18 09:19 Dose: 1 tab Ranolazine (Ranexa) 500 mg PO BID [facility] Last Admin: 10/10/18 09:19 Dose: 500 mg Rosuvastatin Calcium (Crestor) 5 mg PO HS [facility] Last Admin: 10/09/18 22:06 Dose: 5 mg - Labs Labs: 10/09/18 06:54 10/09/18 06:54 PT 12.8 SECONDS (9.7-12.2) H 10/08/18 07:03 INR 1.2 10/08/18 07:03 APTT 37 SECONDS (21-34) H 10/08/18 07:03 Assessment and Plan - Assessment and Plan (Free Text) Assessment: Physical Exam - Constitutional Appears: Well, Non-toxic - Head Exam Head Exam: ATRAUMATIC, NORMAL INSPECTION - Eye Exam Eye Exam: PERRL. absent: Scleral icterus - ENT Exam ENT Exam: Mucous Membranes Moist, Normal Exam, Normal External Ear Exam - Neck Exam Neck exam: Positive for: Full Rom. Negative for: Lymphadenopathy, Thyromegaly - Respiratory Exam Respiratory Exam: Clear to Auscultation Bilateral, NORMAL BREATHING PATTERN - Cardiovascular Exam Cardiovascular Exam: Irregular Rhythm, RRR, +S1, +S2, Systolic Murmur. absent: JVD - GI/Abdominal Exam GI & Abdominal Exam: Normal Bowel Sounds. absent: Organomegaly - Extremities Exam Extremities exam: Negative for: calf tenderness, pedal edema - Neurological Exam Neurological exam: CN II-XII Intact, Oriented x3 - Psychiatric Exam Psychiatric exam: Normal Affect, Normal Mood - EKG Data EKG Interpreted by: Myself Rate: Tachycardia (Atrial fibrillation ) - Imaging and Cardiology Chest x-ray Status: Image reviewed by me Additional comment: Pulmonary edema, small effusions Assessment & Plan - Assessment and Plan (Free Text) Assessment: 87 year old female with acute on chronic diastolic CHF improving with lasix and Bipap, lower lasix to daily HTN is chronic and stable on norvasc Afib is rate controlled with metoprolol, Continue DOAC for CVA prophylaxsis DM is chornic and stable on metformin Angina is chronic and stable on ranexa and imdur When respiratory status is stable d/c planning
--- NOTE | 2018-10-10 18:31 | CP.PCM.PN ---
Subjective - Date & Time of Evaluation Date of Evaluation: 10/10/18 Time of Evaluation: 18:31 - Subjective Subjective: Patient is seen and examined Reports improved dyspnea Objective - Vital Signs/Intake and Output Vital Signs (last 24 hours): Temp Pulse Resp BP Pulse Ox 98 F 90 20 122/76 95 10/10/18 16:07 10/10/18 16:07 10/10/18 16:07 10/10/18 16:07 10/10/18 16:07 - Medications Medications: Current Medications Albuterol/Ipratropium (Duoneb 3 Mg/0.5 Mg (3 Ml) Ud) 3 ml INH RQ6 [facility] Last Admin: 10/10/18 13:14 Dose: 3 ml Amlodipine Besylate (Norvasc) 5 mg PO DAILY [facility] Last Admin: 10/10/18 09:19 Dose: 5 mg Apixaban (Eliquis) 2.5 mg PO BID [facility] Last Admin: 10/10/18 17:57 Dose: 2.5 mg Aspirin (Ecotrin) 81 mg PO DAILY [facility] Last Admin: 10/10/18 09:19 Dose: 81 mg Furosemide (Lasix) 40 mg IVP Q12H [facility] Last Admin: 10/10/18 09:19 Dose: 40 mg Insulin Aspart (Novolog) 0 unit SC ACHS [facility]; Protocol Last Admin: 10/10/18 17:57 Dose: 1 unit Isosorbide Mononitrate (Imdur Er) 30 mg PO DAILY [facility] Last Admin: 10/10/18 09:19 Dose: 30 mg Metformin HCl (Glucophage) 500 mg PO BID [facility] Last Admin: 10/10/18 17:57 Dose: 500 mg Metoprolol Tartrate (Lopressor) 25 mg PO DAILY [facility] Last Admin: 10/10/18 09:19 Dose: 25 mg Multivitamins (Hexavitamin) 1 tab PO DAILY [facility] Last Admin: 10/10/18 09:19 Dose: 1 tab Ranolazine (Ranexa) 500 mg PO BID [facility] Last Admin: 10/10/18 17:56 Dose: 500 mg Rosuvastatin Calcium (Crestor) 5 mg PO HS [facility] Last Admin: 10/09/18 22:06 Dose: 5 mg - Labs Labs: 10/09/18 06:54 10/09/18 06:54 PT 12.8 SECONDS (9.7-12.2) H 10/08/18 07:03 INR 1.2 10/08/18 07:03 APTT 37 SECONDS (21-34) H 10/08/18 07:03 - Head Exam Head Exam: NORMAL INSPECTION - Eye Exam Eye Exam: Normal appearance - ENT Exam ENT Exam: Mucous Membranes Moist - Respiratory Exam Respiratory Exam: Clear to Ausculation Bilateral - Cardiovascular Exam Cardiovascular Exam: REGULAR RHYTHM, +S1, +S2 - GI/Abdominal Exam GI & Abdominal Exam: Soft, Normal Bowel Sounds - Extremities Exam Extremities Exam: Normal Inspection Assessment and Plan (1) CHF, acute Status: Acute (2) Chronic obstructive lung disease Status: Acute (3) Dyspnea Status: Acute (4) Diabetes Status: Chronic (5) HTN (hypertension) Status: Chronic - Assessment and Plan (Free Text) Plan: Lasix Bronchodilators Accu check Insulin BP control DVT/GI prophalaxis
[2018-10-11] MEDS: Albuterol-Ipratrop 3 mg / 0.5 (3 ml) UD INH SCH ×2 (01:20→07:48)
[2018-10-11] MEDS: (Novolog) Insulin Aspart, Recombinant 100 u/ml 10 ml vial SC SCH ×2 (07:34→12:16)
[2018-10-11 08:40] VITALS: RESP 18; TEMP 97.7; O2SAT 99
[2018-10-11] MEDS: Ranolazine 500 mg Extended Release Tablets PO SCH (09:50)
[2018-10-11] MEDS: Multiple Vitamins Tab PO SCH (09:50)
--- NOTE | 2018-10-11 12:16 | CP.PCM.PN ---
Subjective - Date & Time of Evaluation Date of Evaluation: 10/11/18 Time of Evaluation: 12:15 Objective - Vital Signs/Intake and Output Vital Signs (last 24 hours): Temp Pulse Resp BP Pulse Ox 97.7 F 81 18 110/63 99 10/11/18 07:15 10/11/18 07:30 10/11/18 07:15 10/11/18 09:49 10/11/18 07:15 Intake and Output: 10/11/18 10/11/18 06:59 18:59 Intake Total 150 Balance 150 - Medications Medications: Current Medications Albuterol/Ipratropium (Duoneb 3 Mg/0.5 Mg (3 Ml) Ud) 3 ml INH RQ6 [facility] Last Admin: 10/11/18 07:48 Dose: 3 ml Amlodipine Besylate (Norvasc) 5 mg PO DAILY [facility] Last Admin: 10/11/18 09:50 Dose: 5 mg Apixaban (Eliquis) 2.5 mg PO BID [facility] Last Admin: 10/11/18 09:49 Dose: 2.5 mg Aspirin (Ecotrin) 81 mg PO DAILY [facility] Last Admin: 10/11/18 09:50 Dose: 81 mg Furosemide (Lasix) 40 mg PO DAILY [facility] Last Admin: 10/11/18 09:49 Dose: 40 mg Insulin Aspart (Novolog) 0 unit SC [facility]; Protocol Last Admin: 10/11/18 07:34 Dose: Not Given Isosorbide Mononitrate (Imdur Er) 30 mg PO DAILY [facility] Last Admin: 10/11/18 09:49 Dose: 30 mg Metformin HCl (Glucophage) 500 mg PO BID [facility] Last Admin: 10/11/18 09:50 Dose: 500 mg Metoprolol Tartrate (Lopressor) 25 mg PO DAILY [facility] Last Admin: 10/11/18 09:49 Dose: 25 mg Multivitamins (Hexavitamin) 1 tab PO DAILY [facility] Last Admin: 10/11/18 09:50 Dose: 1 tab Ranolazine (Ranexa) 500 mg PO BID [facility] Last Admin: 10/11/18 09:50 Dose: 500 mg Rosuvastatin Calcium (Crestor) 5 mg PO HS [facility] Last Admin: 10/10/18 21:23 Dose: 5 mg - Labs Labs: 10/09/18 06:54 10/09/18 06:54 PT 12.8 SECONDS (9.7-12.2) H 10/08/18 07:03 INR 1.2 10/08/18 07:03 APTT 37 SECONDS (21-34) H 10/08/18 07:03 Assessment and Plan - Assessment and Plan (Free Text) Assessment: FOLLOW UP WITH DR Ester COSTA IN HIS OFFICE ------CALL FOR APPOINTMNT FOLLOW UP WITH DR RAINEY IN HIS OFFICE ------CALL FOR APPOINTMENT FOLLOW UP WITH DR HUDSON IN HIS OFFICE ------CALL FOR APPOINTMENT CONTINUE HOME MEDICATION NEW PRESCRIPTION GIVEN LASIX 40 MG PO DAILY STOP TAKING LASIX TWICE A DAY PER REGIONAL SALES EXECUTIVE ACTIVITY TOLERATED CALL DR Ester COSTA OR GO TO THE EMERGENCY ROOM IF SYMPTOM RETURN OR WORSENING
[2018-10-11 13:21] VITALS: BP 106/63; PULSE 95
== END 2018-10-11 13:30 | disposition home or self-care (01) | DRG 293 ==
LOC: C.ER 06:47 → C.5S 07:39
PROVIDERS: ADMIT Internal Medicine Nephrology; ATTEND Internal Medicine Nephrology
PROC: 5A09457 Assistance with Respiratory Ventilation, 24-96 Consecutive Hours, Continuous Positive Airway Pressure (ICD-10-PCS; principal; 2018-10-08)
DX: I11.0 Hypertensive heart disease with heart failure (principal); E11.9 Type 2 diabetes mellitus without complications; I48.91 Unspecified atrial fibrillation; I50.33 Acute on chronic diastolic (congestive) heart failure; J44.9 Chronic obstructive pulmonary disease, unspecified; Z95.5 Presence of coronary angioplasty implant and graft; I20.9 Angina pectoris, unspecified; E78.00 Pure hypercholesterolemia, unspecified

== ENCOUNTER 2018-11-21 08:38 | Inpatient (IN) | payer MEDICARE, MEDICAID ==
[2018-11-21 08:38] VITALS: PULSE 76; BMI 36.6
--- NOTE | 2018-11-21 08:50 | C.PDOC ---
History Of Present Illness 87 year old female presents to ED with complaint of SOB, wheezing, and lower extremity edema for the past month, but has been getting worse the past couple of days. Patient states that she has not been feeling well. Patient denies chest pain, nausea, vomiting, and dizziness. Time Seen by Provider: 11/21/18 08:49 Chief Complaint (Nursing): Shortness Of Breath History Per: Patient History/Exam Limitations: no limitations Onset/Duration Of Symptoms: Days Current Symptoms Are (Timing): Still Present Quality: denies: "Pain" Associated Symptoms: Ankle/Leg Swelling. denies: Fever, Chills, Chest Pain, Dizziness Past Medical History Reviewed: Historical Data, Nursing Documentation, Vital Signs Vital Signs: Last Vital Signs Temp 97.8 F 11/21/18 08:46 Pulse 81 11/21/18 08:46 Resp 24 11/21/18 08:46 BP 138/77 11/21/18 08:46 Pulse Ox 100 11/21/18 08:46 - Medical History PMH: Asthma, Atrial Fibrillation, CHF, Diabetes, HTN, Hypercholesterolemia Denies: Chronic Kidney Disease Surgical History: Coronary Stent - [facility] Procedures ASSISTANCE WITH RESPIRATORY VENTILATION, 24-96 HRS, CPAP (10/08/18) ASSISTANCE WITH RESPIRATORY VENTILATION, <24 HRS, CPAP (05/02/16) Family History: States: Unknown Family Hx - Social History Hx Tobacco Use: No Hx Alcohol Use: No Hx Substance Use: No - Immunization History Hx Tetanus Toxoid Vaccination: No Hx Influenza Vaccination: Yes Hx Pneumococcal Vaccination: No Review Of Systems Constitutional: Negative for: Fever, Chills, Weakness Cardiovascular: Negative for: Chest Pain Respiratory: Positive for: Shortness of Breath, Wheezing Gastrointestinal: Negative for: Nausea, Vomiting Musculoskeletal: Positive for: Other (edema of the bilateral lower extremities) Neurological: Negative for: Weakness, Numbness, Dizziness Physical Exam - Physical Exam Appears: Well, Non-toxic, No Acute Distress Skin: Normal Color, Warm, Dry Head: Atraumatic, Normacephalic Neck: Normal ROM, Supple Chest: Symmetrical, No Deformity Cardiovascular: Rhythm Regular, No Murmur Respiratory: No Accessory Muscle Use, Rales (bilaterally), No Rhonchi, Wheezing (bilaterally) Gastrointestinal/Abdominal: Soft, No Tenderness Extremity: Pedal Edema (+1 bilaterally, mild) Neurological/Psych: Oriented x3, Normal Speech, Normal Cognition ED Course And Treatment - Laboratory Results Result Diagrams: 11/21/18 09:56 11/21/18 09:56 ECG: Interpreted By Me, Viewed By Me ECG Rhythm: Atrial Fibrillation Rate From EC O2 Sat by Pulse Oximetry: 100 (in RA) - Other Rad CXR X-Ray: Interpreted by Me, Viewed By Me Interpretation: Accession No. : [id number]. Patient Name / ID : IGOR DUBOIS C / [id number]. Exam Date : 11/21/2018 10:12:51 ( Approved ). Study Comment : Sex / Age : F / [id number]. Creator : Margarita Major MD. Dictator : Margarita Major MD. Health Records Technology Teacher : Wardrobe Attendant : Margarita Major MD. Approver2 : Report Date : 11/21/2018 11:39:24. My Comment : . HISTORY: SOB. COMPARISON: Chest x-ray performed 10/08/18. TECHNIQUE: Chest, one view. FINDINGS: Limited by habitus and hypoinflation. LUNGS: No focal consolidation. Please note that chest x-ray has limited sensitivity for the detection of pulmonary masses. PLEURA: No significant pleural effusion identified. No definite pneumothorax . CARDIOVASCULAR: Cardiomegaly. Atherosclerotic calcifications of the aorta. OSSEOUS STRUCTURES: Degenerative changes. VISUALIZED UPPER ABDOMEN: Mild elevation of the right hemidiaphragm. OTHER FINDINGS: None. IMPRESSION: Cardiomegaly. Hypoinflation. Progress Note: Labs ordered with CBC, CK-MB, and UA. CXR ordered for patient. Patient given Duoneb IH. - Physician Consult Information Physician Contacted: Garcia Menendez Outcome Of Conversation: accepted for observation Disposition - Disposition Disposition: HOSPITALIZED Disposition Time: 11:27 Condition: FAIR - Clinical Impression Clinical Impression: CHF (congestive heart failure) - PA / PROPOSAL EDITOR / Resident Statement MD/DO has reviewed & agrees with the documentation as recorded. (Jessica Conde) - Scribe Statement The provider has reviewed the documentation as recorded by the Scribe (Jessica Conde) All medical record entries made by the Scribe were at my direction and personally dictated by me. I have reviewed the chart and agree that the record accurately reflects my personal performance of the history, physical exam, medical decision making, and the department course for this patient. I have also personally directed, reviewed, and agree with the discharge instructions and dis position. Decision To Admit - Pt Status Changed To: Hospital Disposition Of: Observation - . Bed Request Type: Telemetry Admitting Physician: Garcia Menendez Patient Diagnosis: CHF (congestive heart failure)
[2018-11-21] MEDS ORDERED: Albuterol-Ipratrop 3 mg / 0.5 (3 ml) UD IH STA (09:17)
[2018-11-21 10:00] LABS: BASO # 0.1 K/uL (0.0-0.2); EOS # 0.1 K/uL (0.0-0.7); EOS % 1.6 % (0.0-4.0); HEMOGLOBIN 10.8 g/dL (11.0-16.0); LYMPH # 2.6 K/uL (1.0-4.3); LYMPH % 28.9 % (20.0-40.0); MEAN CELL VOLUME 83.1 fL (81.0-99.0); MEAN CORPUSCULAR HGB CONC 32.5 g/dL (33.0-37.0); MEAN PLATELET VOLUME 11.1 fL (7.2-11.7); MONO # 0.6 K/uL (0.0-0.8); NEUT # 5.6 K/uL (1.8-7.0); NEUT % 61.5 % (50.0-75.0); NRBC % 0.1 % (0.0-2.0); RBC 4.01 Mil/uL (3.80-5.20); RED CELL DISTRIBUTION WIDTH 17.3 % (11.5-14.5); WHITE BLOOD COUNT 9.1 K/uL (4.8-10.8)
[2018-11-21 10:06] LABS: SQUAMOUS EPITHIAL < 1 /hpf (0-5); URINE BILIRUBIN NEGATIVE (NEGATIVE); URINE BLOOD NEGATIVE (NEGATIVE); URINE CLARITY Clear (Clear); URINE COLOR Colorless (YELLOW); URINE GLUCOSE (UA) NORMAL (Normal); URINE LEUKOCYTE ESTERASE NEG Leu/uL (Negative); URINE PROTEIN NEGATIVE (NEGATIVE); URINE UROBILINOGEN NORMAL mg/dL (0.2-1.0)
[2018-11-21 10:10] LABS: INR 1.2; PROTHROMBIN TIME 13.5 SECONDS (9.7-12.2)
[2018-11-21 10:18] LABS: ALB/GLOB RATIO 1.5 (1.0-2.1); ALBUMIN 4.3 g/dL (3.5-5.0); CALCIUM 9.6 mg/dl (8.6-10.4)
[2018-11-21 10:25] LABS: CK-MB 0.88 ng/mL (0.0-3.38)
--- NOTE | 2018-11-21 11:43 | RAD ---
HISTORY: SOB COMPARISON: Chest x-ray performed 10/08/18 TECHNIQUE: Chest, one view. FINDINGS: Limited by habitus and hypoinflation. LUNGS: No focal consolidation. Please note that chest x-ray has limited sensitivity for the detection of pulmonary masses. PLEURA: No significant pleural effusion identified. No definite pneumothorax . CARDIOVASCULAR: Cardiomegaly. Atherosclerotic calcifications of the aorta. OSSEOUS STRUCTURES: Degenerative changes. VISUALIZED UPPER ABDOMEN: Mild elevation of the right hemidiaphragm. OTHER FINDINGS: None. IMPRESSION: Cardiomegaly. Hypoinflation.
[2018-11-21] MEDS ORDERED: Glucagon Recombinant 1 mg Inj IM PRN (14:14)
[2018-11-21] MEDS ORDERED: Dextrose 50% SYRINGE Inj (50 ml) IV PRN (14:14)
[2018-11-21] MEDS: Ranolazine 500 mg Extended Release Tablets PO SCH (18:02)
[2018-11-21] MEDS: (Novolog) Insulin Aspart, Recombinant 100 u/ml 10 ml vial SC SCH ×2 (18:02→21:34)
--- NOTE | 2018-11-21 18:23 | CP.PCM.HP ---
History of Present Illness - History of Present Illness History of Present Illness: 87 yo F with PMH of AFIB, Asthma, CHF, HTN, HLD, DM, CAD s/p coronary stent presents to ED for progressively worsening SOB a/w LE edema and wheezing ongoing since 1 month. 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 Pt reports general malaise. Denies fever, chills, cough, chest pain, palpitations, n/v/d, abdominal pain, dizziness, diaphoresis, dysuria. Pt on presentation noted to have congestive changes on CXR with clinical signs and symptoms of volume overload and supportive labs including elevated BNP 2500. Present on Admission - Present on Admission Any Indicators Present on Admission: No Review of Systems - Cardiovascular Cardiovascular: Dyspnea, Edema - Respiratory Respiratory: Dyspnea Past Patient History - Infectious Disease Hx of Infectious Diseases: None - Past Medical History & Family History Past Medical History?: Yes - Past Social History Smoking Status: Never Smoked - CARDIAC Hx Atrial Fibrillation: Yes Hx Congestive Heart Failure: Yes Hx Hypercholesterolemia: Yes Hx Hypertension: Yes - PULMONARY Hx Asthma: Yes - NEUROLOGICAL Hx Neurological Disorder: Yes - HEENT Hx HEENT Problems: No - RENAL Hx Chronic Kidney Disease: No - ENDOCRINE/METABOLIC Hx Diabetes Mellitus Type 2: Yes - HEMATOLOGICAL/ONCOLOGICAL Hx Blood Disorders: No - INTEGUMENTARY Hx Dermatological Problems: No - MUSCULOSKELETAL/RHEUMATOLOGICAL Hx Falls: No - GASTROINTESTINAL Hx Gastrointestinal Disorders: No - GENITOURINARY/GYNECOLOGICAL Hx Genitourinary Disorders: No - PSYCHIATRIC Hx Substance Use: No - SURGICAL HISTORY Hx Coronary Stent: Yes - ANESTHESIA Hx Anesthesia: No Hx Anesthesia Reactions: No Hx Malignant Hyperthermia: No Meds Allergies/Adverse Reactions: Allergies Allergy/AdvReac Type Severity Reaction Status Date / Time diltiazem HCl [From Cardizem] Allergy RASH Verified 11/21/18 08:48 garlic AdvReac Verified 11/21/18 08:48 onion AdvReac Verified 11/21/18 08:48 Physical Exam - Constitutional Appears: Well - Head Exam Head Exam: ATRAUMATIC, NORMAL INSPECTION, NORMOCEPHALIC - Eye Exam Eye Exam: EOMI, Normal appearance, PERRL Pupil Exam: NORMAL ACCOMODATION, PERRL - ENT Exam ENT Exam: Mucous Membranes Moist, Normal Exam - Neck Exam Neck exam: Positive for: Normal Inspection - Respiratory Exam Respiratory Exam: Decreased Breath Sounds - Cardiovascular Exam Cardiovascular Exam: Irregular Rhythm, +S1, +S2 Additional comments: EKG on presentation: AFIB rate controlled 86 bpm - GI/Abdominal Exam GI & Abdominal Exam: Diminished Bowel Sounds, Soft - Rectal Exam Rectal Exam: Deferred - Extremities Exam Extremities exam: Positive for: pedal edema Additional comments: bilateral LE edema Results - Vital Signs Recent Vital Signs: Last Vital Signs Temp 97.8 F 11/21/18 12:53 Pulse 91 H 11/21/18 15:14 Resp 18 11/21/18 12:53 BP 141/78 11/21/18 12:53 Pulse Ox 96 11/21/18 15:26 - Labs Result Diagrams: 11/21/18 09:56 11/21/18 09:56 Labs: Laboratory Results - last 24 hr 11/21/18 11/21/18 11/21/18 09:56 09:56 09:56 WBC 9.1 RBC 4.01 Hgb 10.8 L Hct 33.3 L MCV 83.1 MCH 27.0 MCHC 32.5 L RDW 17.3 H Plt Count 163 MPV 11.1 Neut % (Auto) 61.5 Lymph % (Auto) 28.9 [place] % (Auto) 7.0 Eos % (Auto) 1.6 Baso % (Auto) 1.0 Neut # (Auto) 5.6 Lymph # (Auto) 2.6 [place] # (Auto) 0.6 Eos # (Auto) 0.1 Baso # (Auto) 0.1 PT 13.5 H INR 1.2 APTT 40 H Sodium Potassium Chloride Carbon Dioxide Anion Gap BUN Creatinine Est GFR ( Amer) Est GFR (Non-Af Amer) Random Glucose Calcium Total Bilirubin AST ALT Alkaline Phosphatase Total Creatine Kinase CK-MB (Mass) NT-Pro-B Natriuret Pep Total Protein Albumin Globulin Albumin/Globulin Ratio Urine Color Colorless Urine Clarity Clear Urine pH 7.0 Ur Specific [place] 1.004 Urine Protein Negative Urine Glucose (UA) Normal Urine Ketones Negative Urine Blood Negative Urine Nitrate Negative Urine Bilirubin Negative Urine Urobilinogen Normal Ur Leukocyte Esterase Neg Urine WBC (Auto) < 1 Urine RBC (Auto) 1 Ur Squamous Epith Cells < 1 11/21/18 09:56 WBC RBC Hgb Hct MCV MCH MCHC RDW Plt Count MPV Neut % (Auto) Lymph % (Auto) [place] % (Auto) Eos % (Auto) Baso % (Auto) Neut # (Auto) Lymph # (Auto) [place] # (Auto) Eos # (Auto) Baso # (Auto) PT INR APTT Sodium 138 Potassium 4.9 Chloride 101 Carbon Dioxide 28 Anion Gap 15 BUN 18 H Creatinine 1.1 Est GFR ( Amer) 57 Est GFR (Non-Af Amer) 47 Random Glucose 130 H Calcium 9.6 Total Bilirubin 0.6 AST 22 ALT 7 L D Alkaline Phosphatase 74 Total Creatine Kinase 35 CK-MB (Mass) 0.88 NT-Pro-B Natriuret Pep 2500 H Total Protein 7.1 Albumin 4.3 Globulin 2.8 Albumin/Globulin Ratio 1.5 Urine Color Urine Clarity Urine pH Ur Specific [place] Urine Protein Urine Glucose (UA) Urine Ketones Urine Blood Urine Nitrate Urine Bilirubin Urine Urobilinogen Ur Leukocyte Esterase Urine WBC (Auto) Urine RBC (Auto) Ur Squamous Epith Cells Assessment & Plan (1) CHF (congestive heart failure) Status: Chronic (2) Ankle fracture, left Status: Acute (3) Atrial fibrillation with RVR Status: Acute (4) Atrial fibrillation with slow ventricular response Status: Acute (5) CHF, acute Status: Acute (6) Chronic obstructive lung disease Status: Acute (7) Dyspnea Status: Acute (8) Flash pulmonary edema Status: Acute (9) Prophylactic measure Status: Acute (10) Respiratory distress Status: Acute (11) Respiratory infection Status: Acute (12) TIA (transient ischemic attack) Status: Acute (13) Atrial fibrillation Status: Chronic (14) Chronic congestive heart failure Status: Chronic (15) Diabetes Status: Chronic (16) HTN (hypertension) Status: Chronic (17) Hyperlipidemia Status: Chronic - Assessment and Plan (Free Text) Plan: CHF exacerbation +sob +LE edema CXR : cardiomegaly atherosclerotic calcifications aorta . No pleural effusion. No focal consilidation. Hypoinflation lungs BNP 2500 observation w/tele sob improving with iv diuresis april diuresis with iv lasix 40 mg qd duonebs cardio consult Dr Azar AFIB - rate controlled EKG AFIB @86 bpm rate control w/ toprol 25 mg qd a/c eliquis 2.5 mg bid tele monitor HTN normotensive continue amlodipine 5 mg monitor BP CAD s/p coronary stent ASA Statin - Crestor 5 mg Imdur Ranexa DM Metformin Novolog ACHS Lyrica monitor for hypoglycemic/hyperglycemic episodes accuchecks Normocytic Anemia H&H stable Hb 10.3 RDW elevated monitor CBC VSS meds and labs reviewed april as ordered MVI daily HH diet as tolerated
[2018-11-22 01:25] VITALS: RESP 20
[2018-11-22] MEDS: (Novolog) Insulin Aspart, Recombinant 100 u/ml 10 ml vial SC SCH ×4 (07:59→22:00)
[2018-11-22] MEDS: Ranolazine 500 mg Extended Release Tablets PO SCH ×2 (08:59→18:09)
[2018-11-22] MEDS: Metoprolol Succinate 25 mg XL Tab PO SCH (09:04)
[2018-11-22] MEDS: Multiple Vitamins Tab PO SCH (09:05)
--- NOTE | 2018-11-22 18:09 | CP.PCM.PN ---
Subjective - Date & Time of Evaluation Date of Evaluation: 11/22/18 - Subjective Subjective: patient seen and examined no c/o pain at this time SOB improved s/p iv diuresis no nausea no diarrhea no fever no vomiting awaiting cardio eval Objective - Vital Signs/Intake and Output Vital Signs (last 24 hours): Temp Pulse Resp BP Pulse Ox 98.3 F 91 H 20 113/68 100 11/22/18 15:00 11/22/18 15:00 11/22/18 15:00 11/22/18 15:00 11/22/18 15:00 Intake and Output: 11/22/18 11/22/18 06:59 18:59 Intake Total 470 440 Balance 470 440 - Medications Medications: Current Medications Amlodipine Besylate (Norvasc) 5 mg PO DAILY [facility] Last Admin: 11/22/18 09:05 Dose: 5 mg Apixaban (Eliquis) 2.5 mg PO BID [facility] Last Admin: 11/22/18 08:59 Dose: 2.5 mg Aspirin (Ecotrin) 81 mg PO DAILY [facility] Last Admin: 11/22/18 09:05 Dose: 81 mg Dextrose (Dextrose 50% Inj) 0 ml IV STAT PRN; Protocol PRN Reason: Hypoglycemia Protocol Dextrose (Glutose 15) 0 gm PO ONCE PRN; Protocol PRN Reason: Hypoglycemia Protocol Furosemide (Lasix) 40 mg IVP DAILY [facility] Last Admin: 11/22/18 09:53 Dose: 40 mg Glucagon (Glucagen Diagnostic Kit) 0 mg IM STAT PRN; Protocol PRN Reason: Hypoglycemia Protocol Dextrose (Dextrose 5% In Water 1000 Ml) 1,000 mls @ 0 mls/hr IV .Q0M PRN; Protocol PRN Reason: Hypoglycemia Protocol Insulin Aspart (Novolog) 0 unit SC ACHS [facility]; Protocol Last Admin: 11/22/18 11:57 Dose: 2 units Isosorbide Mononitrate (Imdur Er) 30 mg PO DAILY [facility] Last Admin: 11/22/18 09:53 Dose: 30 mg Metformin HCl (Glucophage) 500 mg PO BID [facility] Last Admin: 11/22/18 08:59 Dose: 500 mg Metoprolol Succinate (Toprol Xl) 25 mg PO DAILY [facility] Last Admin: 11/22/18 09:04 Dose: 25 mg Multivitamins (Hexavitamin) 1 tab PO DAILY [facility] Last Admin: 11/22/18 09:05 Dose: 1 tab Pregabalin (Lyrica) 50 mg PO DAILY [facility] Last Admin: 11/22/18 10:40 Dose: 50 mg Ranolazine (Ranexa) 500 mg PO BID [facility] Last Admin: 11/22/18 08:59 Dose: 500 mg Rosuvastatin Calcium (Crestor) 5 mg PO HS [facility] Last Admin: 11/21/18 21:36 Dose: 5 mg - Labs Labs: 11/21/18 09:56 11/21/18 09:56 PT 13.5 SECONDS (9.7-12.2) H 11/21/18 09:56 INR 1.2 11/21/18 09:56 APTT 40 SECONDS (21-34) H 11/21/18 09:56 - Constitutional Appears: Well - Head Exam Head Exam: ATRAUMATIC, NORMAL INSPECTION, NORMOCEPHALIC - Eye Exam Eye Exam: EOMI, Normal appearance, PERRL Pupil Exam: NORMAL ACCOMODATION, PERRL - ENT Exam ENT Exam: Mucous Membranes Moist, Normal Exam - Neck Exam Neck Exam: Full ROM, Normal Inspection. absent: Lymphadenopathy - Respiratory Exam Respiratory Exam: Decreased Breath Sounds - Cardiovascular Exam Cardiovascular Exam: REGULAR RHYTHM, +S1, +S2 - GI/Abdominal Exam GI & Abdominal Exam: Soft, Diminished Bowel Sounds - Rectal Exam Rectal Exam: Deferred - Neurological Exam Neurological Exam: Oriented x3 Assessment and Plan - Assessment and Plan (Free Text) Plan: Crestor Dextrose Dextrose 50% injection Ecotrin Eliquis GlucaGen diagnostic Glucophage Glutose 15 Takes no vitamin Imdur ER Lasix Lyrica Norvasc NovoLog Ranexa Toprol XL cardio consult Dr Azar Labs reviewed vitals reviewed medications reviewed
[2018-11-23] MEDS: (Novolog) Insulin Aspart, Recombinant 100 u/ml 10 ml vial SC SCH ×5 (08:22→21:59)
[2018-11-23] MEDS: Multiple Vitamins Tab PO SCH (09:03)
[2018-11-23] MEDS: Ranolazine 500 mg Extended Release Tablets PO SCH ×2 (09:03→17:26)
[2018-11-23] MEDS: Metoprolol Succinate 25 mg XL Tab PO SCH (09:03)
--- NOTE | 2018-11-23 19:41 | CP.PCM.PN ---
Subjective - Date & Time of Evaluation Date of Evaluation: 11/23/18 Time of Evaluation: 03:15 - Subjective Subjective: Awaiting to see Dr. ayala joycenadege discharge planning spoke to the son most likely may discharge tomorrow if it is seen by cardiology and cleared by cardiology before the discharge Abdomen leg swelling has gone down significantly Continue IV Lasix Patient still short of breath Denies chest pain No nausea no vomiting no constipation's Objective - Vital Signs/Intake and Output Vital Signs (last 24 hours): Temp Pulse Resp BP Pulse Ox 98.1 F 82 20 109/68 98 11/23/18 16:00 11/23/18 16:00 11/23/18 16:00 11/23/18 16:00 11/23/18 16:00 Intake and Output: 11/23/18 11/24/18 18:59 06:59 Intake Total 400 Balance 400 - Medications Medications: Current Medications Amlodipine Besylate (Norvasc) 5 mg PO DAILY [facility] Last Admin: 11/23/18 09:02 Dose: 5 mg Apixaban (Eliquis) 2.5 mg PO BID [facility] Last Admin: 11/23/18 17:27 Dose: 2.5 mg Aspirin (Ecotrin) 81 mg PO DAILY [facility] Last Admin: 11/23/18 09:02 Dose: 81 mg Dextrose (Dextrose 50% Inj) 0 ml IV STAT PRN; Protocol PRN Reason: Hypoglycemia Protocol Dextrose (Glutose 15) 0 gm PO ONCE PRN; Protocol PRN Reason: Hypoglycemia Protocol Furosemide (Lasix) 40 mg IVP DAILY [facility] Last Admin: 11/23/18 09:06 Dose: 40 mg Glucagon (Glucagen Diagnostic Kit) 0 mg IM STAT PRN; Protocol PRN Reason: Hypoglycemia Protocol Dextrose (Dextrose 5% In Water 1000 Ml) 1,000 mls @ 0 mls/hr IV .Q0M PRN; Protocol PRN Reason: Hypoglycemia Protocol Insulin Aspart (Novolog) 0 unit SC ACHS [facility]; Protocol Last Admin: 11/23/18 17:13 Dose: Not Given Isosorbide Mononitrate (Imdur Er) 30 mg PO DAILY [facility] Last Admin: 11/23/18 09:06 Dose: 30 mg Metformin HCl (Glucophage) 500 mg PO BID [facility] Last Admin: 11/23/18 17:26 Dose: 500 mg Metoprolol Succinate (Toprol Xl) 25 mg PO DAILY [facility] Last Admin: 11/23/18 09:03 Dose: 25 mg Multivitamins (Hexavitamin) 1 tab PO DAILY [facility] Last Admin: 11/23/18 09:03 Dose: 1 tab Pregabalin (Lyrica) 50 mg PO DAILY [facility] Last Admin: 11/23/18 09:02 Dose: 50 mg Ranolazine (Ranexa) 500 mg PO BID [facility] Last Admin: 11/23/18 17:26 Dose: 500 mg Rosuvastatin Calcium (Crestor) 5 mg PO HS [facility] Last Admin: 11/22/18 22:03 Dose: 5 mg - Labs Labs: 11/21/18 09:56 11/21/18 09:56 PT 13.5 SECONDS (9.7-12.2) H 11/21/18 09:56 INR 1.2 11/21/18 09:56 APTT 40 SECONDS (21-34) H 11/21/18 09:56 - Constitutional Appears: Well - Head Exam Head Exam: ATRAUMATIC, NORMAL INSPECTION, NORMOCEPHALIC - Eye Exam Eye Exam: EOMI, Normal appearance, PERRL Pupil Exam: NORMAL ACCOMODATION, PERRL - ENT Exam ENT Exam: Mucous Membranes Moist, Normal Exam - Neck Exam Neck Exam: Full ROM, Normal Inspection. absent: Lymphadenopathy - Respiratory Exam Respiratory Exam: Decreased Breath Sounds - Cardiovascular Exam Cardiovascular Exam: REGULAR RHYTHM, +S1, +S2 - GI/Abdominal Exam GI & Abdominal Exam: Soft, Diminished Bowel Sounds - Rectal Exam Rectal Exam: Deferred - Neurological Exam Neurological Exam: Oriented x3 Assessment and Plan (1) CHF (congestive heart failure) Status: Chronic (2) Ankle fracture, left Status: Acute (3) Atrial fibrillation with RVR Status: Acute (4) Atrial fibrillation with slow ventricular response Status: Acute (5) CHF, acute Status: Acute (6) Chronic obstructive lung disease Status: Acute (7) Dyspnea Status: Acute (8) Flash pulmonary edema Status: Acute (9) Prophylactic measure Status: Acute (10) Respiratory distress Status: Acute (11) Respiratory infection Status: Acute (12) TIA (transient ischemic attack) Status: Acute (13) Atrial fibrillation Status: Chronic (14) Chronic congestive heart failure Status: Chronic (15) Diabetes Status: Chronic (16) HTN (hypertension) Status: Chronic (17) Hyperlipidemia Status: Chronic - Assessment and Plan (Free Text) Plan: medications reviewed labs reviewed vitals reviewed crestor dextrose 5% in water dextrose 50% inj ecotrin eliquis glucagen diagnostic kit glucophage glutose 15 hexavitamin imdur er lasix lyrica norvasc novolog ranexa toprol XL Awaiting to be seen by cardiology I discussed with the son Discharge planning Continue medication as ordered
[2018-11-24] MEDS: (Novolog) Insulin Aspart, Recombinant 100 u/ml 10 ml vial SC SCH ×4 (07:30→22:06)
[2018-11-24] MEDS: Metoprolol Succinate 25 mg XL Tab PO SCH (09:03)
[2018-11-24] MEDS: Multiple Vitamins Tab PO SCH (09:03)
[2018-11-24] MEDS: Ranolazine 500 mg Extended Release Tablets PO SCH ×2 (09:06→18:12)
--- NOTE | 2018-11-24 10:10 | CP.PCM.PN ---
Subjective - Date & Time of Evaluation Date of Evaluation: 11/24/18 - Subjective Subjective: Patient seen and examined today No nausea No vomiting No fever No diarrhea No dizziness No shortness of breath Objective - Vital Signs/Intake and Output Vital Signs (last 24 hours): Temp Pulse Resp BP Pulse Ox 98.4 F 93 H 20 143/76 99 11/24/18 08:48 11/24/18 08:48 11/24/18 08:48 11/24/18 08:48 11/24/18 08:48 Intake and Output: 11/24/18 11/24/18 06:59 18:59 Intake Total 500 Balance 500 - Medications Medications: Current Medications Amlodipine Besylate (Norvasc) 5 mg PO DAILY [facility] Last Admin: 11/24/18 09:03 Dose: 5 mg Apixaban (Eliquis) 2.5 mg PO BID [facility] Last Admin: 11/24/18 09:03 Dose: 2.5 mg Aspirin (Ecotrin) 81 mg PO DAILY [facility] Last Admin: 11/24/18 09:03 Dose: 81 mg Dextrose (Dextrose 50% Inj) 0 ml IV STAT PRN; Protocol PRN Reason: Hypoglycemia Protocol Dextrose (Glutose 15) 0 gm PO ONCE PRN; Protocol PRN Reason: Hypoglycemia Protocol Furosemide (Lasix) 40 mg IVP DAILY [facility] Last Admin: 11/23/18 09:06 Dose: 40 mg Glucagon (Glucagen Diagnostic Kit) 0 mg IM STAT PRN; Protocol PRN Reason: Hypoglycemia Protocol Dextrose (Dextrose 5% In Water 1000 Ml) 1,000 mls @ 0 mls/hr IV .Q0M PRN; Protocol PRN Reason: Hypoglycemia Protocol Insulin Aspart (Novolog) 0 unit SC ACHS [facility]; Protocol Last Admin: 11/24/18 07:30 Dose: Not Given Isosorbide Mononitrate (Imdur Er) 30 mg PO DAILY [facility] Last Admin: 11/24/18 09:09 Dose: 30 mg Metformin HCl (Glucophage) 500 mg PO BID [facility] Last Admin: 11/24/18 09:03 Dose: 500 mg Metoprolol Succinate (Toprol Xl) 25 mg PO DAILY [facility] Last Admin: 11/24/18 09:03 Dose: 25 mg Multivitamins (Hexavitamin) 1 tab PO DAILY [facility] Last Admin: 11/24/18 09:03 Dose: 1 tab Pregabalin (Lyrica) 50 mg PO DAILY [facility] Last Admin: 11/24/18 09:03 Dose: 50 mg Ranolazine (Ranexa) 500 mg PO BID [facility] Last Admin: 11/24/18 09:06 Dose: 500 mg Rosuvastatin Calcium (Crestor) 5 mg PO HS [facility] Last Admin: 11/23/18 21:56 Dose: 5 mg - Labs Labs: 11/21/18 09:56 11/21/18 09:56 PT 13.5 SECONDS (9.7-12.2) H 11/21/18 09:56 INR 1.2 11/21/18 09:56 APTT 40 SECONDS (21-34) H 11/21/18 09:56 - Constitutional Appears: Well - Head Exam Head Exam: ATRAUMATIC, NORMAL INSPECTION, NORMOCEPHALIC - Eye Exam Eye Exam: EOMI, Normal appearance, PERRL Pupil Exam: NORMAL ACCOMODATION, PERRL - ENT Exam ENT Exam: Mucous Membranes Moist, Normal Exam - Neck Exam Neck Exam: Full ROM, Normal Inspection. absent: Lymphadenopathy - Respiratory Exam Respiratory Exam: Decreased Breath Sounds - Cardiovascular Exam Cardiovascular Exam: REGULAR RHYTHM, +S1, +S2 - GI/Abdominal Exam GI & Abdominal Exam: Soft, Diminished Bowel Sounds - Rectal Exam Rectal Exam: Deferred - Neurological Exam Neurological Exam: Oriented x3 Assessment and Plan (1) CHF (congestive heart failure) Status: Chronic (2) Ankle fracture, left Status: Acute (3) Atrial fibrillation with RVR Status: Acute (4) Atrial fibrillation with slow ventricular response Status: Acute (5) CHF, acute Status: Acute (6) Chronic obstructive lung disease Status: Acute (7) Dyspnea Status: Acute (8) Flash pulmonary edema Status: Acute (9) Prophylactic measure Status: Acute (10) Respiratory distress Status: Acute (11) Respiratory infection Status: Acute (12) TIA (transient ischemic attack) Status: Acute (13) Atrial fibrillation Status: Chronic (14) Chronic congestive heart failure Status: Chronic (15) Diabetes Status: Chronic (16) HTN (hypertension) Status: Chronic (17) Hyperlipidemia Status: Chronic - Assessment and Plan (Free Text) Plan: crestor dextrose 50%inj ecotrin eliquis glucagen diagnostic kit glucophage glutose 15 hexavitamin imdur er lasix lyrica norvasc novolog ranexa toprol xl medications reviewed labs reviewed vitals reviewed
--- NOTE | 2018-11-24 19:46 | CARD ---
APPROVED REPORT Date of service: 11/21/2018 EKG Measurement Heart [id number] <Conclusion> Atrial fibrillation Rightward axis Low voltage QRS Anteroseptal infarct, age undetermined Abnormal ECG
[2018-11-25] MEDS: (Novolog) Insulin Aspart, Recombinant 100 u/ml 10 ml vial SC SCH ×3 (08:06→17:42)
[2018-11-25] MEDS: Ranolazine 500 mg Extended Release Tablets PO SCH ×2 (10:38→17:42)
[2018-11-25] MEDS: Metoprolol Succinate 25 mg XL Tab PO SCH (10:38)
[2018-11-25] MEDS: Multiple Vitamins Tab PO SCH (10:38)
--- NOTE | 2018-11-25 13:48 | CP.PCM.PN ---
Subjective - Date & Time of Evaluation Date of Evaluation: 11/25/18 - Subjective Subjective: Patient seen and examined today No nausea No vomiting No fever No diarrhea No dizziness No shortness of breath Objective - Vital Signs/Intake and Output Vital Signs (last 24 hours): Temp Pulse Resp BP Pulse Ox 97.7 F 77 20 150/81 95 11/25/18 07:00 11/25/18 07:00 11/25/18 07:00 11/25/18 10:38 11/25/18 07:00 Intake and Output: 11/25/18 11/25/18 06:59 18:59 Intake Total 420 Balance 420 - Medications Medications: Current Medications Amlodipine Besylate (Norvasc) 5 mg PO DAILY [facility] Last Admin: 11/25/18 10:37 Dose: 5 mg Apixaban (Eliquis) 2.5 mg PO BID [facility] Last Admin: 11/25/18 10:37 Dose: 2.5 mg Aspirin (Ecotrin) 81 mg PO DAILY [facility] Last Admin: 11/25/18 10:38 Dose: 81 mg Dextrose (Dextrose 50% Inj) 0 ml IV STAT PRN; Protocol PRN Reason: Hypoglycemia Protocol Dextrose (Glutose 15) 0 gm PO ONCE PRN; Protocol PRN Reason: Hypoglycemia Protocol Furosemide (Lasix) 40 mg IVP DAILY [facility] Last Admin: 11/25/18 10:38 Dose: 40 mg Glucagon (Glucagen Diagnostic Kit) 0 mg IM STAT PRN; Protocol PRN Reason: Hypoglycemia Protocol Insulin Aspart (Novolog) 0 unit SC [facility]; Protocol Last Admin: 11/25/18 12:24 Dose: 1 units Isosorbide Mononitrate (Imdur Er) 30 mg PO DAILY [facility] Last Admin: 11/25/18 10:37 Dose: 30 mg Metformin HCl (Glucophage) 500 mg PO BID [facility] Last Admin: 11/25/18 10:38 Dose: 500 mg Metoprolol Succinate (Toprol Xl) 25 mg PO DAILY [facility] Last Admin: 11/25/18 10:38 Dose: 25 mg Multivitamins (Hexavitamin) 1 tab PO DAILY [facility] Last Admin: 11/25/18 10:38 Dose: 1 tab Pregabalin (Lyrica) 50 mg PO DAILY [facility] Last Admin: 11/25/18 10:37 Dose: 50 mg Ranolazine (Ranexa) 500 mg PO BID [facility] Last Admin: 11/25/18 10:38 Dose: 500 mg Rosuvastatin Calcium (Crestor) 5 mg PO HS [facility] Last Admin: 11/24/18 21:38 Dose: 5 mg - Labs Labs: 11/21/18 09:56 11/21/18 09:56 PT 13.5 SECONDS (9.7-12.2) H 11/21/18 09:56 INR 1.2 11/21/18 09:56 APTT 40 SECONDS (21-34) H 11/21/18 09:56 - Constitutional Appears: Well - Head Exam Head Exam: ATRAUMATIC, NORMAL INSPECTION, NORMOCEPHALIC - Eye Exam Eye Exam: EOMI, Normal appearance, PERRL Pupil Exam: NORMAL ACCOMODATION, PERRL - ENT Exam ENT Exam: Mucous Membranes Moist, Normal Exam - Neck Exam Neck Exam: Full ROM, Normal Inspection. absent: Lymphadenopathy - Respiratory Exam Respiratory Exam: Decreased Breath Sounds - Cardiovascular Exam Cardiovascular Exam: REGULAR RHYTHM, +S1, +S2 - GI/Abdominal Exam GI & Abdominal Exam: Soft, Diminished Bowel Sounds - Rectal Exam Rectal Exam: Deferred - Neurological Exam Neurological Exam: Oriented x3 Assessment and Plan (1) CHF (congestive heart failure) Status: Chronic (2) Ankle fracture, left Status: Acute (3) Atrial fibrillation with RVR Status: Acute (4) Atrial fibrillation with slow ventricular response Status: Acute (5) CHF, acute Status: Acute (6) Chronic obstructive lung disease Status: Acute (7) Dyspnea Status: Acute (8) Flash pulmonary edema Status: Acute (9) Prophylactic measure Status: Acute (10) Respiratory distress Status: Acute (11) Respiratory infection Status: Acute (12) TIA (transient ischemic attack) Status: Acute (13) Atrial fibrillation Status: Chronic (14) Chronic congestive heart failure Status: Chronic (15) Diabetes Status: Chronic (16) HTN (hypertension) Status: Chronic (17) Hyperlipidemia Status: Chronic - Assessment and Plan (Free Text) Plan: medications reviewed labs reviewed vitals reviewed
--- NOTE | 2018-11-25 15:35 | CP.PCM.PN ---
Subjective - Date & Time of Evaluation Date of Evaluation: 11/25/18 Time of Evaluation: 15:34 - Subjective Subjective: PATIENT SEEN AND EXAMINED AT THE BEDSIDE Objective - Vital Signs/Intake and Output Vital Signs (last 24 hours): Temp Pulse Resp BP Pulse Ox 97.7 F 77 20 150/81 95 11/25/18 07:00 11/25/18 07:00 11/25/18 07:00 11/25/18 10:38 11/25/18 07:00 Intake and Output: 11/25/18 11/25/18 06:59 18:59 Intake Total 420 600 Balance 420 600 - Medications Medications: Current Medications Amlodipine Besylate (Norvasc) 5 mg PO DAILY [facility] Last Admin: 11/25/18 10:37 Dose: 5 mg Apixaban (Eliquis) 2.5 mg PO BID [facility] Last Admin: 11/25/18 10:37 Dose: 2.5 mg Aspirin (Ecotrin) 81 mg PO DAILY [facility] Last Admin: 11/25/18 10:38 Dose: 81 mg Dextrose (Dextrose 50% Inj) 0 ml IV STAT PRN; Protocol PRN Reason: Hypoglycemia Protocol Dextrose (Glutose 15) 0 gm PO ONCE PRN; Protocol PRN Reason: Hypoglycemia Protocol Furosemide (Lasix) 40 mg IVP DAILY [facility] Last Admin: 11/25/18 10:38 Dose: 40 mg Glucagon (Glucagen Diagnostic Kit) 0 mg IM STAT PRN; Protocol PRN Reason: Hypoglycemia Protocol Insulin Aspart (Novolog) 0 unit SC [facility]; Protocol Last Admin: 11/25/18 12:24 Dose: 1 units Isosorbide Mononitrate (Imdur Er) 30 mg PO DAILY [facility] Last Admin: 11/25/18 10:37 Dose: 30 mg Metformin HCl (Glucophage) 500 mg PO BID [facility] Last Admin: 11/25/18 10:38 Dose: 500 mg Metoprolol Succinate (Toprol Xl) 25 mg PO DAILY [facility] Last Admin: 11/25/18 10:38 Dose: 25 mg Multivitamins (Hexavitamin) 1 tab PO DAILY [facility] Last Admin: 11/25/18 10:38 Dose: 1 tab Pregabalin (Lyrica) 50 mg PO DAILY [facility] Last Admin: 11/25/18 10:37 Dose: 50 mg Ranolazine (Ranexa) 500 mg PO BID [facility] Last Admin: 11/25/18 10:38 Dose: 500 mg Rosuvastatin Calcium (Crestor) 5 mg PO HS [facility] Last Admin: 11/24/18 21:38 Dose: 5 mg - Labs Labs: 11/21/18 09:56 11/21/18 09:56 PT 13.5 SECONDS (9.7-12.2) H 11/21/18 09:56 INR 1.2 11/21/18 09:56 APTT 40 SECONDS (21-34) H 11/21/18 09:56 Assessment and Plan - Assessment and Plan (Free Text) Assessment: FOLLOW UP WITH DR Ester COSTA IN HIS OFFICE ------CALL FOR APPOINTMENT FOLLOW UP WITH DR GIORDANO IN HIS OFFICE CONTINUE HOME MEDICATION ACTIVITY TOLERATED CALL DR Ester COSTA OR GO TO THE EMERGENCY ROOM IF SYMPTOM RETURN OR WORSENING
[2018-11-25 16:42] VITALS: BP 109/65; PULSE 78; TEMP 98.2; O2SAT 98
--- NOTE | 2018-11-25 21:36 | CP.PCM.DIS ---
Provider - Provider Date of Admission: 11/23/18 16:41 Attending physician: Fernandez Costa MD Consults: 11/21/18 11:24 Cardiology Consult Stat Comment: CHF exacerbation Consulting Provider: Kirit Giordano Consulting Physician: Kirit Giordano Reason for Consult: CHF exacerbation Time Spent in preparation of Discharge (in minutes): 20 Diagnosis - Discharge Diagnosis (1) CHF (congestive heart failure) Status: Chronic (2) Ankle fracture, left Status: Acute (3) Atrial fibrillation with RVR Status: Acute (4) Atrial fibrillation with slow ventricular response Status: Acute (5) CHF, acute Status: Acute (6) Chronic obstructive lung disease Status: Acute (7) Dyspnea Status: Acute (8) Flash pulmonary edema Status: Acute (9) Prophylactic measure Status: Acute (10) Respiratory distress Status: Acute (11) Respiratory infection Status: Acute (12) TIA (transient ischemic attack) Status: Acute (13) Atrial fibrillation Status: Chronic (14) Chronic congestive heart failure Status: Chronic (15) Diabetes Status: Chronic (16) HTN (hypertension) Status: Chronic (17) Hyperlipidemia Status: Chronic Hospital Course - Lab Results Lab Results: Most Recent Lab Values WBC 9.1 K/uL (4.8-10.8) 11/21/18 09:56 RBC 4.01 Mil/uL (3.80-5.20) 11/21/18 09:56 Hgb 10.8 g/dL (11.0-16.0) L 11/21/18 09:56 Hct 33.3 % (34.0-47.0) L 11/21/18 09:56 MCV 83.1 fL (81.0-99.0) 11/21/18 09:56 MCH 27.0 pg (27.0-31.0) 11/21/18 09:56 MCHC 32.5 g/dL (33.0-37.0) L 11/21/18 09:56 RDW 17.3 % (11.5-14.5) H 11/21/18 09:56 Plt Count 163 K/uL (130-400) 11/21/18 09:56 MPV 11.1 fL (7.2-11.7) 11/21/18 09:56 Neut % (Auto) 61.5 % (50.0-75.0) 11/21/18 09:56 Lymph % (Auto) 28.9 % (20.0-40.0) 11/21/18 09:56 [place] % (Auto) 7.0 % (0.0-10.0) 11/21/18 09:56 Eos % (Auto) 1.6 % (0.0-4.0) 11/21/18 09:56 Baso % (Auto) 1.0 % (0.0-2.0) 11/21/18 09:56 Neut # (Auto) 5.6 K/uL (1.8-7.0) 11/21/18 09:56 Lymph # (Auto) 2.6 K/uL (1.0-4.3) 11/21/18 09:56 [place] # (Auto) 0.6 K/uL (0.0-0.8) 11/21/18 09:56 Eos # (Auto) 0.1 K/uL (0.0-0.7) 11/21/18 09:56 Baso # (Auto) 0.1 K/uL (0.0-0.2) 11/21/18 09:56 PT 13.5 SECONDS (9.7-12.2) H 11/21/18 09:56 INR 1.2 11/21/18 09:56 APTT 40 SECONDS (21-34) H 11/21/18 09:56 Sodium 138 mmol/L (132-148) 11/21/18 09:56 Potassium 4.9 mmol/L (3.6-5.2) 11/21/18 09:56 Chloride 101 mmol/L (98-107) 11/21/18 09:56 Carbon Dioxide 28 mmol/L (22-30) 11/21/18 09:56 Anion Gap 15 (10-20) 11/21/18 09:56 BUN 18 mg/dL (7-17) H 11/21/18 09:56 Creatinine 1.1 mg/dL (0.7-1.2) 11/21/18 09:56 Est GFR ( Amer) 57 11/21/18 09:56 Est GFR (Non-Af Amer) 47 11/21/18 09:56 POC Glucose (mg/dL) 210 mg/dL (65-110) H 11/25/18 17:23 Random Glucose 130 mg/dL (65-105) H 11/21/18 09:56 Calcium 9.6 mg/dl (8.6-10.4) 11/21/18 09:56 Total Bilirubin 0.6 mg/dL (0.2-1.3) 11/21/18 09:56 AST 22 U/L (14-36) 11/21/18 09:56 ALT 7 U/L (9-52) L D 11/21/18 09:56 Alkaline Phosphatase 74 U/L (38-126) 11/21/18 09:56 Total Creatine Kinase 35 U/L (30-135) 11/21/18 09:56 CK-MB (Mass) 0.88 ng/mL (0.0-3.38) 11/21/18 09:56 NT-Pro-B Natriuret Pep 2500 pg/mL (0-900) H 11/21/18 09:56 Total Protein 7.1 g/dL (6.3-8.3) 11/21/18 09:56 Albumin 4.3 g/dL (3.5-5.0) 11/21/18 09:56 Globulin 2.8 gm/dL (2.2-3.9) 11/21/18 09:56 Albumin/Globulin Ratio 1.5 (1.0-2.1) 11/21/18 09:56 Urine Color Colorless (YELLOW) 11/21/18 09:56 Urine Clarity Clear (Clear) 11/21/18 09:56 Urine pH 7.0 (5.0-8.0) 11/21/18 09:56 Ur Specific [place] 1.004 (1.003-1.030) 11/21/18 09:56 Urine Protein Negative mg/dL (NEGATIVE) 11/21/18 09:56 Urine Glucose (UA) Normal mg/dL (Normal) 11/21/18 09:56 Urine Ketones Negative mg/dL (NEGATIVE) 11/21/18 09:56 Urine Blood Negative (NEGATIVE) 11/21/18 09:56 Urine Nitrate Negative (NEGATIVE) 11/21/18 09:56 Urine Bilirubin Negative (NEGATIVE) 11/21/18 09:56 Urine Urobilinogen Normal mg/dL (0.2-1.0) 11/21/18 09:56 Ur Leukocyte Esterase Neg [place]/uL (Negative) 11/21/18 09:56 Urine WBC (Auto) < 1 /hpf (0-5) 11/21/18 09:56 Urine RBC (Auto) 1 /hpf (0-3) 11/21/18 09:56 Ur Squamous Epith Cells < 1 /hpf (0-5) 11/21/18 09:56 Discharge Exam - Head Exam Head Exam: ATRAUMATIC, NORMAL INSPECTION, NORMOCEPHALIC Discharge Plan - Follow Up Plan Condition: FAIR Disposition: HOME/ ROUTINE Instructions: Heart Healthy Diet, Diabetes Exchange Diet, Heart Failure, Adult (DC), Diabetes Diet Additional Instructions: FOLLOW UP WITH DR Ester COSTA IN HIS OFFICE ------CALL FOR APPOINTMENT FOLLOW UP WITH DR GIORDANO IN HIS OFFICE CONTINUE HOME MEDICATION ACTIVITY TOLERATED CALL DR Ester COSTA OR GO TO THE EMERGENCY ROOM IF SYMPTOM RETURN OR WORSENING Referrals: Kirit Giordano MD [Staff Provider] - Garcia Costa MD [Staff Provider] -
== END 2018-11-25 17:57 | disposition home or self-care (01) | DRG 293 ==
LOC: C.ER 08:38 → C.9E 11:25 → C.5S 11:49 → C.9E 11:59 → C.6T 12:01 → OBSVTOIN 16:41 → INTOOBSV 16:41 → C.6T 18:00 → OBSVTOIN 11-23 16:41
PROVIDERS: ADMIT Internal Medicine Nephrology; ATTEND Internal Medicine Nephrology
DX: I11.0 Hypertensive heart disease with heart failure (principal); I50.9 Heart failure, unspecified; E78.5 Hyperlipidemia, unspecified; I25.10 Atherosclerotic heart disease of native coronary artery without angina pectoris; I48.91 Unspecified atrial fibrillation; J44.9 Chronic obstructive pulmonary disease, unspecified; Z95.5 Presence of coronary angioplasty implant and graft; E11.9 Type 2 diabetes mellitus without complications